=== PATIENT | female | born 1995 | race Caucasian/White ===

== ENCOUNTER 2020-02-07 10:27 | Outpatient (REF) | payer MEDICAID, SELFPAY | END 2020-02-07 10:28 | disposition home or self-care (01) | LOC: HO.LAB 10:27 | PROVIDERS: Visit Provider Internal Medicine | DX: Z20.828 Contact with and (suspected) exposure to other viral communicable diseases (principal) | CPT/HCPCS: C9803; U0003 ==

== ENCOUNTER 2020-09-13 11:40 | Emergency (ER) | payer MEDICAID, SELFPAY ==
[2020-09-13 11:55] VITALS: BP 109/65; PULSE 91; RESP 16; TEMP 36.6; O2SAT 98; BMI 24.0
--- NOTE | 2020-09-13 12:03 | ED.EXTPRO ---
HPI - Extremity Problem General Chief complaint: Extremity Problem Stated complaint: painful lump rt leg Time Seen by Provider: 09/13/20 12:00 Source: patient Mode of arrival: ambulatory Limitations: no limitations History of Present Illness HPI Narrative: 25 y/o female presenting with a painful lump on the outside of her right calf that she noticed when she woke up this morning. She reports soft tissue tenderness in the area of the lateral proximal right calf without any skin changes or swelling. No pain with ambulation. Some discomfort with dorsiflexion and plantarflexion of her foot. She denies trauma, injury, weakness, numbness, or tingling. No redness or bruising to the area. MD Complaint: extremity pain Onset (ago): hour(s) Pain Consistency: intermittent Location: right and lower extremity Severity scale (1-10): 3 Quality: aching Radiation: none Relieving factors: rest Exacerbating factors: palpation Associated symptoms: denies other symptoms Related Data Previous Rx's Medication Instructions Recorded naproxen 500 mg PO BID PRN #20 tab 09/13/20 Allergies Allergy/AdvReac Type Severity Reaction Status Date / Time No Known Allergies Allergy Unverified 11/18/19 16:23 [No Known Allergies*] Review of Systems Review of Systems: Constitutional: No Fever, No Chills Cardiovascular: No Chest Pain, No SOB Respiratory: No dyspnea Gastrointestinal: No Nausea, No Vomiting Musculoskeletal: No joint pain, + Myalgias Skin: No Skin Lesions, No rash Neuro: No Weakness, No Numbness Heme/Lymph: No Bruising, No Lymphadenopathy PMFSH Past Medical History Attestation statement: The following information was validated with the patient. Medical History (Updated 09/13/20 @ 12:12 by LORENZO Martinez) Lumbar disc herniation with radiculopathy No known health problems Social History Social History Advance Directives: Yes Advance Directives Information Provided: No Advance Directives on File: No Patient : No Physical Exam Vital Signs: Vital Signs: Last Vital Signs Temp 97.8 F 09/13/20 11:55 Pulse 91 09/13/20 11:55 Resp 16 09/13/20 11:55 BP 109/65 09/13/20 11:55 Pulse Ox 98 09/13/20 11:55 Body Mass Index 24.0 Appearance: Alert. Oriented X3. No acute distress. HEENT: normal inspection CVS: Normal heart rate and rhythm. Pulses normal. Respiratory: No respiratory distress. Skin: Skin warm and dry. Normal skin color. Normal skin turgor. No rashes. Extremities: right lower leg normal to inspection. anteriolateral aspect of the right lower leg with a small, tender palpable soft tissue lesion in the area of the proximal anterior tibilalis muscle. No posterior calf tenderness, erythema, or swelling. Neuro: Oriented X 3. No motor deficit. No sensory deficit. Course Course Course Narrative: 25 y/o female presenting with nontraumatic right lower leg bump that she noticed this morning. No lesions visible on inspection; there is a small area of tenderness in the anterior tibialis muscle proximally, possible muscle spasm with slight tenderness. No erythema, fluctuance. No calf tenderness or swelling, doubt DVT. Will treat conservatively with shawn wrap, NSAID, ice/heat and have her f/u with PCP. Instructed to come back to the ER if she develops leg swelling, redness, warmth, chest pain or SOB. Stable for discharge home. Critical Care Time Critical Care Time Critical Care Time: No Discharge Plan Discharge Clinical Impression: Muscle spasm of right calf Patient Disposition: Home, Self-Care Instructions: Muscle Spasm (ED) Additional Instructions: Recommend using SHAWN wrap as needed for compression and support. Use ice and/or heat several times per day. Gently massage and stretch the area today. Take the prescribed anti-inflammatory medications as needed for pain and swelling. If you have worsening symptoms including pain, swelling or redness come back to the ER for further evaluation. Prescriptions: New naproxen 500 mg tablet 500 mg PO BID PRN (Reason: pain) Qty: 20 RF: 0 Interventions: ED Discharge Assessment Last Done: 09/13/20 12:33 Discharge Date/Time: 09/13/20 12:34
== END 2020-09-13 12:34 | disposition home or self-care (01) ==
LOC: HO.ED 12:22
PROVIDERS: Emergency Provider Emergency Medicine; PCP Internal Medicine
DX: M62.831 Muscle spasm of calf (principal); Z79.899 Other long term (current) drug therapy
CPT/HCPCS: 99283

== ENCOUNTER 2020-09-25 08:51 | Emergency (ER) | payer MEDICAID, SELFPAY ==
--- NOTE | ~2020-09-25 | US_ITS ---
EXAMINATION: US VENOUS ULTRASOUND WITH DOPPLER LOWER EXTREMITY, RIGHT CLINICAL INFORMATION: Swelling and redness right leg. Evaluate for DVT. Previous history of silicone injections in bilateral buttocks. COMPARISON: None TECHNIQUE: Ultrasound of the deep veins is performed from the hip to the calf with compression sonography and color and pulse Doppler assessment. Spectral analysis with color-flow imaging is performed. FINDINGS: There is normal venous compression and respiratory variation and augmented flow. The visualized common femoral vein, superficial femoral vein, profunda femoral vein, popliteal vein, and the trifurcation region shows no evidence of deep venous thrombosis. There is no significant popliteal fossa cyst. Incidental incidental note is made of distinct ovoid shaped hyperechoic areas in the right lateral davey/cough area corresponding to areas of redness and warmth seen visually. If the patient's symptoms persist, followup ultrasound in 5 days 7 days might be of value to exclude proximal propagation from a non-visualized calf vein. US/US venous duplex LE RT IMPRESSION: No DVT demonstrated in the right lower extremity. Hyperechoic areas along the right lateral davey/calf deep to subcutaneous region. Question focal cellulitis. There is no focal fluid collection seen.
[2020-09-25 08:57] VITALS: BP 98/61; PULSE 104; RESP 16; TEMP 36.7; O2SAT 98; BMI 24.0
--- NOTE | 2020-09-25 09:19 | ED_ITS ---
HPI - Extremity Problem General Chief complaint: Extremity Problem Stated complaint: leg swelling Time Seen by Provider: 09/25/20 09:19 Source: patient Mode of arrival: ambulatory Limitations: no limitations History of Present Illness HPI Narrative: 25 yo female here with with complaints of right leg swelling, redness, warmth and pain x 2 weeks. No injury or trauma. Seen here 09/13 and thought to be muscle spasm and treated conservatively. Patient now feels like the redness and swelling is increased. No SOB/CP. No fevers, chills. S/p lumbar surgery 3-4 weeks ago. Related Data Previous Rx's Medication Instructions Recorded naproxen 500 mg PO BID PRN #20 tab 09/13/20 doxycycline monohydrate 100 mg PO BID #20 cap 09/25/20 Allergies Allergy/AdvReac Type Severity Reaction Status Date / Time No Known Allergies Allergy Unverified 11/18/19 16:23 [No Known Allergies*] Review of Systems Review of Systems: Yes all other systems are reviewed and are negative Constitutional: Constitutional: Reports no additional constitutional complaints, Denies body ache(s), Denies chills, Denies fever(s), Denies headache(s) and Denies weakness Eyes: Eyes: Reports no additional eye complaints and Denies change in vision ENT: Reports system reviewed and no additional complaints, except as documented, Denies dizziness, Denies headache(s), Denies nasal congestion, Denies nasal discharge and Denies neck pain Cardiovascular: Cardiovascular: Reports no additional cardiovascular complaints, Denies chest pain, Reports leg edema and Denies dyspnea Respiratory: Respiratory: Reports no additional respiratory complaints, Denies cough and Denies dyspnea Gastrointestinal: Gastrointestinal: Reports no additional gastrointestinal complaints, Denies abdominal pain, Denies diarrhea, Denies nausea and Denies vomiting Genitourinary: Genitourinary: Reports no additional female genitourinary complaints and Denies urinary incontinence Musculoskeletal: Musculoskeletal: Reports no additional musculoskeletal complaints, Denies back pain, Denies arthralgias, Denies joint swelling, Denies neck pain, Denies numbness and Denies tingling Integumentary/Breasts: Skin/Breast: Reports system reviewed and no additional complaints, except as docu, Reports swelling, Reports erythema and Denies rash Neurologic: Reports system reviewed and no additional complaints, except as documented, Denies Abnormal speech present, Denies dizziness, Denies headache(s), Denies numbness, Denies tingling and Denies weakness PMFSH Past Medical History Attestation statement: The following information was validated with the patient. Source: old records reviewed and nursing notes reviewed Medical History Lumbar disc herniation with radiculopathy No known health problems Social History Social History Advance Directives: Yes Advance Directives Information Provided: No Advance Directives on File: No Patient : No Physical Exam Vital Signs: Vital Signs: Last Vital Signs Temp 98.1 F 09/25/20 08:57 Pulse 104 H 09/25/20 08:57 Resp 16 09/25/20 08:57 BP 98/61 09/25/20 08:57 Pulse Ox 98 09/25/20 08:57 Body Mass Index 24.0 Const: General: cooperative, healthy appearing, comfortable and no acute distress Orientation/consciousness: patient oriented x3 Limitations: no limitations HENMT: Head: Yes normal to inspection Ears: hearing grossly normal bilaterally General nose exam: Normal external nose present Face and sinus: Yes normal facial exam Mouth: Normal oral and palatal mucosa present Throat: Yes posterior oropharynx normal Eyes: General: appearance normal, both eyes and all related structures Pupi ls: Equal, round and reactive pupils present Neck: Neck: Yes normal visual inspection Chest: Chest palpation & inspection: normal inspection of the chest Resp: Effort & Inspection: normal respiratory effort Auscultation: clear to auscultation bilaterally Cardio: Rate: regular rate Rhythm: regular rhythm Peripheral pulses: Peripheral pulses 2+ throughout GI: Inspection: Yes normal to inspection Palpation (GI): Soft to palpation and nontender Auscultation: normal bowel sounds Back/Spine/Pelvis: Thoracic/Lumbar Spine: thoracic and lumbar spine normal to inspection Skin: General skin exam: no rashes or lesions noted Neuro: General: patient oriented x3, no focal motor deficits and normal sensation to monofilament Cranial nerves: Yes Equal, round and reactive pupils present Cognition (Neuro): normal cognition Speech: No Abnormal speech present Gait exam (Neuro): Normal gait present Motor exam (neuro): 5/5 motor strength present throughout Extrem: Other: To the right lateral calf there is a circular area of erythema, tenderness, warmth with no fluctuance or induration. There is swelling to the calf-non pitting. Tenderness to area of erythema and posterior calf. General: Yes normal to inspection Course Course Course Narrative: RLE erythema, warmth, swelling and pain x2 weeks in the setting of recent lumbar surgery. Exam is c/w with area of cellulitis with no obvious drainable fluid collection. D/t swelling of calf with posterior pain will check US to r/o underlying DVT. 1230-labs are unremarkable. The ultrasound is negative for DVT. Ultrasound shows no drainable fluid collection. Likely cellulitis. Will place patient on a brief course of antibiotics. Reviewed worrisome signs and symptoms of when to return to the emergency department. Comfortable discharge home. MDM - Extremity (Nontraumatic) MDM Narrative Medical decision making narrative: dvt, cellulitis Medical Records Attestation: I reviewed the patient's medical records. Lab Data Attestation: I reviewed the patient's lab results. Result diagrams: 09/25/20 10:14 09/25/20 10:14 Labs: Lab Results 09/25/20 09/25/20 Range/Units 10:14 10:14 WBC 7.9 (4.8-10.8) X10*3/uL RBC 4.23 (4.20-5.50) X10*6/uL Hgb 12.7 (12.0-16.0) g/dl Hct 37.3 (37-47) % MCV 88.2 (80-98) fL MCH 30.0 (27.0-33.0) pg MCHC 34.0 (31.0-35.0) g/dl RDW 11.9 (11.0-16.0) % Plt Count 251 (160-400) X10*3/uL MPV 9.6 (9.4-12.3) fL Immature Gran % (Auto) 0.3 (0.0-0.4) % Neut % (Auto) 74.6 H (45-73) % Lymph % (Auto) 18.7 L (20-40) % [place] % (Auto) 5.9 (2-11) % Eos % (Auto) 0.4 (0-4) % Baso % (Auto) 0.1 (0-2) % Lymph # (Auto) 1.5 (1.2-4.9) X10*3/uL [place] # (Auto) 0.5 (0.1-1.2) X10*3/uL Eos # (Auto) 0.0 (0.0-0.4) X10*3/uL Baso # (Auto) 0.0 (0.0-0.2) X10*3/uL Abs Immat Gran (auto) 0.02 (0.00-0.03) X10*3/uL Absolute Neuts (auto) 5.9 (2.0-8.3) X10*3/uL Absolute Nucleated RBC 0.000 (0.0-0.012) X10*3/uL Nucleated RBC % (auto) 0.0 (0.0-0.2) /100WBC Sodium 141 (135-145) mmol/L Potassium 4.4 (3.3-5.1) mmol/L Chloride 108 (96-108) mmol/L Carbon Dioxide 26 (22-29) mmol/L Anion Gap 11 L (12-20) BUN 9 (9-16) mg/dL Creatinine 0.68 (0.5-1.4) mg/dL Estim Creat Clear Calc 107.3 Estimated GFR > 60 Random Glucose 76 (60-115) mg/dL Calcium 8.8 (8.4-10.2) mg/dL Total Bilirubin 0.4 (0.0-1.0) mg/dL Direct Bilirubin 0.2 (0.0-0.5) mg/dL AST 17 (5-31) U/L ALT 11 (0-31) U/L Alkaline Phosphatase 64 (39-117) U/L Total Protein 7.2 (6.5-8.0) g/dL Albumin 4.1 (3.5-5.0) g/dL Imaging Data Venous US: Attestation: I personally reviewed and interpreted this imaging study as follows: Radiologist's impression: FINDINGS: There is normal venous compression and respiratory variation and augmented flow. The visualized common femoral vein, superficial femoral vein, profunda femoral vein, popliteal vein, and the trifurcation region shows no evidence of deep venous thrombosis. There is no significant popliteal fossa cyst. Incidental incidental note is made of distinct ovoid shaped hyperechoic areas in the right lateral davey/cough area corresponding to areas of redness and warmth seen visually. If the patient's symptoms persist, followup ultrasound in 5 days 7 days might be of value to exclude proximal propagation from a non-visualized calf vein. US/US venous duplex LE RT IMPRESSION: No DVT demonstrated in the right lower extremity. Hyperechoic areas along the right lateral davey/calf deep to subcutaneous region. Question focal cellulitis. There is no focal fluid collection seen. Discharge Plan Discharge Clinical Impression: Cellulitis Qualifiers: Site of cellulitis: extremity Site of cellulitis of extremity: lower extremity Laterality: right Qualified Code(s): L03.115 - Cellulitis of right lower limb Patient Disposition: Home, Self-Care Instructions: Cellulitis (ED) Prescriptions: New doxycycline monohydrate 100 mg capsule 100 mg PO BID Qty: 20 RF: 0 No Action naproxen 500 mg tablet 500 mg PO BID PRN (Reason: pain) Qty: 20 RF: 0 Referrals: Wesley Spaulding MD [Primary Care Provider] - 2 days Interventions: ED Discharge Assessment Last Done: 09/25/20 11:44 Discharge Date/Time: 09/25/20 11:44
[2020-09-25 10:21] LABS: MANUAL DIFF FLAG NO
[2020-09-25 10:22] LABS: Basophils Percent Auto 0.1 % (0-2); Eosinophils Percent Auto 0.4 % (0-4); Hematocrit 37.3 % (37-47); Hemoglobin 12.7 g/dl (12.0-16.0); Imm Gran Abs Auto 0.02 X10*3/uL (0.00-0.03); Imm Gran Pct Auto 0.3 % (0.0-0.4); Lymphocytes Absolute Auto 1.5 X10*3/uL (1.2-4.9); Lymphocytes Percent Auto 18.7 % (20-40); Mean Corpuscular Volume 88.2 fL (80-98); Mean Platelet Volume 9.6 fL (9.4-12.3); Monocytes Absolute Auto 0.5 X10*3/uL (0.1-1.2); Monocytes Percent Auto 5.9 % (2-11); Neutrophils Absolute Auto 5.9 X10*3/uL (2.0-8.3); Neutrophils Percent Auto 74.6 % (45-73); Platelet Count 251 X10*3/uL (160-400); Red Blood Count 4.23 X10*6/uL (4.20-5.50); Red Cell Distribution Width 11.9 % (11.0-16.0); White Blood Count 7.9 X10*3/uL (4.8-10.8)
[2020-09-25 10:57] LABS: Alanine Aminotransferase 11 U/L (0-31); Albumin Level 4.1 g/dL (3.5-5.0); Alkaline Phosphatase 64 U/L (39-117); Anion Gap 11 (12-20); Aspartate Amino Transferase 17 U/L (5-31); Bilirubin Direct 0.2 mg/dL (0.0-0.5); Bilirubin Total 0.4 mg/dL (0.0-1.0); Blood Urea Nitrogen 9 mg/dL (9-16); Calcium 8.8 mg/dL (8.4-10.2); Carbon Dioxide 26 mmol/L (22-29); Chloride 108 mmol/L (96-108); Creatinine Clr Calc Pharmacy 107.3; Estimated Glomerular Filt Rate > 60; Glucose Random 76 mg/dL (60-115); Potassium 4.4 mmol/L (3.3-5.1); Sodium 141 mmol/L (135-145); Total Protein 7.2 g/dL (6.5-8.0)
== END 2020-09-25 11:44 | disposition home or self-care (01) ==
PROVIDERS: Nurse Practitioner Family; Emergency Provider Emergency Medicine Emergency Medical Services; PCP Internal Medicine
DX: L03.115 Cellulitis of right lower limb (principal); M79.661 Pain in right lower leg
CPT/HCPCS: 36415; 80048; 80076; 85025; 93971; 99283; 99284

== ENCOUNTER 2020-10-26 13:38 | Emergency (ER) | payer MEDICAID, SELFPAY ==
[2020-10-26 13:40] VITALS: BP 111/68; PULSE 99; RESP 16; TEMP 36.9; O2SAT 98; BMI 25.7
[2020-10-26] MEDS: Erythromycin Base 0.5% Oph Oin 1 GM TUBE 1 CM EYE-BOTH (14:03)
[2020-10-26] MEDS: predniSONE 20 MG TABLET 60 MG PO (14:03)
[2020-10-26] MEDS: Famotidine 20 MG TABLET PO (14:03)
[2020-10-26] MEDS: diphenhydrAMINE HCL 25 MG TABLET PO (14:03)
[2020-10-26] MEDS: Loratadine 10 MG TABLET PO (14:04)
--- NOTE | 2020-10-26 14:05 | ED.ALLEREA ---
HPI - Allergic Reaction General Chief complaint: Allergic Reaction Stated complaint: allergic reaction Time Seen by Provider: 10/26/20 13:57 Source: patient Mode of arrival: ambulatory Limitations: no limitations History of Present Illness MD complaint: allergic reaction and facial swelling Onset (ago): day(s) (1) Exposure: other (false eyelashes and glue) Symptoms: rash, itching, facial swelling and other (runny nose) Severity: severe Treatment prior to arrival: none Previous Allergic Reaction History: none Related Data Previous Rx's Medication Instructions Recorded naproxen 500 mg tablet 500 mg PO BID PRN #20 tab 09/13/20 doxycycline monohydrate 100 mg 100 mg PO BID #20 cap 09/25/20 capsule erythromycin 5 mg/gram (0.5 %) eye 0.5 inch OPHTHALMIC (EYE) BID 7 10/26/20 ointment Days #3.5 g prednisone 20 mg tablet 60 mg PO DAILY 4 Days #12 tab 10/26/20 Allergies Allergy/AdvReac Type Severity Reaction Status Date / Time peach Allergy Angioedema Verified 10/26/20 13:44 plum Allergy Angioedema Verified 10/26/20 13:44 Review of Systems Review of Systems: Constitutional : No Fever, No Chills ENT/Mouth : no oral swelling, No Hoarseness, No Swallowing Difficulty Eyes: pos Eye Pain, pos Swelling, pos Redness Cardiovascular : No Chest Pain, No SOB Respiratory : No Cough, No Sputum, No Wheezing, No Smoke Exposure, No Dyspnea Gastrointestinal : No Nausea, No Vomiting, No Diarrhea, No abdominal Pain Genitourinary : No Dysuria, No Urinary Frequency, No Hematuria Musculoskeletal : No joint pain, No Myalgias, No Joint Swelling Skin : No Skin Lesions, positive rash Neuro : No Weakness, No Numbness, No Headache Psych : No Anxiety/Panic, No Depression Heme/Lymph: No Bruising, No Lymphadenopathy Endocrine : No Polyuria, No Polydipsia All other systems reviewed and are negative PMFSH Past Medical History Medical History Lumbar disc herniation with radiculopathy No known health problems Social History Social History (Updated 10/26/20 @ 14:13 by Marianne Wilkinson DO) Patient Tobacco Use Status: Never used Tobacco Use of substances other than those prescribed or required for medical reasons: No Advance Directives: No Advance Directives Information Provided: No Physical Exam Vital Signs: Vital Signs: Last Vital Signs Temp 98.4 F 10/26/20 13:40 Pulse 99 10/26/20 13:40 Resp 16 10/26/20 13:40 BP 111/68 10/26/20 13:40 Pulse Ox 98 10/26/20 13:40 Body Mass Index 25.7 Appearance: Alert. Oriented X3. No acute distress. Eyes: Pupils equal, round and reactive to light. injected sclera, bilateral mild chemosis, moderate periorbital swelling ENT: Pharynx normal. Neck: Normal inspection. Neck supple. CVS: Normal heart rate and rhythm. Pulses normal. Respiratory: No respiratory distress. Breath sounds normal. Abdomen: Soft and non-tender. Skin: Skin warm and dry. Normal skin color. Normal skin turgor. Extremities: No lower extremity edema. No calf ttp Neuro: Oriented X 3. No motor deficit. No sensory deficit. MDM - Allergic Reaction MDM Narrative Medical decision making narrative: 25 yo female with localized allergic reaction to bilateral eyes following eyelash use - at this time benadryl, claritin, oral steroids, erythromycin ointment ordered. Stable for DC home Discharge Plan Discharge Clinical Impression: Allergic reaction Qualifiers: Encounter type: initial encounter Qualified Code(s): T78.40XA - Allergy, unspecified, initial encounter Patient Disposition: Home, Self-Care Instructions: General Allergic Reaction (ED) Additional Instructions: return to ED for any worsening symptoms or concerns can apply ice pack as well to help to decrease swelling Prescriptions: New prednisone 20 mg tablet 60 mg PO DAILY 4 Days Qty: 12 RF: 0 erythromycin 5 mg/gram (0.5 %) ointment 0.5 inch ophthalmic (eye) BID 7 Days Qty: 3.5 RF: 0 No Action doxycycline monohydrate 100 mg capsule 100 mg PO BID Qty: 20 RF: 0 naproxen 500 mg tablet 500 mg PO BID PRN (Reason: pain) Qty: 20 RF: 0 Stand Alone Forms: Work/School Release
== END 2020-10-26 14:39 | disposition home or self-care (01) ==
PROVIDERS: Emergency Provider Emergency Medicine; PCP Internal Medicine
DX: T78.40XA Allergy, unspecified, initial encounter (principal); H11.423 Conjunctival edema, bilateral; X58.XXXA Exposure to other specified factors, initial encounter
CPT/HCPCS: 99283; 99284; Q0163

== ENCOUNTER 2020-12-08 08:05 | Emergency (ER) | payer MEDICAID, SELFPAY ==
--- NOTE | ~2020-12-08 | US_ITS ---
EXAMINATION: US VENOUS ULTRASOUND WITH DOPPLER LOWER EXTREMITY, RIGHT CLINICAL INFORMATION: right leg lateral palpable mass. Abscess? DVT? COMPARISON: 09/25/2020 TECHNIQUE: Ultrasound of the deep veins is performed from the hip to the calf with compression sonography and color and pulse Doppler assessment. Spectral analysis with color-flow imaging is performed. FINDINGS: There is normal venous compression and respiratory variation and augmented flow. The visualized common femoral vein, superficial femoral vein, profunda femoral vein, popliteal vein, and the trifurcation region shows no evidence of deep venous thrombosis. There is no significant popliteal fossa cyst. No fluid collections or lesions are identified in the area of palpable abnormality at the lateral lower leg. There is subcutaneous edema in this region. If the patient's symptoms persist, followup ultrasound in 5 days 7 days might be of value to exclude proximal propagation from a non-visualized calf vein. US/US venous duplex LE RT IMPRESSION: No DVT demonstrated in the right lower extremity. Subcutaneous edema in the area of palpable abnormality indicated by the patient. No fluid collections are identified.
[2020-12-08 08:19] VITALS: BP 112/56; PULSE 92; RESP 16; O2SAT 100; BMI 26.6
--- NOTE | 2020-12-08 08:42 | ED_ITS ---
HPI - General Adult General Chief complaint: General Medical Stated complaint: lump on rt leg Time Seen by Provider: 12/08/20 08:27 Source: patient Mode of arrival: ambulatory Limitations: no limitations History of Present Illness HPI narrative: Patient presents to the ED for lump on right calf that has been present since August. This is patient's 3rd visit. Patient denies any redness, fever, chills, pus discharge, foul odor, calf pain, any recent trauma, numbness/tingling, chest pain, or shortness of breath. Patient states also have small lump in groin area when she coughs or sit-ups. Patient denies any dys uria, flank pain, vaginal discharge, or vaginal bleeding. Related Data Previous Rx's Medication Instructions Recorded naproxen 500 mg tablet 500 mg PO BID PRN #20 tab 09/13/20 doxycycline monohydrate 100 mg 100 mg PO BID #20 cap 09/25/20 capsule erythromycin 5 mg/gram (0.5 %) eye 0.5 inch OPHTHALMIC (EYE) BID 7 10/26/20 ointment Days #3.5 g prednisone 20 mg tablet 60 mg PO DAILY 4 Days #12 tab 10/26/20 Allergies Allergy/AdvReac Type Severity Reaction Status Date / Time peach Allergy Angioedema Verified 10/26/20 13:44 plum Allergy Angioedema Verified 10/26/20 13:44 Review of Systems Review of Systems: Yes all other systems are reviewed and are negative Constitutional: Constitutional: Reports as per HPI and Reports no additional constitutional complaints Eyes: Eyes: Reports as per HPI and Reports no additional eye complaints ENT: Reports system reviewed and no additional complaints, except as documented and Reports as per HPI Cardiovascular: Cardiovascular: Reports as per HPI and Reports no additional cardiovascular complaints Respiratory: Respiratory: Reports as per HPI and Reports no additional respiratory complaints Gastrointestinal: Gastrointestinal: Reports as per HPI and Reports no joseph tional gastrointestinal complaints Comments: Right groin lump Genitourinary: Genitourinary: Reports no additional female genitourinary complaints and Reports as per HPI Musculoskeletal: Musculoskeletal: Reports no additional musculoskeletal co mplaints Comments: Right leg mass Neurologic: Reports system reviewed and no additional complaints, except as documented and Reports as per HPI Psychiatric: Psychiatric: Reports no additional psychiatric complaints and Reports as per HPI [facility] Past Medical History Medical History Lumbar disc herniation with radiculopathy No known health problems Social History Social History (Updated 10/26/20 @ 14:13 by Marianne Wilkinson DO) Alcohol intake: never Patient Tobacco Use Status: Never used Tobacco Advance Directives: No Patient : No Physical Exam Vital Signs: Vital Signs: Last Vital Signs Pulse 92 12/08/20 08:19 Resp 16 12/08/20 08:19 BP 112/56 L 12/08/20 08:19 Pulse Ox 100 12/08/20 08:19 Body Mass Index 26.6 Const: General: cooperative, healthy appearing, comfortable, no acute distress, well developed, alert, awake and Physically active Orientation/consciousness: patient oriented x3 HENMT: Head: Yes normal to inspection, Yes No palpable skull fracture present, Yes normocephalic, Yes atraumatic and No abrasion Eyes: General: appearance normal, both eyes and all related structures Neck: Neck: Yes normal visual inspection, Yes full ROM, Yes no lymphad enopathy, Yes no meningeal signs, Yes trachea midline, Yes supple and No tender Chest: Chest palpation & inspection: normal inspection of the chest and normal palpation of entire chest wall Resp: Effort & Inspection: normal respiratory effort and able to speak in complete sentences Auscultation: clear to auscultation bilaterally Cardio: Jugular venous distension: no JVD Heart sounds: S1 normal heart sound present and S2 normal heart sound present GI: Other: Small hernia i groin/reproducible. Negative for any abdominal tenderness. Patient denies any complaints. Negative lymphadenopathy. Inspection: Yes normal to inspection and No abdominal wall ecchymosis Palpation (GI): Soft to palpation, not firm, nontender, no guarding and not rigid : General: No CVA tenderness and Yes no CVA tenderness Back/Spine/Pelvis: Back: no CVA tenderness, No CVA tenderness and No back tenderness Skin: General skin exam: no rashes or lesions noted and elasticity normal Neuro: General: patient oriented x3, gait normal, no meningeal signs and CN's II-XI intact bilaterally Cranial nerves: Yes CN's II-XII intact bilaterally Extrem: General: Yes normal to inspection and Yes full ROM Upper/lower leg/hip images: 1. Positive for palpable mass that is non- erythamatous, non-tender, and non-fluctulant on palption. pedal pulses intact. motor, neuro, and vascular exam is intact. Psych: Appearance: grossly normal, well kempt and not disheveled Course Course Course Narrative: History physical exam does not indicate abscess or cellulitis. Most likely lipoma but was sent for repeat ultrasound to make sure is not a blood clot. Abdominal exam benign soft and nontender on palpation. Reevaluation(s) Reevaluation #1: Ultrasound lower extremity came back negative for abscess or blood clot. Informed to follow-up with surgery. Time: 10:13 Medical Decision Making MDM Narrative Medical decision making narrative: Lipoma Discharge Plan Discharge Clinical Impression: Lipoma of both lower extremities, Right groin hernia Patient Disposition: Home, Self-Care Instructions: Inguinal Hernia (ED), Lipoma (ED), Soft Tissue Mass (ED) Additional Instructions: Your ultrasound came back negative for blood clot or abscess. Please follow-up with surgeon for diagnosis of lipoma of leg and hernia right groin. Return to the ED for any increased leg swelling, redness, red streaks, warmth, pus dischar ge, foul odor, fever, chills, abdominal pain, dysuria, hematuria, groin pain, groin swelling, or any other concerning symptoms. Prescriptions: No Action doxycycline monohydrate 100 mg capsule 100 mg PO BID Qty: 20 RF: 0 naproxen 500 mg tablet 500 mg PO BID PRN (Reason: pain) Qty: 20 RF: 0 prednisone 20 mg tablet 60 mg PO DAILY 4 Days Qty: 12 RF: 0 erythromycin 5 mg/gram (0.5 %) ointment 0.5 inch ophthalmic (eye) BID 7 Days Qty: 3.5 RF: 0 Referrals: Sudhakar Lindquist MD [Physician] - 2 days (Right leg lipoma, right groin hernia) Interventions: ED Discharge Assessment Last Done: 12/08/20 10:28 Discharge Date/Time: 12/08/20 10:28 Print Language: Armenian
== END 2020-12-08 10:28 | disposition home or self-care (01) ==
PROVIDERS: Emergency Provider Emergency Medicine Emergency Medical Services; PCP Internal Medicine
DX: D17.23 Benign lipomatous neoplasm of skin and subcutaneous tissue of right leg (principal); D17.24 Benign lipomatous neoplasm of skin and subcutaneous tissue of left leg; K40.90 Unilateral inguinal hernia, without obstruction or gangrene, not specified as recurrent; R60.0 Localized edema
CPT/HCPCS: 93971; 99283; 99284

== ENCOUNTER 2020-12-22 09:33 | Emergency (ER) | payer MEDICAID, SELFPAY ==
[2020-12-22 09:50] VITALS: BP 113/63; PULSE 82; RESP 16; TEMP 36.4; O2SAT 98; BMI 25.7
--- NOTE | 2020-12-22 11:00 | ED.SKABFB ---
HPI - Skin/Abscess/Foreign Bdy General Chief complaint: Skin/Abscess/Foreign Body Stated complaint: rt leg lump Time Seen by Provider: 12/22/20 09:57 Source: patient Mode of arrival: ambulatory Limitations: no limitations History of Present Illness HPI narrative: 25-year-old female presenting to the ED with a lump to her right lateral aspect of her calf that has been there for a few months since August. She reports that she was given antibiotics back in August and her symptoms improved although they are now worsening. She was seen here on 12/08/2020 and had a negative ultrasound for DVT. 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 She has a follow-up with the general surgeon next month. She denies any other symptoms complaints or concerns at this time. complaint: other (Lump) Onset (ago): month(s) (Few months) Location: RLE Severity: mild Quality: aching and constant Pain Consistency: constant Relieving factors: none Exacerbating factors: palpation Context: other (see above ) Associated symptoms: denies other symptoms Treatments prior to arrival: none Related Data Previous Rx's Medication Instructions Recorded naproxen 500 mg tablet 500 mg PO BID PRN #20 tab 09/13/20 doxycycline monohydrate 100 mg 100 mg PO BID #20 cap 09/25/20 capsule erythromycin 5 mg/gram (0.5 %) eye 0.5 inch OPHTHALMIC (EYE) BID 7 10/26/20 ointment Days #3.5 g prednisone 20 mg tablet 60 mg PO DAILY 4 Days #12 tab 10/26/20 doxycycline hyclate 100 mg tablet 100 mg PO BID 10 Days #20 tab 12/22/20 naproxen 500 mg tablet 500 mg PO BID PRN #14 tab 12/22/20 Allergies Allergy/AdvReac Type Severity Reaction Status Date / Time peach Allergy Angioedema Verified 10/26/20 13:44 plum Allergy Angioedema Verified 10/26/20 13:44 Review of Systems Review of Systems: Constitutional : No Weight loss, No Fever, No Chills, No Night Sweats, No Fatigue, NoMalaise ENT/Mouth: No ear pain, No sore throat, No Difficulty swallowing Cardiovascular : No Chest Pain, No SOB, No Dyspnea on Exertion, No Orthopnea, NoEdema, No Palpitations Respiratory : No Cough, No Sputum, No Wheezing, No Dyspnea Gastrointestinal : No Nausea, No Vomiting, No abdominal pain, No Diarrhea, No blood streaked emesis, No coffee-ground emesis, No gross hematemesis, No blood streak stool, No gross hematochezia, No Melena Genitourinary : No irregular bleeding, No Dysuria, No Urinary Frequency, No Hematuria,No Urinary Incontinence, No Urgency, No Flank Pain Musculoskeletal : No lump to right outer leg, No Myalgias, No Joint Swelling Skin : No Skin Lesions, No rash Neuro : No Weakness, No Numbness, No Paresthesias, No Loss of Consciousness, NoDizziness, No Headache Psych : No Social Issues, Heme/Lymph: No Bruising, No Bleeding,No Lymphadenopathy Endocrine : No Polyuria, No Polydipsia, No Temperature Intolerance Yes all other systems are reviewed and are negative [facility] Past Medical History Attestation statement: The following information was validated with the patient. Medical History Lumbar disc herniation with radiculopathy No known health problems Social History Social History Alcohol intake: never Patient Tobacco Use Status: Never used Tobacco Advance Directives: No Patient : Yes Physical Exam Vital Signs: Vital Signs: Last Vital Signs Temp 97.6 F 12/22/20 09:50 Pulse 82 12/22/20 09:50 Resp 16 12/22/20 09:50 BP 113/63 12/22/20 09:50 Pulse Ox 98 12/22/20 09:50 Body Mass Index 25.7 vital signs have been reviewed as normal and appeared to be correct. Blood pressure normal Heart rate normal. Respiration rate normal. Temperature normal. Oxygen saturation normal. Appearance: Alert. Oriented X3. No acute distress. Head: Normal external exam. Normocephalic. Atraumatic. Eyes: PERRLA. EOMI. Conjunctiva and sclera normal. Eyelids normal. ENT: Pharynx normal. Uvula midline. Moist mucous membranes. Neck: Normal inspection. Neck supple. FROM. CVS: Normal heart rate and rhythm. Respiratory: No respiratory distress. Painless inspiration. Skin: Skin warm and dry. Normal skin color. Normal skin turgor. No rashes/lesions/lacerations noted. Extremities: To right lower extremity at the lateral aspect of the lower leg patient has mild soft tissue swelling and tenderness all patient. No erythema/streaking/foreign body/fluctuance or signs of infection noted. No lower extremity edema. No calf tenderness is noted. Otherwise all other extremities exhibit normal range of motion. Extremities nontender. Neuro: Oriented X 3. No motor deficit. No sensory deficit. Reflexes normal. Normal steady gait. No focal neuro deficits noted. Vascular: + radial pulses/+ 2 distal pedal pulses/+2 dorsalis pedis b/l. Normal cap refill. No cyanosis noted to upper extremity nails and lower extremity toes nails. Course Course Course Narrative: 25-year-old female presenting to the ED with a lump to her right lateral aspect of her calf that has been there for a few months since August. She reports that she was given antibiotics back in August and her symptoms improved although they are now worsening. She was seen here on 12/08/2020 and had a negative ultrasound for DVT. 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 She has a follow-up with the general surgeon next month. She denies any other symptoms complaints or concerns at this time. On exam patient appears to have soft tissue swelling possibly a lymphoma it does not appear cellulitic although patient continues to request antibiotics due to she reports that when she was given antibiotics on August her symptoms improved. Therefore will give a course of antibiotics and explained to her that she needs to follow up with the general surgeon her PCP and to return if any new or worsening symptoms. Patient understands agrees with this plan. MDM - Skin/Abscess/Foreign Bdy Medical Records Attestation: I reviewed the patient's medical records. Discharge Plan Discharge Clinical Impression: Localized soft tissue swelling Patient Disposition: Home, Self-Care Instructions: Soft Tissue Mass (ED) Prescriptions: New doxycycline hyclate 100 mg tablet 100 mg PO BID 10 Days Qty: 20 RF: 0 naproxen 500 mg tablet 500 mg PO BID PRN (Reason: pain) Qty: 14 RF: 0 No Action doxycycline monohydrate 100 mg capsule 100 mg PO BID Qty: 20 RF: 0 naproxen 500 mg tablet 500 mg PO BID PRN (Reason: pain) Qty: 20 RF: 0 prednisone 20 mg tablet 60 mg PO DAILY 4 Days Qty: 12 RF: 0 erythromycin 5 mg/gram (0.5 %) ointment 0.5 inch ophthalmic (eye) BID 7 Days Qty: 3.5 RF: 0 Referrals: Wesley Spaulding MD [Primary Care Provider] - 2 days Print Language: Filipino
== END 2020-12-22 11:19 | disposition home or self-care (01) ==
PROVIDERS: Emergency Provider Emergency Medicine; PCP Internal Medicine
DX: R60.0 Localized edema (principal); Z79.899 Other long term (current) drug therapy
CPT/HCPCS: 99283

== ENCOUNTER 2021-08-19 02:45 | Emergency (ER) | payer MEDICAID, SELFPAY ==
[2021-08-19 02:49] VITALS: BP 115/96; PULSE 105; RESP 34; TEMP 36.2; O2SAT 95; BMI 27.4
--- NOTE | 2021-08-19 03:11 | ED.GENADULT ---
HPI - General Adult General Chief complaint: Anxiety Stated complaint: anxiety attack post alcohol Time Seen by Provider: 08/19/21 03:09 Source: patient Limitations: no limitations History of Present Illness HPI narrative: This is a 26-year-old female who admits drinking alcohol tonight, 4 beers, and states that she tends to have a reaction to drinking alcohol were she develops anxiety. The patient notes that she has tingling in her hands. She did vomit few times. She denies abdominal pain. Related Data Previous Rx's Medication Instructions Recorded naproxen 500 mg tablet 500 mg PO BID PRN pain #20 tabs 09/13/20 doxycycline monohydrate 100 mg 100 mg PO BID #20 caps 09/25/20 capsule erythromycin 5 mg/gram (0.5 %) eye 0.5 inch ophthalmic (eye) BID 7 10/26/20 ointment days #3.5 grams prednisone 20 mg tablet 60 mg PO DAILY 4 days #12 tabs 10/26/20 doxycycline hyclate 100 mg tablet 100 mg PO BID 10 days #20 tabs 12/22/20 naproxen 500 mg tablet 500 mg PO BID PRN pain #14 tabs 12/22/20 lorazepam 1 mg tablet 1 mg PO TID PRN anxiety #10 tabs 08/19/21 ondansetron 4 mg disintegrating 4 mg PO Q6H PRN nausea and 08/19/21 tablet vomiting #10 tabs Allergies Allergy/AdvReac Type Severity Reaction Status Date / Time peach Allergy Angioedema Verified 08/19/21 02:51 plum Allergy Angioedema Verified 08/19/21 02:51 Review of Systems Review of Systems: As per HPI [facility] Past Medical History Medical History Lumbar disc herniation with radiculopathy No known health problems Social History Social History Alcohol intake: never Patient Tobacco Use Status: Never used Tobacco Advance Directives: No Advance Directives Information Provided: Yes Physical Exam ED Vital Signs: Vital Signs - 24 hr 08/19/21 02:49 Temperature 97.2 F Pulse Rate 105 H Respiratory Rate 34 H Blood Pressure 115/96 H Pulse Oximetry 95 Oxygen Delivery Method Room Air BMI result Body Mass Index 27.4 Const Other: Patient just excluding with hands, hyperventilating General: no acute distress Orientation/consciousness: patient oriented x3 HENMT Head: Yes normal to inspection General nose exam: Normal external nose present Mouth: moist mucous membranes Throat: Yes posterior oropharynx normal, Yes tonsils normal and Yes uvula midline Eyes Eyelids: Yes eyelids normal Conjunctivae: conjunctivae normal Pupils: Equal, round and reactive pupils present Neck Neck: Yes supple Resp Effort & Inspection: normal respiratory effort Auscultation: clear to auscultation bilaterally Cardio Rate: regular rate Rhythm: regular rhythm Heart sounds: S1 normal heart sound present, S2 normal heart sound present, no gallops, no murmurs and no rubs GI Inspection: No distended Palpation (GI): Soft to palpation and nontender Auscultation: normal bowel sounds Skin General skin exam: other (Warm and dry) Neuro General: patient oriented x3 and CN's II-XI intact bilaterally Cranial nerves: Yes Equal, round and reactive pupils present Extrem General: Yes no pedal edema Psych Affect: normal affect Attitude: cooperative Medical Decision Making [facility] Narrative Medical decision making narrative: Patient with panic attack and hyperventilation, states this happens when she drinks alcohol. Patient admitted having drunk too much, admitted for years. Patient also complained of nausea vomiting. Patient was given Zofran 4 mg, that her Reglan and 10 mg IM, then the 4 mg of Zofran ODT. She is also good Ativan 1 mg, and hyperventilation did improve, as did her nausea. Patient was able to ambulate to the bathroom steadily. Discharge Plan Discharge Clinical Impression: Acute anxiety, Vomiting, Alcohol intoxication Patient Disposition: Home, Self-Care Instructions: Acute Nausea and Vomiting (ED), Panic Disorder (ED) Additional Instructions: Avoid alcohol use if it makes you developed panic attacks. Use lorazepam as prescribed p.r.n. anxiety or panic attack. He has ondansetron as prescribed p.r.n. nausea. Drink Plenty of fluids Prescriptions: New lorazepam 1 mg tablet 1 mg PO TID PRN (Reason: anxiety) Qty: 10 0RF ondansetron 4 mg tablet,disintegrating 4 mg PO Q6H PRN (Reason: nausea and vomiting) Qty: 10 0RF No Action doxycycline monohydrate 100 mg capsule 100 mg PO BID Qty: 20 0RF naproxen 500 mg tablet 500 mg PO BID PRN (Reason: pain) Qty: 20 0RF prednisone 20 mg tablet 60 mg PO DAILY 4 Days Qty: 12 0RF erythromycin 5 mg/gram (0.5 %) ointment 0.5 inch ophthalmic (eye) BID 7 Days Qty: 3.5 0RF doxycycline hyclate 100 mg tablet 100 mg PO BID 10 Days Qty: 20 0RF naproxen 500 mg tablet 500 mg PO BID PRN (Reason: pain) Qty: 14 0RF
[2021-08-19] MEDS: Ondansetron ODT 4 MG TAB.RAPDIS TRANSLINGU ×2 (03:16→05:48)
[2021-08-19] MEDS: LORazepam 2 MG/ML VIAL 1 MG IM (03:17)
[2021-08-19] MEDS: Metoclopramide HCl 10 MG/2 ML VIAL IM (04:11)
== END 2021-08-19 06:41 | disposition home or self-care (01) ==
PROVIDERS: Emergency Provider Emergency Medicine; PCP Internal Medicine
DX: F41.1 Generalized anxiety disorder (principal); F10.129 Alcohol abuse with intoxication, unspecified; R20.2 Paresthesia of skin; Y90.9 Presence of alcohol in blood, level not specified; Z79.899 Other long term (current) drug therapy
CPT/HCPCS: 96372; 99283; 99284; J2060; J2765

== ENCOUNTER 2022-04-08 23:24 | Emergency (ER) | payer OTHER, SELFPAY ==
[2022-04-08 23:37] VITALS: BP 112/65; PULSE 91; RESP 18; TEMP 36.9; O2SAT 98; BMI 26.6
--- NOTE | 2022-04-09 00:16 | ED_ITS ---
HPI - Eye Problem General Chief complaint: Eye Problems Stated complaint: Red, Itchy eyes Time Seen by Provider: 04/09/22 00:05 Source: patient Mode of arrival: ambulatory Limitations: no limitations History of Present Illness HPI Narrative: 27-year-old female with no major medical problems presents with bilateral eye pain, redness, swelling and irritation. She also describes wilber discharge. There is no photophobia. Symptoms are moderate in nature. Daughter also has similar symptoms. Patient was tested positive for COVID 1 week ago. Related Data Previous Rx's Medication Instructions Recorded naproxen 500 mg tablet 500 mg PO BID PRN pain #20 tabs 09/13/20 doxycycline monohydrate 100 mg 100 mg PO BID #20 caps 09/25/20 capsule erythromycin 5 mg/gram (0.5 %) eye 0.5 inch ophthalmic (eye) BID 7 10/26/20 ointment days #3.5 grams prednisone 20 mg tablet 60 mg PO DAILY 4 days #12 tabs 10/26/20 doxycycline hyclate 100 mg tablet 100 mg PO BID 10 days #20 tabs 12/22/20 naproxen 500 mg tablet 500 mg PO BID PRN pain #14 tabs 12/22/20 lorazepam 1 mg tablet 1 mg PO TID PRN anxiety #10 tabs 08/19/21 ondansetron 4 mg disintegrating 4 mg PO Q6H PRN nausea and 08/19/21 tablet vomiting #10 tabs polymyxin B sulfate 10,000 1 drp ophthalmic (eye) Q3H 7 days 04/09/22 unit-trimethoprim 1 mg/mL eye #10 mL drops (Polytrim) Allergies Allergy/AdvReac Type Severity Reaction Status Date / Time peach Allergy Angioedema Verified 04/08/22 23:39 plum Allergy Angioedema Verified 04/08/22 23:39 Review of Systems Review of Systems: CONSTITUTIONAL: Denies weight loss, fever and chills. HEENT: Denies changes in vision and hearing. RESPIRATORY: Denies SOB and cough. CV: Denies palpitations no CP. GI: Denies abdominal pain, nausea, vomiting and diarrhea. : Denies dysuria and urinary frequency. MSK: Denies myalgia and joint pain. SKIN: Denies rash and pruritus. NEUROLOGICAL: Denies headache and syncope. PSYCHIATRIC: Denies recent changes in mood. Denies anxiety and depression. All other ROS are negative unless in HPI PMFSH Past Medical History Medical History Lumbar disc herniation with radiculopathy No known health problems Social History Social History Alcohol intake: never Patient Tobacco Use Status: Never used Tobacco Physical Exam Vital Signs: Vital Signs: Last Vital Signs Temp 98.5 F 04/08/22 23:37 Pulse 91 04/08/22 23:37 Resp 18 04/08/22 23:37 BP 112/65 04/08/22 23:37 Pulse Ox 98 04/08/22 23:37 O2 Del Method 04/08/22 23:37 BMI result Body Mass Index 26.6 GEN: Well developed, no acute distress, alert, oriented HEENT: Normocephalic, atraumatic, normal external ears, nose appears normal Eyes: Bilateral conjunctival injection Neck: Supple, no lymphadenopathy Respiratory: Talks in complete sentences, no respiratory distress Extremities: No clubbing cyanosis or edema Neurologic: No focal neurologic deficits, cranial nerves 2-12 intact, gait normal Skin: No rash Course Course Course Narrative: 27-year-old female presents with bilateral conjunctivitis. This is likely viral but could possibly be bacterial. Patient will start Polytrim as prescribed. She will follow up with her primary care provider for continued symptoms. She was instructed to continue the Polytrim for 2 days past the cessation of symptoms. Also discussed appropriate hygiene. Medical Decision Making Medical Decision Making [facility] Narrative: 27-year-old female presents with bilateral conjunctivitis. This is likely viral but could possibly be bacterial. Patient will start Polytrim as prescribed. She will follow up with her primary care provider for continued symptoms. She was instructed to continue the Polytrim for 2 days past the cessation of symptoms. Also discussed appropriate hygiene. Differential Diagnosis Differential Diagnoses: The differential diagnosis associated with the presentation includes (Viral conjunctivitis, bacterial conjunctivitis, chemical conjunctivitis, allergic conjunctivitis, eye irritation) Prescription Management I considered prescription management with: Pain Medication Discharge Plan Discharge Clinical Impression: Conjunctivitis Patient Disposition: Home, Self-Care Prescriptions: New polymyxin B sulf-trimethoprim [Polytrim] 10,000 unit- 1 mg/mL drops 1 drp ophthalmic (eye) Q3H 7 Days Qty: 10 0RF Rx Instructions: while awake; do not exceed 6 doses in 24 hours No Action doxycycline monohydrate 100 mg capsule 100 mg PO BID Qty: 20 0RF naproxen 500 mg tablet 500 mg PO BID PRN (Reason: pain) Qty: 20 0RF prednisone 20 mg tablet 60 mg PO DAILY 4 Days Qty: 12 0RF erythromycin 5 mg/gram (0.5 %) ointment 0.5 inch ophthalmic (eye) BID 7 Days Qty: 3.5 0RF lorazepam 1 mg tablet 1 mg PO TID PRN (Reason: anxiety) Qty: 10 0RF ondansetron 4 mg tablet,disintegrating 4 mg PO Q6H PRN (Reason: nausea and vomiting) Qty: 10 0RF doxycycline hyclate 100 mg tablet 100 mg PO BID 10 Days Qty: 20 0RF naproxen 500 mg tablet 500 mg PO BID PRN (Reason: pain) Qty: 14 0RF
== END 2022-04-09 00:41 | disposition home or self-care (01) ==
PROVIDERS: Emergency Provider Emergency Medicine; PCP Internal Medicine
DX: H10.33 Unspecified acute conjunctivitis, bilateral (principal); Z79.899 Other long term (current) drug therapy
CPT/HCPCS: 99282; 99283

== ENCOUNTER 2023-08-27 07:42 | Emergency (ER) | payer OTHER, SELFPAY ==
[2023-08-27 07:44] VITALS: BP 132/81; PULSE 74; RESP 22; TEMP 36.6; O2SAT 100; BMI 26.0
--- NOTE | 2023-08-27 07:50 | ECG_ITS ---
Test Reason : CHEST PAIN Blood Pressure : / mmHG Vent. Rate : 070 BPM Atrial Rate : 070 BPM P-R Int : 130 ms QRS Dur : 072 ms QT Int : 432 ms P-R-T Axes : 062 072 066 degrees QTc Int : 466 ms Normal sinus rhythm Normal ECG When compared with ECG of 26-JAN-2012 09:57, No significant change was found Referred By: Generic ED Physician Electronically Signed By:MADHU JAMES MD
--- NOTE | 2023-08-27 08:15 | ED_ITS ---
HPI - General Adult General Chief complaint: General Medical Stated complaint: Kidney failure, fever, vomiting Time Seen by Provider: 08/27/23 07:59 Source: patient Mode of arrival: ambulatory Limitations: no limitations History of Present Illness ED Provider: Dr. Levy HPI narrative: Patient with a complicated history which includes removal of silicon buttock implants at [facility] in [place], followed by infection and renal failure and was admitted to [facility]. Patient was just discharged from [facility] yesterday and comes in today with anxiety and nausea. Patient is very upset Onset (ago): week(s) Severity: moderate Related Data Previous Rx's ?Medication ?Instructions ?Recorded naproxen 500 mg tablet 500 mg PO BID PRN pain #20 tabs 09/13/20 doxycycline monohydrate 100 mg 100 mg PO BID #20 caps 09/25/20 capsule erythromycin 5 mg/gram (0.5 %) eye 0.5 inch ophthalmic (eye) BID 7 10/26/20 ointment days #3.5 grams prednisone 20 mg tablet 60 mg (3 x 20 mg) PO DAILY 4 days 10/26/20 #12 tabs doxycycline hyclate 100 mg tablet 100 mg PO BID 10 days #20 tabs 12/22/20 naproxen 500 mg tablet 500 mg PO BID PRN pain #14 tabs 12/22/20 lorazepam 1 mg tablet 1 mg PO TID PRN anxiety #10 tabs 08/19/21 ondansetron 4 mg disintegrating 4 mg PO Q6H PRN nausea and 08/19/21 tablet vomiting #10 tabs polymyxin B sulfate 10,000 1 drp ophthalmic (eye) Q3H 7 days 04/09/22 unit-trimethoprim 1 mg/mL eye #10 mL drops (Polytrim) Allergies Allergy/AdvReac Type Severity Reaction Status Date / Time peach Allergy Angioedema Verified 08/27/23 07:48 plum Allergy Angioedema Verified 08/27/23 07:48 Review of Systems 2 Review of Systems: Yes all other systems are reviewed and are negative Neurologic: Denies Sensory deficit (Neuro) PMFSH Past Medical History Medical History Lumbar disc herniation with radiculopathy No known health problems Social History Social History Alcohol intake: never Patient Tobacco Use Status: Never used Tobacco Use of substances other than those prescribed or required for medical reasons: No Advance Directives: No Physical Exam ED Vital Signs: Vital Signs - 24 hr 08/27/23 07:44 Temperature 97.9 F Pulse Rate 74 Respiratory Rate 22 H Blood Pressure 132/81 Pulse Oximetry 100 Oxygen Delivery Method Room Air BMI result Body Mass Index 26.0 Const Other: anxious, angry, tearful General: healthy appearing Nutritional Appearance: average body habitus Orientation/consciousness: oriented to person and patient oriented x3 Limitations: no limitations HENMT Head: Yes normal to inspection Ears: external ears normal General nose exam: Normal external nose present Mouth: Normal oral and palatal mucosa present and oropharynx normal Throat: Yes posterior oropharynx normal Eyes General: appearance normal, both eyes and all related structures Neck Neck: Yes normal visual inspection Chest Chest palpation & inspection: normal inspection of the chest Resp Auscultation: clear to auscultation bilaterally Cardio Jugular venous distension: no JVD Rate: regular rate Rhythm: regular rhythm Heart sounds: S1 normal heart sound present and S2 normal heart sound present GI Inspection: Yes normal to inspection Palpation (GI): Soft to palpation, nontender and No hepatosplenomegaly present Auscultation: normal bowel sounds General: Yes no CVA tenderness Back/Spine/Pelvis Back: no CVA tenderness Skin Other: buttock drain in place, no erythema no pus General skin exam: no rashes or lesions noted Neuro General: oriented to person and patient oriented x3 Cranial nerves: Yes CN's II-XII intact bilaterally Motor exam (neuro): 5/5 motor strength present throughout Sensory Exam: No Sensory deficit (Neuro) Extrem General: Yes normal to inspection Psych Appearance: grossly normal Course Reevaluation(s) Reevaluation #1: No infection or renal failure seen will dc home Time: 10:57 Medications Administered Discontinued Medications Generic Name Dose Route Start Last Admin Trade Name Freq PRN Reason Stop Dose Admin Diphenhydramine HCl 25 mg 08/27/23 09:44 08/27/23 10:03 Diphenhydramine Hcl 50 Mg/Ml Vial IVPUSH 08/27/23 09:45 25 mg ONCE ONE Administration Sodium Chloride 1,000 mls @ 500 mls/hr 08/27/23 08:30 08/27/23 08:56 Ns IVCONT 08/27/23 10:29 500 mls/hr .Q2H PATRICIA Administration Lorazepam 1 mg 08/27/23 08:16 08/27/23 08:56 Lorazepam 2 Mg/Ml Vial IVPUSH 08/27/23 08:17 1 mg STAT STA Administration Metoclopramide HCl 10 mg 08/27/23 09:44 08/27/23 10:03 Metoclopramide Hcl 10 Mg/2 Ml Vial IVPUSH 08/27/23 09:45 10 mg ONCE ONE Administration Medical Decision Making Differential Diagnosis Differential Diagnoses: The differential diagnosis associated with the presentation includes (renal failure, UTI, anxiety) Admission/Observation Consideration of admission/observation: Escalation of care including admission/observation considered (upon arrival patient considered for admission) Lab Data MDM Lab Attestation statement: I reviewed the patient's lab results. (urine appears contaminated will wait for CX) 08/27/23 08:49 08/27/23 09:07 Labs: Lab Results 08/27/23 08/27/23 08/27/23 Range/Units 08:49 09:07 10:05 WBC 6.5 (4.8-10.8) X10*3/uL RBC 3.88 L (4.20-5.50) X10*6/uL Hgb 10.7 L (12.0-16.0) g/dl Hct 31.1 L (37.0-47.0) % MCV 80.2 (80.0-98.0) fL MCH 27.6 (27.0-33.0) pg MCHC 34.4 (31.0-35.0) g/dl RDW 13.6 (11.0-16.0) % Plt Count 301 (160-400) X10*3/uL MPV 10.8 (9.4-12.3) fL Immature Gran % (Auto) 0.3 (0.0-0.4) % Neut % (Auto) 79.2 H (45-73) % Lymph % (Auto) 13.9 L (20-40) % Hudson % (Auto) 5.6 (2-11) % Eos % (Auto) 0.5 (0-4) % Baso % (Auto) 0.5 (0-2) % Lymph # (Auto) 0.9 L (1.2-4.9) X10*3/uL Hudson # (Auto) 0.4 (0.1-1.2) X10*3/uL Eos # (Auto) 0.0 (0.0-0.4) X10*3/uL Baso # (Auto) 0.0 (0.0-0.2) X10*3/uL Abs Immat Gran (auto) 0.02 (0.00-0.03) X10*3/uL Absolute Neuts (auto) 5.1 (2.0-8.3) x10*3/uL Absolute Nucleated RBC 0.000 (0.0-0.012) X10*3/uL Nucleated RBC % (auto) 0.0 (0.0-0.2) /100WBC Sodium 143 (135-145) mmol/L Potassium 3.4 (3.3-5.1) mmol/L Chloride 110 H (96-108) mmol/L Carbon Dioxide 19 L (22-29) mmol/L Anion Gap 17 (12-20) BUN 8 L (9-16) mg/dL Creatinine 1.40 (0.5-1.4) mg/dL Estim Creat Clear Calc 55.9 Estimated GFR 44 Random Glucose 89 (60-115) mg/dL Calcium 9.0 (8.4-10.2) mg/dL Total Bilirubin 0.4 (0.0-1.0) mg/dL AST 24 (5-31) U/L ALT 23 (0-31) U/L Alkaline Phosphatase 76 (39-117) U/L Total Protein 7.4 (6.5-8.0) g/dL Albumin 3.9 (3.5-5.0) g/dL Lipase 181 H (8-78) U/L Urine Color Yellow Urine Appearance Clear Urine pH 7.5 (5.0-9.0) Ur Specific Roby 1.010 (1.005-1.025) Urine Protein Trace (Neg-Trace) mg/dL Urine Glucose (UA) Negative (Negative) mg/dL Urine Ketones 80 (Negative) mg/dL Urine Blood Trace H (Negative) Urine Nitrite Negative (Negative) Ur Leukocyte Esterase Trace H (Negative) Urine RBC 3-5 H (0-2) /HPF Urine WBC 6-10 H (0-5) /HPF Ur Squamous Epith Cells 6-10 (0-2) /HPF Urine Bacteria None Seen (None Seen) Hyaline Casts 3-5 (0-2) /LPF Urine Test NEGATIVE (NEGATIVE) Independent Interpretation I performed an independent interpretation of an: EKG (sinus [address] or twave changes) Prescription Management I considered prescription management with: Antibiotic (no evidence of infection) Discharge Plan Discharge Clinical Impression: Anxiety Patient Disposition: Home, Self-Care Instructions: Panic Disorder (ED), Anxiety (ED) Prescriptions: No Action doxycycline monohydrate 100 mg capsule 100 mg PO BID Qty: 20 0RF naproxen 500 mg tablet 500 mg PO BID PRN (Reason: pain) Qty: 20 0RF prednisone 20 mg tablet 60 mg PO DAILY 4 Days Qty: 12 0RF erythromycin 5 mg/gram (0.5 %) ointment 0.5 inch ophthalmic (eye) BID 7 Days Qty: 3.5 0RF lorazepam 1 mg tablet 1 mg PO TID PRN (Reason: anxiety) Qty: 10 0RF ondansetron 4 mg tablet,disintegrating 4 mg PO Q6H PRN (Reason: nausea and vomiting) Qty: 10 0RF polymyxin B sulf-trimethoprim [Polytrim] 10,000 unit- 1 mg/mL drops 1 drp ophthalmic (eye) Q3H 7 Days Qty: 10 0RF Rx Instructions: while awake; do not exceed 6 doses in 24 hours doxycycline hyclate 100 mg tablet 100 mg PO BID 10 Days Qty: 20 0RF naproxen 500 mg tablet 500 mg PO BID PRN (Reason: pain) Qty: 14 0RF Referrals: Physician,Unknown J [Primary Care Provider] - 3 days Print Language: Cameroonian
[2023-08-27 08:52] LABS: MANUAL DIFF FLAG NO
[2023-08-27 08:55] LABS: Basophils Percent Auto 0.5 % (0-2); Eosinophils Percent Auto 0.5 % (0-4); Hematocrit 31.1 % (37.0-47.0); Hemoglobin 10.7 g/dl (12.0-16.0); Imm Gran Abs Auto 0.02 X10*3/uL (0.00-0.03); Imm Gran Pct Auto 0.3 % (0.0-0.4); Lymphocytes Absolute Auto 0.9 X10*3/uL (1.2-4.9); Lymphocytes Percent Auto 13.9 % (20-40); Mean Corpuscular HGB Conc 34.4 g/dl (31.0-35.0); Mean Corpuscular Hemoglobin 27.6 pg (27.0-33.0); Mean Corpuscular Volume 80.2 fL (80.0-98.0); Mean Platelet Volume 10.8 fL (9.4-12.3); Monocytes Absolute Auto 0.4 X10*3/uL (0.1-1.2); Monocytes Percent Auto 5.6 % (2-11); Neutrophils Absolute Auto 5.1 x10*3/uL (2.0-8.3); Neutrophils Percent Auto 79.2 % (45-73); Platelet Count 301 X10*3/uL (160-400); Red Blood Count 3.88 X10*6/uL (4.20-5.50); Red Cell Distribution Width 13.6 % (11.0-16.0); White Blood Count 6.5 X10*3/uL (4.8-10.8)
[2023-08-27] MEDS: LORazepam 2 MG/ML VIAL 1 MG IVPUSH (08:56)
[2023-08-27] MEDS: 0.9 % Sodium Chloride 1,000 ML 500 ML IVCONT (08:56)
[2023-08-27 09:25] LABS: Alanine Aminotransferase 23 U/L (0-31); Albumin Level 3.9 g/dL (3.5-5.0); Alkaline Phosphatase 76 U/L (39-117); Anion Gap 17 (12-20); Aspartate Amino Transferase 24 U/L (5-31); Bilirubin Total 0.4 mg/dL (0.0-1.0); Blood Urea Nitrogen 8 mg/dL (9-16); Carbon Dioxide 19 mmol/L (22-29); Chloride 110 mmol/L (96-108); Creatinine Clr Calc Pharmacy 55.9; Estimated Glomerular Filt Rate 44; Glucose Random 89 mg/dL (60-115); Lipase 181 U/L (8-78); Potassium 3.4 mmol/L (3.3-5.1); Sodium 143 mmol/L (135-145); Total Protein 7.4 g/dL (6.5-8.0)
[2023-08-27] MEDS: diphenhydrAMINE HCL 50 MG/ML VIAL 25 MG IVPUSH (10:03)
[2023-08-27] MEDS: Metoclopramide HCl 10 MG/2 ML VIAL IVPUSH (10:03)
[2023-08-27 10:11] LABS: Appearance Urine Clear; Color Urine Yellow; Glucose Urine UA Negative (Negative); Leukocyte Esterase Urine Trace (Negative); Nitrite Urine Negative (Negative); PH 7.5 (5.0-9.0); UMIC TRIGGER UACC YES; Urine Blood Trace (Negative); Urine Ketones 80 mg/dL (Negative); Urine Protein Trace mg/dL (Neg-Trace)
[2023-08-27 10:13] LABS: Bacteria Urine None Seen (None Seen); UACC Culture Trigger YES; UPreg QC Valid YES; Urine Pregnancy NEGATIVE (NEGATIVE)
== END 2023-08-27 11:00 | disposition home or self-care (01) ==
PROVIDERS: Emergency Provider Emergency Medicine
DX: F41.9 Anxiety disorder, unspecified (principal); R11.0 Nausea; Z98.890 Other specified postprocedural states
CPT/HCPCS: 36415; 80053; 81001; 81025; 83690; 85025; 87086; 93005; 96374; 96375; 99284; J1200; J2060; J2765

== ENCOUNTER → 2023-08-27 07:50 | Outpatient (BNV) | payer OTHER, SELFPAY | PROVIDERS: Emergency Provider Emergency Medicine; Visit Provider Internal Medicine Cardiovascular Disease | DX: R07.9 Chest pain, unspecified (principal) | CPT/HCPCS: 93010 ==

== ENCOUNTER 2024-06-07 10:25 | Emergency (ER) | payer OTHER, SELFPAY ==
[2024-06-07 10:42] VITALS: BP 91/61; PULSE 97; RESP 22; TEMP 37.2; O2SAT 98; BMI 24.0
--- OUTSIDE RECORDS SUMMARY | 2024-06-07 14:54 | XMS_ITS | Clinical Summary ---
Author Organization [facility] [address] [place] [address] [place] [phone] Phone Care Team Providers Care Offender Employment Specialist Name Role Phone Shantell Cosby MD Primary Care Provider [phone] Allergies Active Allergy Reactions Criticality Noted Date Comments Apple Swelling High 10/12/2020 Mouth and throught swell and tingle. Apple Juice Swelling High 10/12/2020 Mouth and throught swell and tingle. Other Itching 11/07/2022 [place] (Prunus Persica) Angioedema High 08/25/2020 [place] Angioedema High 08/25/2020 Medications traZODone (DESYREL) 50 mg tablet Take 1 tablet (50 mg total) by mouth at bedtime. Active gabapentin (NEURONTIN) 400 mg capsule Take 1 capsule (400 mg total) by mouth 1 (one) time each day. 90 capsule 1 5 Active melatonin 5 mg tablet Take 1 tablet (5 mg total) by mouth at bedtime as needed for sleep. 90 tablet 1 5 Active hydrocortisone 1 % topical cream Apply 1 Application topically 2 (two) times a day. APPLY TO AFFECTED AREA 30 g 2 5 Active Active Problems Problem Noted Date Diagnosed Date Lumbar radiculopathy 02/04/2024 Neuropathy 11/07/2022 Insomnia 11/07/2022 Herniated lumbar intervertebral disc 11/07/2022 Nerve injury 05/10/2022 Foreign body of buttock 06/29/2021 Displacement of lumbar inter vertebral disc without myelopathy 08/25/2020 Right sacral radiculopathy 08/20/2019 Right leg numbness 08/20/2019 Difficult intubation 02/12/2018 Overview (02/04/2024): Grade View Grade III; Insertion Attempts 3 or more; Placement Verification Auscultation, Symmetrical chest wall movement, Capnometry; Comments 2 attempts with MAC 3, grade 3 view both times. Used a bougie - however esophageal. 3rd attempt with stylet and still a grade 3 view however able to intubate. Encounters Date Type Department Care Team Description 05/17/2024 Telephone Adult Medicine [address] [phone] Shantell Cosby MD 04/08/2024 8:30 AM EST Office Visit Adult Medicine [address] [phone] Shantell Cosby MD Joint stiffness of both wrists (Primary Dx); Vitamin D deficiency; Iron deficiency; Neuropathy; Foreign body of buttock, subsequent encounter from Last 3 Months Immunizations Name Administration Dates Next Due DTaP (Infanrix) 6wks to less than 7yo ,09/23/1994,1993,07/11,1993 HPV 9-valent (Gardisil) 9yo to less than 46yo 11/27/2006 HPV, Unspecified 06/16/2007,02/13/2007 Hepatitis B ([id number]-Ktlnb , Recombivax HB-Adult) 19yo and older 08/31/2012,1993,1993 Hepatitis B Pediatric (Enger ix B; Recombivax HB) to less than 20 yo 1993 HiB 1993,1993 HiB PRP-T conjugate (Acthib, Hiberix) 6wks and older 1993 IPV Inactivated polio (Ipol) 6wks and older 03/08/1998,1993,1993,05/25 Influenza Quadrivalent, 0.5m l, preservative free (Fluarix; FluLaval; Fluzone) ages 6mo and older (Afluria) 3yo and older 11/29/2020 Influenza Quadrivalent, with preservative (Fluzone; Afluria) 6mo and older 11/02/2011,12/03/2010 Influenza trivalent, 0.5mL, preservative free (Fluarix; FluLaval; Fluzone) ages 6mo and older (Afluria) 3 years and older 11/29/2020 MMR, measles mumps and rubel la Live (Priorix; M-M-R II) 12mo and older 03/08/1998,03/11/1994 Meningococcal MCV4P 11/29/2020 Meningococcal, Unspecified 11/27/2006 Pfizer (ages 12 & older) Biv alent, COVID-19 12/24/2021 Td Tetanus diptheria (Tdvax) 7yo and older 11/29/2020,06/04/2004 Tdap Tetanus diptheria acell ular pertussis (Boostrix; Adacel) 7yo and older 11/27/2006 Surgical History Surgery Date Site/Laterality Comments OTHER SURGICAL HISTORY 2019 PROCEDURE: HISTORY OTHER; COMMENT: Lumbar disectomy/ [facility] Medical History Medical History Date Comments Insomnia DX:Insomnia Herniated lumbar intervertebral disc DX:Herniated lumbar intervertebral disc Social History Tobacco Use Types Packs/Day Years Used Date Smoking Tobacco: Former Cigarettes Q uit: 03/03/2022 Smokeless Tobacco: Never Alcohol Use Standard Drinks/Week Comments Yes 0 (1 standard drink = 0.6 oz pur e alcohol) Comments Unknown Sex and Gender Information Value Date Recorded Sex Assigned at Not on file Legal Sex Female 11:12 PM EST Gender Identity Not on file Sexual Orientation Not on file Obstetrics History Last Filed Vital Signs Vital Sign Reading Time Taken Comments Blood Pressure 98/68 04/08/2024 8:12 AM EST Pulse 72 04/08/2024 8:12 AM EST Temperature 36.6 ??C (97.8 ??F) 04/08/2024 8:12 AM ES T Respiratory Rate 14 04/08/2024 8:12 AM EST Oxygen Saturation - - Inhaled Oxygen Concentration - - Weight 65.8 kg (145 lb) 04/08/2024 8:12 AM EST Height 162.6 cm (5' 4 ) 04/08/2024 8:12 AM EST Body Mass Index 24.89 04/08/2024 8:12 AM EST Plan of Treatment Upcoming Encounters Date Type Department Care Team (Late st Contact Info) Description 07/02/2024 8:00 AM EDT Consult General Surgery - [facility] [address] [place] [phone] Garcia Fabian MD [address] [place] [address] 08/04/2024 8:00 AM EDT Office Visit Adult Medicine [facility] [place] [address] [place] [phone] Shantell Cosby MD [address] [place] [address] Health Maintenance Due Date Last Done Comments HIV Screening 04/02/2023 Hepatitis C Screening 04/02/2023 Social Influencers of Health Screening 04/02/2023 COVID-19 Vaccine ( season) 2023 12/24/2021, 04/16/2021, 08/24/2020, Additional history exists Depression Screening 03/28/2024 03/28/2023 Influenza Vaccine (Season Ended) 2024 11/29/2020, 11/29/2020, 11/02/2011, Additional history exists Cervical Cancer Screening: Pap Smear 11/12/2025 11/12/2022 Cholesterol Screening (Lipid Panel) 11/08/2027 11/07/2022 DTaP,Tdap,and Td Vaccines (9 - Td or Tdap) 11/29/2030 11/29/2020, 11/27/2006, 06/04/2004, Additional history exists HIB Vaccines Aged Out 1993, 07/01, 1993 No longer eligible based on patient's age to complete this topic IPV Vaccines Completed 03/08/1998, 08/31, 1993, Additional history exists MMR Vaccines Completed 03/08/1998, 03/11/1994 HPV Vaccines Completed 06/16/2007, 01/31, 11/27/2006 Hepatitis B Vaccines Completed 08/31/2012, 1993, 1993, Additional history exists Meningococcal ACWY Vaccine Aged Out 11/29/2020, No longer eligible based on patient's age to complete this topic Hepatitis A Vaccines Aged Out No long er eligible based on patient's age to complete this topic Meningococcal B Vaccine Aged Out No l onger eligible based on patient's age to complete this topic Pneumococcal Vaccine: Pediatrics (0 to 5 Years) and At-Risk Patients (6 to 64 Years) Aged Out No longer eligible based on patient's age to complete this topic RSV Immunization Patients Under 20 months Aged Out No longer eligible based on patient's age to complete this topic Varicella Vaccines Aged Out No longer eligible based on patient's age to complete this topic Procedures Procedure Name Priority Date/Time Associated Diagnosis Comments CBC WITH AUTO DIFFERENTIAL Routine 04/09/2024 8:26 AM EST Joint stiffness of both wrists COMPREHENSIVE METABOLIC PANEL Routine 04/09/2024 8:26 AM EST Joint stiffness of both wrists CBC AND DIFFERENTIAL Routine 04/09/2024 8:26 AM EST Joint stiffness of both wrists VITAMIN D 25 HYDROXY Routine 04/09/2024 8:26 AM EST Vitamin D deficiency THYROID STIMULATING HORMONE WITH REFLEX TO FREE T4 AND FREE T3 Routine 04/09/2024 8:26 AM EST Joint stiffness of both wrists IRON AND TIBC Routine 04/09/2024 8:26 AM EST Iron deficiency FERRITIN Routine 04/09/2024 8:26 AM EST Iron deficiency VITAMIN B12 AND FOLATE Routine 8:26 AM EST Iron deficiency CYCLIC CITRULLINATED PEPTIDE, IGG AND IGA Routine 04/09/2024 8:26 AM EST Joint stiffness of both wrists STANLEY IFA WITH TITER AND PATTERN Routine 04/09/2024 8:26 AM EST Joint stiffness of both wrists RHEUMATOID FACTOR Routine 04/09/2024 8:2 6 AM EST Joint stiffness of both wrists C-REACTIVE PROTEIN Routine 04/09/2024 8: 26 AM EST Joint stiffness of both wrists SEDIMENTATION RATE Routine 04/09/2024 8: 26 AM EST Joint stiffness of both wrists CT ABDOMEN PELVIS WO AND W CONTRAST Routine 03/12/2024 10:34 AM EST HM DEPRESSION SCREENING Routine 03/28/2023 HM PAP SMEAR Routine 11/12/2022 LIPID PANEL Routine 11/07/2022 from Last 3 Months or Most Recently Relevant to Health Maintenance Results * Thyroid stimulating hormone with reflex to free t4 and free t3 (04/09/2024 8:26 AM EST) Pathologist [facility] TSH 2.28 0.40 - 4.00 mcIU/mL LAB CHEMISTRY METHOD 04/09/2024 10:27 AM EST [facility] Blood Venous blood specimen / Unknown Venipuncture / Unknown 04/09/2024 8:26 AM EST 04/09/2024 8:26 AM EST us Shantell Cosby MD LAB BLOOD ORDERABLES Final Resul t [facility] [address] [place] [address], * (ABNORMAL) Vitamin B12 and folate (04/09/2024 8:26 AM EST) Pathologist [facility] Vitamin B-12 295 250 - 900 pcg/mL LAB CHEMISTRY METHOD 04/09/2024 10:41 AM EST [facility] Folate 18.9(H) 2.8 - 17.0 ng/ml LAB CHEMISTRY METHOD 04/09/2024 10:41 AM EST [facility] Blood Venous blood specimen / Unknown Venipuncture / Unknown 04/09/2024 8:26 AM EST 04/09/2024 8:26 AM EST us Shantell Cosby MD LAB BLOOD ORDERABLES Final Resul t Performing Organization Address City/[facility]/ZIP Co de Phone Number [facility] [address] [place] [address], [place] [phone] * Cyclic citrullinated peptide, IgG and IgA (04/09/2024 8:26 AM EST) [facility] CCP AB Quant 17 <20 Units LAB CHEMISTRY METHOD 04/13/2024 10:20 AM EST [facility] Cyclic Citrullinated Peptide (CCP) Antibody Negative Negative LAB CHEMISTRY METHOD 04/13/2024 10:20 AM EST [facility] Blood Venous blood specimen / Unknown Venipuncture / Unknown 04/09/2024 8:26 AM EST 04/09/2024 8:26 AM EST us Shantell Cosby MD LAB BLOOD ORDERABLES Final Resul t Performing Organization Address [facility] de Phone Number [facility] [address] [place] [address], [place] [phone] * STANLEY IFA with titer and pattern (04/09/2024 8:26 AM EST) Pathologist [facility] STANLEY Negative Negative 04/12/2024 1:08 PM EST [facility] Blood Venous blood specimen / Unknown Venipuncture / Unknown 04/09/2024 8:26 AM EST 04/09/2024 8:26 AM EST us Shantell Cosby MD LAB BLOOD ORDERABLES Final Resul t Performing Organization Address City/[facility]/ZIP Co de Phone Number [facility] [address] [place] [address], * (ABNORMAL) CBC auto differential (04/09/2024 8:26 AM EST) [facility] Signature WBC 4.3(L) 4.8 - 10.8 K/mcL LAB HEMETOLOGY METHOD 04/09/2024 10:04 AM [facility] RBC 4.20 3.80 - 4.80 M/mcL LAB HEMETOLOGY METHOD 04/09/2024 10:04 AM [facility] Hemoglobin 10.3(L) 11.5 - 16.0 g/dL LAB HEMETOLOGY METHOD 04/09/2024 10:04 AM [facility] Hematocrit 33.6(L) 35.0 - 47.0 % LAB HEMETOLOGY METHOD 04/09/2024 10:04 AM [facility] MCV 79.4 79.0 - 98.0 FL LAB HEMETOLOGY METHOD 04/09/2024 10:04 AM [facility] MCH 24.3(L) 27.0 - 32.0 pcg LAB HEMETOLOGY METHOD 04/09/2024 10:04 AM [facility] MCHC 30.7(L) 32.0 - 37.0 g/dL LAB HEMETOLOGY METHOD 04/09/2024 10:04 AM [facility] RDW 15.9(H) 11.0 - 15.0 % LAB HEMETOLOGY METHOD 04/09/2024 10:04 AM [facility] Platelets 259 130 - 400 K/mcL LAB HEMETOLOGY METHOD 04/09/2024 10:04 AM [facility] MPV 10.8 7.0 - 11.0 FL LAB HEMETOLOGY METHOD 04/09/2024 10:04 AM [facility] NRBC 0.0 <1.0 % LAB HEMETOLOGY METHOD 04/09/2024 10:04 AM [facility] NRBC Absolute 0.00 <0.10 K/mcL LAB HEMETOLOGY METHOD 04/09/2024 10:04 AM [facility] Neutrophils Relative 53.6 % LAB HEMETOLOGY METHOD 04/09/2024 10:04 AM [facility] Lymphocytes Relative 38.1 % LAB HEMETOLOGY METHOD 04/09/2024 10:04 AM [facility] Monocytes Relative 6.7 % LAB HEMETOLOGY METHOD 04/09/2024 10:04 AM [facility] Eosinophils Relative 0.7 % LAB HEMETOLOGY METHOD 04/09/2024 10:04 AM [facility] Basophils Relative 0.7 % LAB HEMETOLOGY METHOD 04/09/2024 10:04 AM [facility] Immature Granulocytes Relative 0.2 % LAB HEMETOLOGY METHOD 04/09/2024 10:04 AM [facility] Neutrophils Absolute 2.31 1.50 - 7.00 K/mcL LAB HEMETOLOGY METHOD 04/09/2024 10:04 AM [facility] Lymphocytes Absolute 1.64 1.00 - 5.00 K/mcL LAB HEMETOLOGY METHOD 04/09/2024 10:04 AM [facility] Monocytes Absolute 0.29 0.20 - 1.00 K/mcL LAB HEMETOLOGY METHOD 04/09/2024 10:04 AM [facility] Eosinophils Absolute 0.03 0.00 - 0.50 K/mcL LAB HEMETOLOGY METHOD 04/09/2024 10:04 AM [facility] Basophils Absolute 0.03 0.00 - 0.20 K/mcL LAB HEMETOLOGY METHOD 04/09/2024 10:04 AM [facility] Immature Granulocytes Absolute 0.01 0.00 - 0.03 K/mcL LAB HEMETOLOGY METHOD 04/09/2024 10:04 AM EST [facility] Blood Venous blood specimen / Unknown Venipuncture / Unknown 04/09/2024 8:26 AM EST 04/09/2024 8:26 AM EST Shantell Cosby MD LAB BLOOD ORDERABLES Final Resul t Performing Organization Address City/[facility]/ZIP Co de Phone Number [facility] [address] [place] [address], [place] [phone] * (ABNORMAL) Iron and TIBC (04/09/2024 8:26 AM EST) Iron 44 40 - 150 mcg/dL LAB CHEMISTRY METHOD 04/09/2024 10:18 AM EST [facility] TIBC 363 250 - 450 mcg/dL LAB CHEMISTRY METHOD 04/09/2024 10:18 AM EST [facility] Iron Saturation 12(L) 15 - 50 % LAB CHEMISTRY METHOD 04/09/2024 10:18 AM EST [facility] Blood Venous blood specimen / Unknown Venipuncture / Unknown 04/09/2024 8:26 AM EST 04/09/2024 8:26 AM EST Shantell Cosby MD LAB BLOOD ORDERABLES Final Resul t Performing Organization Address [facility]/ZIP Co de Phone Number [facility] [address] [place] [address], [place] [phone] * (ABNORMAL) Vitamin D 25 hydroxy (04/09/2024 8:26 AM EST) Vit D, 25-Hydroxy 17.9(L) 30.0 - 80.0 ng/mL LAB CHEMISTRY METHOD 04/09/2024 10:26 AM EST [facility] Blood Venous blood specimen / Unknown Venipuncture / Unknown 04/09/2024 8:26 AM EST 04/09/2024 8:26 AM EST us Shantell Cosby MD LAB BLOOD ORDERABLES Final Resul t Performing Organization Address City/[facility]/ZIP Co de Phone Number [facility] [address] [place] [address], [place] [phone] * Sedimentation rate (04/09/2024 8:26 AM EST) Sed Rate 5 0 - 20 mm/hr LAB HEMETOLOGY METHOD 04/09/2024 10:11 AM EST [facility] Blood Venous blood specimen / Unknown Venipuncture / Unknown 04/09/2024 8:26 AM EST 04/09/2024 8:26 AM EST us Shantell Cosby MD LAB BLOOD ORDERABLES Final Resul t Performing Organization Address [facility] Co de Phone Number [facility] [address] [place] [address], [place] [phone] * Rheumatoid factor (04/09/2024 8:26 AM EST) Rheumatoid Factor <10.0 <15.0 I Unit/mL LAB CHEMISTRY METHOD 04/09/2024 10:41 AM EST [facility] Blood Venous blood specimen / Unknown Venipuncture / Unknown 04/09/2024 8:26 AM EST 04/09/2024 8:26 AM EST us Shantell Cosby MD LAB BLOOD ORDERABLES Final Resul t Performing Organization Address City/[facility]/ZIP Co de Phone Number [facility] [address] [place] [address], [place] [phone] * C-reactive protein (04/09/2024 8:26 AM EST) C-Reactive Protein <0.29 <=0.50 mg/dL LAB CHEMISTRY METHOD 04/09/2024 10:18 AM EST [facility] Blood Venous blood specimen / Unknown Venipuncture / Unknown 04/09/2024 8:26 AM EST 04/09/2024 8:26 AM EST Shantell Cosby MD LAB BLOOD ORDERABLES Final Resul t Performing Organization Address City/[facility]/ZIP Co de Phone Number [facility] [address] [place] [address], [place] [phone] * (ABNORMAL) Ferritin (04/09/2024 8:26 AM EST) Pathologist [facility] Ferritin 6(L) 8 - 252 ng/mL LAB CHEMISTRY METHOD 04/09/2024 10:49 AM [facility] Blood Venous blood specimen / Unknown Venipuncture / Unknown 04/09/2024 8:26 AM EST 04/09/2024 8:26 AM EST Shantell Cosby MD LAB BLOOD ORDERABLES Final Resul t Performing Organization Address [facility]/ZIP Co de Phone Number [facility] [address] [place] [address], [place] [phone] * (ABNORMAL) Comprehensive metabolic panel (04/09/2024 8:26 AM EST) [facility] Sodium 137 133 - 145 mmol/L LAB CHEMISTRY METHOD 04/09/2024 10:49 AM [facility] Potassium 4.4 3.5 - 5.5 mmol/L LAB CHEMISTRY METHOD 04/09/2024 10:49 AM [facility] Chloride 109 96 - 110 mmol/L LAB CHEMISTRY METHOD 04/09/2024 10:49 AM [facility] CO2 24 21 - 32 mmol/L LAB CHEMISTRY METHOD 04/09/2024 10:49 AM [facility] Anion Gap 4 3 - 11 LAB CHEMISTRY METHOD 04/09/2024 10:49 AM [facility] Glucose 75 70 - 100 mg/dL LAB CHEMISTRY METHOD 04/09/2024 10:49 AM [facility] BUN 8 5 - 25 mg/dL LAB CHEMISTRY METHOD 04/09/2024 10:49 AM [facility] Creatinine 0.62 0.50 - 1.10 mg/dL LAB CHEMISTRY METHOD 04/09/2024 10:49 AM [facility] eGFR 122 >=60 mL/min/1. 73m2 LAB CHEMISTRY METHOD 04/09/2024 10:49 AM [facility] Comment:Calculation based on the??Chronic Kidney Disease Epidemiology Collaboration (CKD-EPI) equation refit??without adjustment for race. BUN/Creatinine Ratio 12.9 LAB CHEMISTRY METHOD 04/09/2024 10:49 AM [facility] Calcium 8.6 8.5 - 10.5 mg/dL LAB CHEMISTRY METHOD 04/09/2024 10:49 AM [facility] AST (SGOT) 9(L) 10 - 42 unit/L LAB CHEMISTRY METHOD 04/09/2024 10:49 AM [facility] ALT (SGPT) 14 10 - 60 unit/L LAB CHEMISTRY METHOD 04/09/2024 10:49 AM [facility] Alkaline Phosphatase 41(L) 42 - 121 unit/L LAB CHEMISTRY METHOD 04/09/2024 10:49 AM [facility] Total Protein 6.9 6.0 - 8.0 g/dL LAB CHEMISTRY METHOD 04/09/2024 10:49 AM [facility] Albumin 4.0 3.2 - 5.0 g/dL LAB CHEMISTRY METHOD 04/09/2024 10:49 AM [facility] Total Bilirubin 0.7 0.0 - 1.4 mg/dL LAB CHEMISTRY METHOD 04/09/2024 10:49 AM [facility] Blood Venous blood specimen / Unknown Venipuncture / Unknown 04/09/2024 8:26 AM EST 04/09/2024 8:26 AM EST Shantell Cosby MD LAB BLOOD ORDERABLES Final Resul t [facility] ([facility]) [facility] [address] [place] [address], [place] [phone] * CT Abdomen Pelvis wo and w Contrast (03/12/2024 10:34 AM EST) Anatomical Region Laterality Modality Body Computed Tomogra phy Historical Provider IMG CT PROCEDURES Final R esult * Depression Screening (03/28/2023) Depression Screening abstracted Historical Provider HEALTH MAINTENANCE Final Result * Pap Smear (11/12/2022) Pap smear no interpretation , abstracted Historical Provider HEALTH MAINTENANCE Final Result * (ABNORMAL) Lipid panel (11/07/2022) LDL/HDL Ratio 3 0 - 4 Triglycerides 65 0 - 150 mg/dL Cholesterol 144(A) >=200 mg/dL HDL 50 >=40 mg/dL LDL Cholesterol 81 0 - 100 mg/dL Blood Venous blood specimen / Unknown Historical Provider LAB BLOOD ORDERABLES Belinda l Result from Last 3 Months or Most Recently Relevant to Health Maintenance Insurance MEDICAID - [place] Care Teams Offender Employment Specialist Relationship Specialty Start Date End Date Shantell Cosby MD [address] [place] [id number] PCP - General Internal Medicine 01/09/24
--- OUTSIDE RECORDS SUMMARY | 2024-06-07 14:54 | XMS_ITS | Encounter Summary ---
Author Organization [facility] Address [address] [place] [phone] Phone Care Team Providers Care Conche Operator Name Role Phone Magdalena Hernandez NP Primary Care Provider Jose denise Encounter Details Date Type Department Care Team (Late st Contact Info) Description 11/12/2011 Documentation [facility] Family Medicine [address] [place] [address] Family Medicine, Physician [address] [place], [place] [id number] Social History Tobacco Use Types Packs/Day Years Used Date Smoking Tobacco: Never Assessed Comments Unknown Sex and Gender Information Value Date Recorded Sex Assigned at Not on file Legal Sex Female 4:51 PM EDT Gender Identity Not on file Sexual Orientation Not on file documented as of this encounter Plan of Treatment Not on file documented as of this encounter Visit Diagnoses Not on filedocumented in this encounter Care Teams Conche Operator Relationship Specialty Start Date End Date Magdalena Hernandez NP PCP - General 10/11/16 documented as of this encounter
--- OUTSIDE RECORDS SUMMARY | 2024-06-07 14:54 | XMS_ITS | Encounter Summary ---
Author Organization [facility] Address [address] [place] [address] Care Team Providers Care Disability Insurance Claim Examiner Name Role Phone Pcp, No Primary Care Provider Unavailabl e Encounter Details Date Type Department Care Team (Late st Contact Info) Description 02/09/2024 Scanned Document [address] [place] [address] Primary Care, Scan Social History Tobacco Use Types Packs/Day Years Used Date Smoking Tobacco: Never Assessed Sex and Gender Information Value Date Recorded Sex Assigned at Female 02/09/2024 3:19 PM EST Gender Identity Female 02/09/2024 3:19 PM EST Sexual Orientation Choose not to disclose 2023 3:17 PM EST documented as of this encounter Plan of Treatment Not on file documented as of this encounter Procedures Procedure Name Priority Date/Time Associated Diagnosis Comments HX OUTSIDE ORDER 02/10/2024 HX OUTSIDE ORDER 02/10/2024 HX OUTSIDE ORDER 02/09/2024 documented in this encounter Results * OUTSIDE ORDER (02/10/2024) Scan Primary Care HX AMB PROCEDURES * OUTSIDE ORDER (02/10/2024) Scan Primary Care HX AMB PROCEDURES * OUTSIDE ORDER (02/09/2024) Scan Primary Care HX AMB PROCEDURES documented in this encounter Visit Diagnoses Not on filedocumented in this encounter Care Teams Disability Insurance Claim Examiner Relationship Specialty Start Date End Date Pcp, Deb PCP - General General Medicine 02/09/24 documented as of this encounter
--- OUTSIDE RECORDS SUMMARY | 2024-06-07 14:54 | XMS_ITS | Encounter Summary ---
Author Organization [facility] Address [address] [place] [address] Care Team Providers Care Society Reporter Name Role Phone Wesley Spaulding Primary Care Provider [phone] Encounter Details Date Type Department Care Team (Late st Contact Info) Description 01/19/2020 Telephone [facility] Neurodiagnostics [address] [place] [address] Dena William MD [address] [place] [address] Social History Tobacco Use Types Packs/Day Years Used Date Smoking Tobacco: Every Day Cigarettes Smokeless Tobacco: Never Comments:7 cigarettes per da y Alcohol Use Standard Drinks/Week Comments Not Currently 0 (1 standard drink = 0.6 oz pur e alcohol) Comments No Sex and Gender Information Value Date Recorded Sex Assigned at Not on file Legal Sex Female 3:35 AM EDT Gender Identity Not on file Sexual Orientation Not on file documented as of this encounter Plan of Treatment Not on file documented as of this encounter Visit Diagnoses Not on filedocumented in this encounter Care Teams Society Reporter Relationship Specialty Start Date End Date Wesley Spaulding [address] [place] [address] PCP - General Internal Medicine 12/23/18 documented as of this encounter
--- OUTSIDE RECORDS SUMMARY | 2024-06-07 14:54 | XMS_ITS | Clinical Summary ---
Author Organization [facility] Address [address] [place] [address] Care Team Providers Care Head Athletic Trainer/Strength Coach Name Role Phone Pcp, No Primary Care Provider Unavailabl e Social History Tobacco Use Types Packs/Day Years Used Date Smoking Tobacco: Never Assessed Sex and Gender Information Value Date Recorded Sex Assigned at Female 02/09/2024 3:19 PM EST Gender Identity Female 02/09/2024 3:19 PM EST Sexual Orientation Choose not to disclose 2023 3:17 PM EST Plan of Treatment Health Maintenance Due Date Last Done Comments Hepatitis C Virus Screening 1993 HIV Screening 2006 DTaP/Tdap/Td Vaccines (1 - Tdap) 2012 Hepatitis B Vaccines (1 of 3 - 19+ 3-dose series) 2012 Pap Smear (Ages 21-65) 2014 Influenza Vaccine 10/02/2023 11/29/2020, , 11/02/2011, Additional history exists COVID-19 Vaccine ( season) 2023 12/24/2021 HPV Vaccines Aged Out No longer eligi ble based on patient's age to complete this topic Pneumococcal Vaccine: Pediatric (0-5 Years) and At-Risk Patients (6 to 49 Years) Aged Out No longer eligible based on patient's age to complete this topic Care Teams Head Athletic Trainer/Strength Coach Relationship Specialty Start Date End Date Pcp, No PCP - General General Medicine 02/09/24
--- OUTSIDE RECORDS SUMMARY | 2024-06-07 14:54 | XMS_ITS | Encounter Summary ---
Author Organization [facility] Address [address] [place] [phone] Phone Care Team Providers Care Turbine Blade Assembler Name Role Phone Magdalena Hernandez NP Primary Care Provider Jose denise Encounter Details Date Type Department Care Team (Late st Contact Info) Description 01/14/2013 Documentation [facility] [address] [place] [address] Family Medicine, Physician [address] [place], [place] [id number] Social History Tobacco Use Types Packs/Day Years [...] on filedocumented in this encounter Care Teams Turbine Blade Assembler Relationship Specialty Start Date End Date Magdalena Hernandez NP PCP - General 10/11/16 documented as of this encounter
--- OUTSIDE RECORDS SUMMARY | 2024-06-07 14:55 | XMS_ITS | Encounter Summary ---
Author Organization [employer] [facility] Address [address] [facility] [address] [place] [address] Care Team Providers Care Mechanical Engineering Lecturer Name Role Phone Wesley Spaulding MD Primary Care Provider [phone] Encounter Details Date Type Department Care Team (Late st Contact Info) Description 12/04/2022 Abstract [facility] MEDICINE [address] [place] [address] Romy Calderon Social History Tobacco Use Types Packs/Day Years Used Date Smoking Tobacco: Former Cigarettes 0.5 12 2 2022 Smokeless Tobacco: Never Comments Unknown Sex and Gender Information Value Date Recorded Sex Assigned at Female 12/31/2021 10:30 AM EDT Legal Sex Female 10:30 AM EDT Gender Identity Female 12/31/2021 10:30 AM EDT Sexual Orientation Straight 12/31/2021 10 :30 AM EDT documented as of this encounter Plan of Treatment Not on file documented as of this encounter Procedures Procedure Name Priority Date/Time Associated Diagnosis Comments PAP/HPV Routine 11/12/2022 documented in this encounter Results * (ABNORMAL) Pap Smear (11/12/2022) Pap Epithelial cell abnormality(A ) Negative for intraephithelial lesion or malignancy, Other Comment:ASCUS HPV Undetected us Historical Provider HEALTH MAINTENANCE Edited Result - Final documented in this encounter Visit Diagnoses Not on filedocumented in this encounter Care Teams Mechanical Engineering Lecturer Relationship Specialty Start Date End Date Wesley Spaulding MD [address] [place], [place] [phone] PCP - General Internal Medicine 10/26/18 06/08/23 documented as of this encounter
--- OUTSIDE RECORDS SUMMARY | 2024-06-07 14:55 | XMS_ITS | Encounter Summary ---
Author Organization [facility] Address [address] [place] [phone] Phone Care Team Providers Care Inspector Technician Name Role Phone Magdalena Hernandez NP Primary Care Provider Jose denise Encounter Details Date Type Department Care Team (Late st Contact Info) Description 07/21/2009 Documentation [facility] [place] Family Medicine [address] [place] [address] Family Medicine, Physician [address] [place], [place] [phone] Social History Tobacco Use Types Packs/Day Years [...] on filedocumented in this encounter Care Teams Inspector Technician Relationship Specialty Start Date End Date Magdalena Hernandez NP PCP - General 10/11/16 documented as of this encounter
--- OUTSIDE RECORDS SUMMARY | 2024-06-07 14:55 | XMS_ITS | Referral Summary ---
Author Organization [facility] Address [address] [place] [address] Care Team Providers Care Pay Station Collector Name Role Phone Wesley Spaulding Primary Care Provider + [phone] Allergies Active Allergy Reactions Criticality Noted Date Comments Apple Swelling High 10/12/2020 Mouth and throught swell and tingle. [place] Angioedema High 08/25/2020 Olive Angioedema High 08/25/2020 Medications calcium carbonate (CALCIUM 500 ORAL) Take by mouth. Activ e cyanocobalamin (VITAMIN B12) 100 mcg tablet Take 3,000 mcg by mouth once a day. Active ascorbic acid (VITAMIN C) 500 mg tablet Take 500 mg by mouth once a day. Active gabapentin (NEURONTIN) 100 mg capsuleIndication s:Lumbosacral radiculopathy Take gabapentin 200 mg every morning 180 capsule 3 11/18/19 20 Active Additional Information Patient taking differently: 300 mg 2 times daily, (No instructions reported), Informant: Self, Reported on 08/01/2020 cyclobenzaprine (FLEXERIL) 10 mg tablet Take 1 tablet (10 mg total) by mouth 3 times a day as needed for muscle spasms. 90 tablet 08/26/19 21 Active senna (SENOKOT) 8.6 mg tablet Take 1 tablet (8.6 mg total) by mouth daily as needed for constipation. 30 tablet 08/26/19 21 Active docusate sodium (COLACE) 100 mg capsule Take 1 capsule (100 mg total) by mouth 2 times a day as needed for constipation for up to 14 days. 28 capsule 08/26/19 21 Active Hospital, Clinic, or Other Facility Administered Medication Ordered Dose Route Frequency Start Date End Date Status bisacodyL (DULCOLAX) suppository 10 mg 10 mg rectal Once 09/01/2020 Active Active Problems Problem Noted Date Diagnosed Date Foreign body of buttock 06/29/2021 Displacement of lumbar inter vertebral disc without myelopathy 08/25/2020 Right leg numbness 08/20/2019 Right sacral radiculopathy 08/20/2019 Difficult intubation 02/12/2018 Overview (03/29/2020): Grade View Grade III; Insertion Attempts 3 or more; Placement Verification Auscultation, Symmetrical chest wall movement, Capnometry; Comments 2 attempts with MAC 3, grade 3 view both times. Used a bougie - however esophageal. 3rd attempt with stylet and still a grade 3 view however able to intubate. Lumbar radiculopathy Social History Tobacco Use Types Packs/Day Years Used Date Smoking Tobacco: Every Day Cigarettes Started: 2010 Smokeless Tobacco: Never Comments:2-3 a few days per week Alcohol Use Standard Drinks/Week Comments Yes 0 (1 standard drink = 0.6 oz pur e alcohol) socially Comments No Sex and Gender Information Value Date Recorded Sex Assigned at Not on file Legal Sex Female 3:35 AM EDT Gender Identity Not on file Sexual Orientation Not on file Last Filed Vital Signs Vital Sign Reading Time Taken Comments Blood Pressure 112/68 04/05/2021 4:35 PM EST Pulse 98 04/05/2021 4:35 PM EST Temperature 36.7 ??C (98.1 ??F) 12/07/2020 11:09 AM E DT Respiratory Rate 19 04/05/2021 4:35 PM EST Oxygen Saturation 97% 08/25/2020 12:15 PM EDT Inhaled Oxygen Concentration - - Weight 70.3 kg (155 lb) 12/07/2020 11:09 AM EDT Height 162.6 cm (5' 4 ) 08/01/2020 9:50 AM EDT Body Mass Index 26.61 08/01/2020 9:50 AM EDT Plan of Treatment Not on file Insurance [facility] Advance Directives * Full Code (Latest Code Status on File) Date Activated Date Inactivated Comments 08/25/2020 6:06 AM 08/25/2020 3:57 PM * Full Code Date Activated Date Inactivated Comments 08/11/2020 6:42 AM 08/11/2020 11:17 AM * Full Code Date Activated Date Inactivated Comments 02/12/2019 10:11 AM 02/12/2019 9:12 PM Care Teams Pay Station Collector Relationship Specialty Start Date End Date Wesley Spaulding [address] [place] [id number] PCP - General Internal Medicine 12/23/18
--- OUTSIDE RECORDS SUMMARY | 2024-06-07 14:55 | XMS_ITS | Encounter Summary ---
Author Organization [employer] Address [address] [place] [address] [address] [place] [address] Care Team Providers Care Travelift Operator Name Role Phone Unavailable Primary Care Provider Unavailabl e Reason for Visit * Reason Comments Med Refill Encounter Details Date Type Department Care Team ([facility] st Contact Info) Description 03/04/2024 Refill [facility] [address] [place] [address] Wesley Spaulding MD [address] [place] [address] Social History Tobacco Use Types Packs/Day Years Used Date Smoking Tobacco: Former Cigarettes 0.5 12 2 011 - 2022 Smokeless Tobacco: Never Comments Unknown Sex [...]
--- OUTSIDE RECORDS SUMMARY | 2024-06-07 14:55 | XMS_ITS | Data Portability ---
Author Organization [facility], [address] Address [address] [place] [address] Assessment No assessment recorded. Plan of Treatment Reminders Order Date Submit Date Provider Last Modified By Organization Details Last Modified Time Details Appointments None recorded. Lab rapid flu (A+B) 2022 023 [email or web address] [facility], [address] [place] [address], [id number], 3 09:13:49 Referral None recorded. Procedures None recorded. Surgeries None recorded. Imaging XR, tibia + fibula, 2 view 2022 023 [facility], [address] [place] [address], [address], 3 10:25:54 Medication Orders cephalexin 500 mg capsule 2022 023 [email or web address] [facility] #[id number], [address] [facility], [place], [address], 3 10:21:31 prednisone 20 mg tablet 2022 023 [facility]48834, [address] [place] [address], [id number], 3 08:39:27 Allergy Relief (fluticason e) 50 mcg/actuati on nasal spray,suspe nsion 2022 023 [facility], [address] [place] [address] [place], [id number], 3 08:39:39 benzonatate 100 mg capsule 2022 023 KAMILA [facility] #01393, [address], [place], [id number], 3 08:39:32 azelastine 0.05 % eye drops 2022 023 absal [facility] #06526, [address], [place], [id number], 3 08:39:27 Patient TargetsNo targets recorded. Patient Instructions Encounter Date Encounter Id Patient Instructions Last Modified By Organization Details Last Modified Time 04/13/2022 [id number] Sinusitis is an infection of the lining of the sinus cavities in your head. Sinusitis often follows a cold. It causes pain and pressure in your head and face. In most cases, sinusitis gets better on its own in 1 to 2 weeks. But some mild symptoms may last for several weeks. Sometimes antibiotics are needed. if you are having problems. It's also a good idea to know your test results and keep a list of the medicines you take. How can you care for yourself at home? Take an vthv-svd-yfzgkfj pain medicine. Avoid Ibuprofen, Aleve and Aspirin if . If the doctor prescribed antibiotics, take them as directed. Do not stop taking them just because you feel better. You need to take the full course of antibiotics. Be careful when taking sdls-out-obvnmry cold or influenza (flu) medicines and Tylenol at the same time. Many of these medicines have acetaminophen, which is Tylenol. Read the labels to make sure that you are not taking more than the recommended dose. Too much acetaminophen (Tylenol) can be harmful. Breathe warm, moist air from a steamy shower, a hot bath, or a sink filled with hot water. Avoid cold, dry air. Using a humidifier in your home may help. Follow the directions for cleaning the machine. Use saline (saltwater) nasal washes. This can help keep your nasal passages open and wash out mucus and bacteria. You can buy saline nose drops at a grocery store or drugstore. Or you can make your own at home by adding 1 teaspoon (5 millilitres) of salt and 1 teaspoon (5 millilitres) of baking soda to 2 cups (500 mL) of distilled water. If you make your own, fill a bulb syringe with the solution, insert the tip into your nostril, and squeeze gently. Blow your nose. Put a hot, wet towel or a warm gel pack on your face 3 or 4 times a day for 5 to 10 minutes each time. Try a decongestant nasal spray like oxymetazoline (Drixoral). Do not use it for more than 3 days in a row. Using it for more than 3 days can make your congestion worse. Not available 04/13/2022 09:13:32 Apply warm, mois t compresses over closed eyes 3-4 times per day for 10-15 minutes at a time. Do not return to work until after using the antibiotic drops for 24 hours. If your symptoms do not improve, worsen at any time, or if intense pain, redness, or burning occurs with use of the eye drops, stop the drops immediately and go to the ER. If you wear contact lenses, do not wear them for 2 days. after symptoms resolved. If you have disposable contacts, discard the pair you were wearing and start with a new pair. If they are not disposable, clean thoroughly before using again. Not available 04/13/2022 09:13:44 Reason for Referral None Reported. Results Created Date Observation Date Name Description Value Unit Range Abnormal Flag Note LastModifiedBy Organization Detail LastModifiedTime 04/13/1904/13/2022 rapid flu (A+B) Unknown Analyte Normal = Negati ve Not Available [facility] [address] [place] [address], [phone], 04/13/2022 08:40:13 04/13/1904/13/2022 rapid flu (A+B) Unknown Analyte negati ve Not Available [facility] [address] [place] [address], [phone], 04/13/2022 08:40:13 04/13/19 23 04/13/2022 rapid flu (A+B) Unknown Analyte Normal = Negati ve Not Available marjorie murillo [address], [address], 04/13/2022 08:40:13 04/13/19 23 04/13/2022 rapid flu (A+B) Unknown Analyte negati ve Not Available marjorie [address], [address], 04/13/2022 08:40:13 05/11/19 23 05/10/2022 XR, tibia + fibul a, 2 view No observ ation record ed. [email or web address] [facility] [address] [place], [address], 05/10/2022 16:15:36 05/17/19 imagi ng/di agnos tic resul t No observ ation record ed. Not Available 2022 15:00:08 Result Notes None recorded. Problems Name Problem SNOMED Code Status Onset Date Resolution Date Notes Provider Name and Address Organization Details Recorded Time Prolapsed lumbar intervertebral disc 139104925 Active 2022 RUSSELL nichols PA - [facility] 3 08:39:02 Nerve injury 21930031 Active 2022 Krissy nichols PA - [facility] 3 08:39:50 Problem Notes None recorded. Procedures Surgical History Date Name Laterality Status Provider Name and Address Organization Details Recorded Time discectomy of spine completed RUSSELL VENTURA - [facility] 04/13/2022 08:40:09 Imaging Results Imaging Date Name Status LastModified by Organiz ation Details LastModified Time 05/10/2022 XR, tibia + fibula, 2 view completed [email or web address] [facility] [address] [place], [address], 05/10/2022 16:15:36 05/16/2022 imaging/diag nostic result completed [email or web address] Information not available 05/16/2022 15:00:08 Procedure Notes None recorded. Medical Equipment None Reported. Allergies No known drug allergies Medications Name Sig Start Date Stop Date Status Note LastModified by Organization Details LastModified Time azelastine 0.05 % eye drops INSTILL 1 DROP INTO AFFECTED EYE(S) BY OPHTHALMI C ROUTE 2 TIMES PER DAY 05/10 completed Not Available Not Available Not Available prednisone 20 mg tablet Take 2 tablets every day by oral route in the morning for 5 days. 05/10 completed Not Available Not Available Not Available benzonatate 100 mg capsule Take 1 capsule 3 times a day by oral route as needed for 7 days. 05/10 completed Not Available Not Available Not Available cephalexin 500 mg capsule Take 1 capsule 3 times a day by oral route for 10 days. 2022 active Not Available Not Available Not Avai lable erythromyci n 5 mg/gram (0.5 %) eye ointment APPLY 1 CM RIBBON INTO THE LOWER CONJUNCTI REGLA SAC(S) IN THE AFFECTED EYE(S) BY OPHTHALMI C ROUTE 3 TIMES PER DAY 05/10 completed Not Available Not Available Not Available polymyxin B sulfate 10,000 unit-trimet hoprim 1 mg/mL eye drops INSTILL 1 DROP INTO AFFECTED EYE(S) BY OPHTHALMI C ROUTE EVERY 6 HOURS 05/10 completed Not Available Not Available Not Available gabapentin active Not Available Not Av ailable Not Available Allergy Relief (fluticason e) 50 mcg/actuati on nasal spray,suspe nsion [place] 1 spray twice a day by intranasa l route as directed for 30 days. 05/10 completed Not Available Not Available Not Available Vitals Date Recorded Body height Body mass index (BMI) Body weight Pain severity - 0-10 verbal numeric rating [Score] - Reported Oxygen saturation Oxygen saturation in Arterial blood by Pulse oximetry Heart rate Respiratory rate Body temperature Systolic blood pressure Diastolic blood pressure Provider Name and Address Organization Details Last Updated DateTime 3 162.56 cm 25.7 kg/m2 32298.8 6 g 7 99 % 99 % 102 /min 18 /min 97.8 [degF] 102 mm[Hg] 65 mm[Hg] RUSSELL W[place]STER [facility] 3 08:41:05 Date Recorded Body height Body mass index (BMI) Body weight Oxygen saturation Oxygen saturation in Arterial blood by Pulse oximetry Heart rate Respiratory rate Body temperature Pain severity - 0-10 verbal numeric rating [Score] - Reported Systolic blood pressure Diastolic blood pressure Provider Name and Address Organization Details Last Updated DateTime 3 162.56 cm 27.5 kg/m2 43466.7 8 g 97 % 97 % 103 /min 20 /min 98.3 [degF] 6 105 mm[Hg] 71 mm[Hg] Krissy Atkins [facility] 3 08:35:19 Social History Question Answer Notes LastModified by Sync[employer] ion Details LastModified Time Tobacco Smoking Status Current Every Day Smoker RUSSELL nichols PA [facility] 04/13/2022 08:39:30 What Is Your Level Of Alcohol Consumption? None Information not available 04/13/2022 Have You Had Direct Contact, Or Contact During Intimacy, With Monkeypox Rash, Scabs, Or Body Fluids From A Person With Monkeypox? No [email or web address] Information not available 05/10/2022 How Much Tobacco Do You Smoke? 0.25 PPD [email or web address] Information not available 04/13/2022 Do You Use Any Illicit Or Recreational Drugs? No [email or web address] Information not available 04/13/2022 Have You Recently Traveled Abroad? No [email or web address] Information not available 04/13/2022 Do You Or Have You Ever Used Any Other Forms Of Tobacco Or Nicotine? No [email or web address] Information not available 04/13/2022 Sex: Unknown Functional Status None recorded. Mental Status None recorded. Family History Relationship Description Onset Age of this Age Resolved Age Notes LastModified by Organization Details LastModified Time Father No current problems or disability Not available 04/13 08:39:09 Mother No current problems or disability [email or web address] Not available 04/13 08:39:09 Medical History No medical history recorded. Gynecological HistoryNo gynecological history recorded. Obstetrics History GPAL:G 0 P 0 0 0 0 Immunizations Vaccine Type Date Status Note Provider Nam e and Address Organization Details Recorded Time Influenza, split virus, quadrivalent, preservative 2 completed Krissy [place] null, PA - [facility] 05/10/2022 08:39:06 Influenza, split virus, quadrivalent, preservative 1 completed Krissy [place] null, PA - [facility] 05/10/2022 08:39:06 Hib, unspecified formulation 4 completed Krissy Wilbert null, PA - [facility] 05/10/2022 08:39:06 Hib, unspecified formulation 4 completed Krissy Wilbert null, PA - [facility] 05/10/2022 08:39:06 HPV9 7 completed Krissy Wilbert null, PA - [facility] 05/10/2022 08:39:06 IPV 9 completed Krissy [place] null, PA - [facility] 05/10/2022 08:39:06 IPV 4 completed Krissy [place] null, PA - [facility] 05/10/2022 08:39:06 IPV 4 completed Krissy Wilbert null, PA - [facility] 05/10/2022 08:39:06 IPV 4 completed Krissy Wilbert null, PA - [facility] 05/10/2022 08:39:06 meningococcal ACWY, unspecified formulation 7 completed Krissy Wilbert null, PA - [facility] 05/10/2022 08:39:06 MMR 9 completed Krissy Wilbert null, PA - [facility] 05/10/2022 08:39:06 MMR 5 completed Krissy Wilbert null, PA - [facility] 05/10/2022 08:39:06 COVID-19, mRNA, LNP-S, PF, 30 mcg/0.3 mL dose 2 completed Krissy [place] null, PA - [facility] 05/10/2022 08:39:06 COVID-19, mRNA, LNP-S, PF, 30 mcg/0.3 mL dose 1 completed Krissy Wilbert null, PA - [facility] 05/10/2022 08:39:06 COVID-19, mRNA, LNP-S, PF, 30 mcg/0.3 mL dose 1 completed Krissy [place] null, PA - [facility] 05/10/2022 08:39:06 COVID-19, mRNA, LNP-S, bivalent, PF, 30 mcg/0.3 mL dose 2 completed Krissy [place] null, PA - [facility] 05/10/2022 08:39:06 Tdap 7 completed Krissy Wilbert null, PA - [facility] 05/10/2022 08:39:06 HPV, unspecified formulation 8 completed Krissy [place] null, PA - [facility] 05/10/2022 08:39:06 HPV, unspecified formulation 7 completed Krissy Wilbert null, PA - [facility] 05/10/2022 08:39:06 Td (adult), 2 Lf tetanus toxoid, preservative free, adsorbed 5 completed Krissy [place] null, PA - [facility] 05/10/2022 08:39:06 Td (adult), 2 Lf tetanus toxoid, preservative free, adsorbed 1 completed Krissy [place] null, PA - [facility] 05/10/2022 08:39:06 Hep B, adolescent or pediatric 4 completed Krissy [place] null, PA - [facility] 05/10/2022 08:39:06 Hep B, adult 4 completed Krissy [place] null, PA - [facility] 05/10/2022 08:39:06 Hep B, adult 4 completed Krissy [place] null, PA - [facility] 05/10/2022 08:39:06 Hep B, adult 3 completed Krissy Wilbert null, PA - [facility] 05/10/2022 08:39:06 Hib (PRP-T) 4 completed Krissy Wilbert null, PA - [facility] 05/10/2022 08:39:06 meningococcal MCV4P 1 completed Krissy Wilbert null, PA - [facility] 05/10/2022 08:39:06 DTaP 9 completed Krissy [place] null, PA - [facility] 05/10/2022 08:39:06 DTaP 4 completed Krissy Wilbert null, PA - [facility] 05/10/2022 08:39:06 DTaP 4 completed Krissy Wilbert null, PA - [facility] 05/10/2022 08:39:06 DTaP 4 completed Krissy [place] null, PA - [facility] 05/10/2022 08:39:06 DTaP 5 completed Krissy Wilbert null, PA - [facility] 05/10/2022 08:39:06 Influenza, split virus, quadrivalent, PF 1 completed Krissy [place] null, PA - [facility] 05/10/2022 08:39:06 Past Encounters Encounter ID Performer Location Encounter Start Date Encounter Closed Date Diagnosis/Indication Diagnosis SNOMED-CT Code Diagnosis ICD10 Code Diagnosis Note [id number] [place] [address] [address] 04/13/2022 08:15:23 04/13/2022 09:18:12 Acute sinusitis 07555952 J01.90 Allergic conjunctivitis of bilateral eyes 3445187129 38192 H10.13 [id number] [facility] [address] [place] [address] 05/10/2022 08:07:23 05/10/2022 10:08:20 Pain in right lower limb 900183329 M79.604 You may take ibuprofen as directed on package. Cellulitis of lower leg 903569535 L03.119 Heat: Apply moist heat to the affected area 3 times a day for 20 minutes at a time. Do not sleep with a heating pad as it may cause skin blum. Acute lymp hadenitis of inguinal lymph nodes [id number] 4624247 L04.3 Call your PCP to schedule a follow up appointmen t within the next 2 weeks. Health Concerns Section Related Observation LastModified by Organization Detai ls LastModified Time None Recorded Concern Status LastModified by Organization Details LastModified Time None Recorded Advance Directives Directive None Recorded Payers Encounter Date Sequence Insurance Name Policy Number Policy Schrader Covered Member ID Schrader Member ID Guarantor Name 04/13/2022 1 [facility] (MEDICAID REPLACEMENT - HMO) AMY Dickinson Jak [id number] Malu Jak 05/10/2022 1 [facility] (MEDICAID REPLACEMENT - HMO) AMY Dickinson Jak [id number] Malu Jak Notes Date Note Type Note Provider Name and Address Organization Details Recorded Time 3 text/html Eye problemsReported bypatient.source of patient informationInformation obtained from patient; Patient arrived at Urgent Care ambulatory; learning styles: auditory Location:bilateral Eye Symptoms:no redness; no discharge of pus from the eyes; no pain in the eyes; no blurred vision;sensitivity to light Severity:mild Onset/Timindays Context:allergies Modifying Factors:nothing gives relief kamila Alleviating factors:artificial tearsNotes:injected bilateral eyes x 1 weeks. using antibiotic drops which patient states not helping.CongestionReported bypatient.Notes:sore throat, nasal congestion with post nasal drip x 1 week. smoker, denies any fever or fever with chills. no SOB or respiratory distress. Davidson Ham NP [address] [place], [address], PA - [facility] 04/13/2022 09:14:44 3 text/html Noticed tender lump on right calf area 5 days ago. Also has painful lump to right groin at the same time. She states she felt a sharp cramp in the leg the night before. She has had silicon injections in her buttock and was told by a previous doctor that the silicone has moved into her lymph nodes.Today she is afebrile. There is no rash, redness, only mild tenderness over the leg lump but more tenderness over the groin lump. There are no red streaks described. There is no swelling distal to the leg lump. JOHN FIERRO MD [address] [facility] [place], [address], PA - [facility] 05/10/2022 11:24:44 OBGyn Episode No OBEpisode recorded.
--- OUTSIDE RECORDS SUMMARY | 2024-06-07 14:55 | XMS_ITS | Encounter Summary ---
Author Organization [facility] Address [address] [place] [address] Phone Care Team Providers Care Communications Editor Name Role Phone Magdalena Hernandez NP Primary Care Provider Jose denise Encounter Details Date Type Department Care Team (Late st Contact Info) Description 01/02/2017 Conversion Encounter [facility] - [address] [address] Social History Tobacco Use Types Packs/Day Years Used Date Smoking Tobacco: Every Day Comments:Current every day s moker Comments Unknown Sex and Gender Information Value Date Recorded Sex Assigned at Not on file Legal Sex Female 4:51 PM EDT Gender Identity Not on file Sexual Orientation Not on file documented as of this encounter Plan of Treatment Not on file documented as of this encounter Visit Diagnoses Not on filedocumented in this encounter Care Teams Communications Editor Relationship Specialty Start Date End Date Magdalena Hernandez NP PCP - General 10/11/16 documented as of this encounter
--- OUTSIDE RECORDS SUMMARY | 2024-06-07 14:55 | XMS_ITS | Encounter Summary ---
Author Organization [facility] Address [address] [place] [address] Phone Care Team Providers Care Machine Cleaner Name Role Phone Magdalena Hernandez NP Primary Care Provider Jose denise Encounter Details Date Type Department Care Team (Late st Contact Info) Description 07/21/2009 Documentation [facility] Family Medicine [address] [place] [address] Family Medicine, Physician [address] [place], [place] [phone] Social History Tobacco Use Types Packs/Day Years [...] on filedocumented in this encounter Care Teams Machine Cleaner Relationship Specialty Start Date End Date Magdalena Hernandez NP PCP - General 10/11/16 documented as of this encounter
--- OUTSIDE RECORDS SUMMARY | 2024-06-07 14:55 | XMS_ITS | Encounter Summary ---
Author Organization [facility] Address [address] [place] [address] [address] [place] [address] Care Team Providers Care Heel Splitter Name Role Phone Wesley Spaulding MD Primary Care Provider [phone] Reason for Visit * Reason Onset Date Comments Med Change Request Med Refill 07/17/2022 Seasonal allergy meds Encounter Details Date Type Department Care Team ([facility] st Contact Info) Description 07/17/2022 Refill [facility] [address] [place], [place] [phone] Wesley Spaulding MD [address] [place] [address] Seasonal allergies Social History Tobacco Use Types Packs/Day Years Used Date Smoking Tobacco: Former Cigarettes 0.5 12 2022 Smokeless Tobacco: Never Comments Unknown Sex and Gender Information Value Date Recorded Sex Assigned at Female 12/31/2021 10:30 AM EDT Legal Sex Female 10:30 AM EDT Gender Identity Female 12/31/2021 10:30 AM EDT Sexual Orientation Straight 12/31/2021 10 :30 AM EDT documented as of this encounter Miscellaneous Notes * Telephone Encounter - Aminah Pike LPN - 07/19/2022 11:18 AM EDT TC placed to pt regarding her seasonal allergy meds (fluticasone and maylin) to inform her theses medications aren't covered by her insurance. Joint Cleaning Machine Operator called pt pharmacy: Maylin ([facility]) cost $13a pack and Fluticasone cost $25 a bottle. documented in this encounter Plan of Treatment Not on file documented as of this encounter Visit Diagnoses Diagnosis Seasonal allergies Allergic rhinitis, cause unspecified documented in this encounter Care Teams Heel Splitter Relationship Specialty Start Date End Date Wesley Spaulding MD [address] [place] [address] PCP - General Internal Medicine 10/26/18 06/08/23 documented as of this encounter
--- OUTSIDE RECORDS SUMMARY | 2024-06-07 14:55 | XMS_ITS | Encounter Summary ---
Author Organization [facility] Address [address] [place] [address] Care Team Providers Care Administrative Nursing Supervisor Name Role Phone Shantell Coughlin MD Primary Care Provider [phone] Reason for Visit * Reason Onset Date Comments Mass 01/20/2024 Encounter Details Date Type Department Care Team (Late st Contact Info) Description 01/20/2024 Nurse Triage Adult Medicine [address] [phone] Shantell Coughlin MD [address] [place] [id number] [place] Social History Tobacco Use Types Packs/Day Years [...] on file documented as of this encounter Progress Notes * Shari Goyal, RN - 01/20/2024 11:58 AM EST Pt states she has a lump on her leg, she refused to answer any triage questions about the lump, stating that the lump is due to our refusal to fill her prescriptions, she states the l;ump is like ablood clot but it is not a blood clot I asked her 3 - 4 times if she could share more informationand if she felt she needed to be seen for this Pt is very upset , stating she wants to know why her medication was refused and wanted dr coughlin to know that due to medication refusal she has developed this lump because she has muscle spasms and this has resulted in a lump Per noted I offered pt an appointment, to discuss this and she declined On 12/29 [facility] reviewed, patient had a recent prescription which was sold on 12/19/2023 for gabapentin 400mg capsule 90 capsules looks like there are 5 refills on this, this has been prescribed by a provider from [place] so we will not be filling this prescription 12/30 Pt states she needed this medication and called her old PCP and they refilled this for pt because she is refusing to fill this . I explained to pt she cannot go back and forth between providers. I advised pt to keep upcoming appt with Dr Coughlin and discuss this. * Paola Schaeffer - 01/20/2024 11:23 AM EST Patient call requires triage: Symptoms patient is presenting: PATIENT HAS A LUMP ON HER LEG DUE. How long has patient had these symptoms?: 1 MONTH For ALL patients calling to schedule any appointment (routine, sick visit, follow up, consult, etc.) in the outpatient setting please ask the following questions: Do you have fever of higher than 101, sore throat with difficulty swallowing or severe shortness ofbreath? no If YES to any of these above symptoms, send a message to triage and do not book. Red dot. If no, an audio or video visit should be booked. Have you had close contact with someone with Coronavirus in the last 14 days? no Have you traveled abroad? no Have you traveled recently to another state outside of [place], [place], [place], [place], [place], [place], [place]? no o If yes, did you quarantine for 14 days or have a negative covid test? no If yes to any of the above, patient is not to be scheduled in office until after 14 day quarantine or negative covid test. If pain or injury related was it due to an accident at work or from a motor vehicle accident? If yes, date of accident/Injury: No If yes, gather 3rd libertarian insurance information Third Republican Information: not applicable PCP: Shantell Coughlin MD Payor: [facility] / Plan: [facility] MEDICAID / Product Type: *No Product type* / documented in this encounter Plan of Treatment Upcoming Encounters Date Type Department Care Team (Late st Contact Info) Description 07/02/2024 8:00 AM EDT Consult General Surgery - [place] [address] [phone] Garcia Fabian MD 175 [facility] [address] [place] [address] 08/04/2024 8:00 AM EDT Office Visit Adult Medicine [address] [phone] Shantell Coughlin MD [address] [place] [address] documented as of this encounter Visit Diagnoses Not on filedocumented in this encounter Care Teams Administrative Nursing Supervisor Relationship Specialty Start Date End Date Shantell Coughlin MD [address] [place] [address] PCP - General Internal Medicine 01/09/24 documented as of this encounter
--- OUTSIDE RECORDS SUMMARY | 2024-06-07 14:55 | XMS_ITS | Encounter Summary ---
Author Organization [employer] Address [address] [place] [address] [address] [place] [address] Care Team Providers Care Help Desk Specialist Name Role Phone Unavailable Primary Care Provider Unavailabl e Reason for Visit * Reason Comments Med Refill Encounter Details Date Type Department Care Team ([facility] st Contact Info) Description 12/26/2023 Refill [facility] CHC MED & PEDS [address] [place] [address] Wesley Spaulding MD [address] [place] [address] Social History Tobacco Use Types Packs/Day Years [...]
--- OUTSIDE RECORDS SUMMARY | 2024-06-07 14:55 | XMS_ITS | Encounter Summary ---
Author Organization [facility] Address [address] [place] [phone] Phone Care Team Providers Care Top Hat Body Maker Name Role Phone Magdalena Hernandez NP Primary Care Provider Jose denise Encounter Details Date Type Department Care Team (Late st Contact Info) Description 09/27/2009 Documentation [facility] Family Medicine [address] [place] [address] Family Medicine, Physician [address] [place], [place] [id number] Social History Tobacco Use Types Packs/Day Years [...] on filedocumented in this encounter Care Teams Top Hat Body Maker Relationship Specialty Start Date End Date Magdalena Hernandez NP PCP - General 10/11/16 documented as of this encounter
--- OUTSIDE RECORDS SUMMARY | 2024-06-07 14:55 | XMS_ITS | Encounter Summary ---
Author Organization [employer] Address [address] [place] [address] [address] [place] [address] Care Team Providers Care Vinyl Cutter Name Role Phone Unavailable Primary Care Provider Unavailabl e Reason for Visit * Reason Comments Med Refill Encounter Details Date Type Department Care Team ([facility] st Contact Info) Description 06/29/2023 Refill [facility] CHC MED & PEDS [address] [place] [address] Wesley Spaulding MD [address] [place] [address] Social History Tobacco Use Types Packs/Day Years [...]
--- OUTSIDE RECORDS SUMMARY | 2024-06-07 14:55 | XMS_ITS | Encounter Summary ---
Author Organization [facility] Address [address] [place] [address] Care Team Providers Care Tent Worker Name Role Phone Wesley Spaulding Primary Care Provider + [phone] Encounter Details Date Type Department Care Team ([facility] st Contact Info) Description 08/22/2020 Orders Only [facility] [address] [place] [address] Isela Martinez MD [address] [place] [phone] Screening for viral disease (Primary Dx) Social History Tobacco Use Types Packs/Day Years [...] as of this encounter Visit Diagnoses Diagnosis Screening for viral disease- Primary Special screening examination for unspecified viral disease documented in this encounter Care Teams Tent Worker Relationship Specialty Start Date End Date Wesley Spaulding [address] [place] [address] PCP - General Internal Medicine 12/23/18 documented as of this encounter
--- OUTSIDE RECORDS SUMMARY | 2024-06-07 14:55 | XMS_ITS | Clinical Summary ---
Author Organization [facility] Address [address] [place] [address] Phone Care Team Providers Care Manufacturing Advisor Name Role Phone Magdalena Hernandez NP Primary Care Provider Jose denise Immunizations Immunization Administration Dates Next Due DTP 09/23/1994, 4,1993,05/25 DTaP 5 03/08/1998 H1N1 02/07/2009 HPV, Quadrivalent 06/16/2007,02/13/2007,11/28/19 07 Hep B, ped/adol 08/31/2012, 4,1993,04/02 Hib (PRP-T) 06/11/1994, 4,1993,05/25 Influenza Split 12/03/2010,01/04/2010 Influenza, injectable, trivalent 11/02/2011,01/01,12/22/2007 MMR 03/08/1998,03/11/1994 Meningococcal Conj (Menactra) MCV4P 11/27/2006 OPV 03/08/1998, 4,1993,05/25 Td (adult) (MBL), 2 Lf tetan us toxoid, PF, adsorbed 06/04/2004 Tdap 11/27/2006 Family History Relation Name Status Comments Brother Alive Brother: Alive and well, Asthma, Asthma Mother Alive Mother: asthma, migraines,cholesterol Other Family history of Seizure disorder, Family history of Elevated cholesterol, Family history of Sudden /IN under age 55, Family history of ADD/ADHD, Family history of Migraines, Family history of Diabetes mellitus, Family history of Asthma Social History Tobacco Use Types Packs/Day Years Used Date Smoking Tobacco: Every Day Comments:Current every day s johan Comments Unknown Sex and Gender Information Value Date Recorded Sex Assigned at Not on file Legal Sex Female 4:51 PM EDT Gender Identity Not on file Sexual Orientation Not on file Last Filed Vital Signs Vital Sign Reading Time Taken Comments Blood Pressure 109/78 05/02/2014 12:00 AM EST Pulse 101 01/03/2014 12:00 AM EST Temperature 37.6 ??C (99.6 ??F) 08/03/2013 12:00 AM E DT Respiratory Rate - - Oxygen Saturation - - Inhaled Oxygen Concentration - - Weight 62 kg (136 lb 9.6 oz) 05/02/2014 12:00 AM EST Height 160 cm (5' 3 ) 05/02/2014 12:00 AM EST Body Mass Index 24.2 05/02/2014 12:00 AM EST Plan of Treatment Health Maintenance Due Date Last Done Comments Varicella Vaccines (1 of 2 - 13+ 2-dose series) 2006 DTaP,Tdap,and Td Vaccines (7 - Td or Tdap) 11/27/2016 11/27/2006, 06/04/2004, 03/08/1998, Additional history exists Influenza Vaccines (#1) 2023 11/02/19 12, 12/03/2010, 01/04/2010, Additional history exists COVID-19 Vaccine ( season) 2023 HIB Vaccines Completed 06/11/1994, 08/31, 1993, Additional history exists IPV Vaccines Completed 03/08/1998, 08/31, 1993, Additional history exists MMR Vaccines Completed 03/08/1998, 03/11/1994 Meningococcal Vaccine Aged Out 11/27/2006 No anuj amanda eligible based on patient's age to complete this topic HPV Vaccines Completed 06/16/2007, 01/31, 11/27/2006 Hepatitis B Vaccines Completed 08/31/2012, 1993, 1993, Additional history exists Hepatitis A Vaccines Aged Out No long er eligible based on patient's age to complete this topic Men B Vaccine Aged Out No longer elig ible based on patient's age to complete this topic Pneumococcal Vaccine Aged Out No long er eligible based on patient's age to complete this topic Procedures * Due to [facility] law, this organization might not be sharing sensitive test results. Procedure Name Priority Date/Time Associated Diagnosis Comments CHLAMYDIA AND GONORRHEA, AMPLIFIED Routine 05/03/2014 2:55 PM EST from Last 3 Months or Most Recently Relevant to Health Maintenance Results * Due to [place] [employer] law, this organization might not be sharing sensitive test results. * Chlamydia and Gonorrhoea, Amplified (05/03/2014 2:55 PM EST) URINE CHLAMYDIA AMP PROBE NEGATIVE [facility] Comment: No Chlamydia Trachomatis RNA detected in this patient's sample REFERENCE VALUE: NEGATIVE URINE GC AMP PROBE NEGATIVE [facility] Comment: No Neisseria Gonorrhoeae RNA detected in this patient's sample REFERENCE VALUE: NEGATIVE NOTE: This test uses mechanical assembly-mediated amplification method to detect rRNA from C.Trachomatis and N.Gonorrhoeae. A negative result does not preclude infection. In the case of a negative urine result, testing of an endocervical(female) or urethral(male) specimen is recommended if there is high clinical suspicion of infection. The performance characteristics of this test have not been evaluated in children. The Aptima Combo2 assay is not intended for the evaluation of suspected sexual abuse or for other medico-legal indications. The ordering provider should assess if the patient had consensual sex without risk of sexual abuse. Consult the [facility] if needed. Contact phone number . Therapeutic failure or success cannot be determined with the Aptima Combo2 assay since nucleic acid may persist following appropriate antimicrobial therapy. The Centers for Disease Control and Prevention (CDC) recommends confirmatory retesting using culture or a different nucleic acid amplification test when positive results occur, if indicated. Testing performed or reported by [facility], a Service of [facility], [address] [place] [address] Sam Guthrie MD, PhD, Home Health L[facility] 05/03/2014 2:55 PM EST Narrative [facility] - 05/03/2014 2:55 PM EST URINE CHLAMYDIA GC AMP PROBE Magdalena Hernandez NP LAB MICROBIOLOGY - GENERAL OR DERABLES Final Result [facility] [address] [place] [address], from Last 3 Months or Most Recently Relevant to Health Maintenance Care Teams Manufacturing Advisor Relationship Specialty Start Date End Date Magdalena Hernandez NP PCP - General 10/11/16
--- OUTSIDE RECORDS SUMMARY | 2024-06-07 14:55 | XMS_ITS | Encounter Summary ---
Author Organization [employer] Address [address] [place] [address] [address] [place] [address] Care Team Providers Care Dog Handler Name Role Phone Unavailable Primary Care Provider Unavailabl e Reason for Visit * Reason Comments Med Refill Encounter Details Date Type Department Care Team ([facility] st Contact Info) Description 04/06/2024 Refill [facility] CH[facility] MED & PEDS [address] [place] [address] Wesley Spaulding MD [address] [place] [address] Social History Tobacco Use Types Packs/Day Years [...]
--- OUTSIDE RECORDS SUMMARY | 2024-06-07 14:55 | XMS_ITS | Clinical Summary ---
Author Organization [facility] Address [address] [place] [address] Care Team Providers Care Power Plant Mechanic Name Role Phone Wesley Spaulding Primary Care Provider + [phone] Allergies Active Allergy Reactions Criticality Noted Date Comments Apple Swelling High 10/12/2020 Mouth and throught swell and tingle. [place] Angioedema High 08/25/2020 [place] Angioedema High 08/25/2020 Medications calcium carbonate (CALCIUM [...] view however able to intubate. Lumbar radiculopathy Family History Medical History Relation Name Comments Alcohol abuse Father Relation Name Status Comments Father Alive Mother Alive Social History Tobacco Use Types Packs/Day Years [...] 08/01/2020 9:50 AM EDT Plan of Treatment Health Maintenance Due Date Last Done Comments Cervical Cancer Screening 1993 HIV Screening 1993 HPV and Pap Smear 1993 Hepatitis C Screening 1993 Pap Smear 1993 Varicella Vaccines (1 of 2 - 13+ 2-dose series) 2006 Pneumococcal Vaccine: Pediat barbie (0-5 Years) and At-Risk Patients (6-50 Years) (1 of 2 - PCV) 2012 COVID-19 Vaccine ( - 2023-2 5 season) 2023 04/16/2021, 08/24/2020, 08/03/2020 Alcohol/Substance Use Screening 03/03/2024 Depression Screening and Follow-Up 03/03/2024 Social Drivers of Health Rafaela ual Screening 03/03/2024 Influenza Vaccine (Season Ended) 2024 11/29/2020, 11/02/2011, 11/02/2011, Additional history exists DTaP,Tdap,and Td Vaccines (8 - Td or Tdap) 11/29/2030 11/29/2020, 11/27/2006, 06/04/2004, Additional history exists RSV Vaccine (60+ years old a nd patients) (1 - 1-dose 75+ series) 2068 Hepatitis B Vaccines Completed 08/31/2012, 1993, 1993, Additional history exists Insurance [facility] [id number] Advance Directives * Full Code (Latest Code Status on File) Date Activated Date Inactivated Comments 08/25/2020 6:06 AM 08/25/2020 3:57 PM * Full Code Date Activated Date Inactivated Comments 08/11/2020 6:42 AM 08/11/2020 11:17 AM * Full Code Date Activated Date Inactivated Comments 02/12/2019 10:11 AM 02/12/2019 9:12 PM Care Teams Power Plant Mechanic Relationship Specialty Start Date End Date Wesley Spaulding [address] [place] [address] PCP - General Internal Medicine 12/23/18
--- OUTSIDE RECORDS SUMMARY | 2024-06-07 14:55 | XMS_ITS | Clinical Summary ---
Author Organization [facility] Address [address] [place] [address] Care Team Providers Care Fabric Inspector Name Role Phone Wesley Spaulding MD Primary Care Provider [phone] Social History Tobacco Use Types Packs/Day Years Used Date Smoking Tobacco: Never Assessed Comments Unknown Sex and Gender Information Value Date Recorded Sex Assigned at Not on file Legal Sex Female 1:05 PM EDT Gender Identity Not on file Sexual Orientation Not on file Plan of Treatment Health Maintenance Due Date Last Done Comments Influenza Vaccine (Season Ended) 2024 11/29/2020, 11/02/2011, 12/03/2010, Additional history exists Hepatitis B Vaccine Completed 08/31/2012, 08/31/2012, 1993, Additional history exists Pneumococcal Vaccine: Pediatrics (0 to 5 Years) and At-Risk Patients (6 to 64 Years) Aged Out No longer eligible based on patient's age to complete this topic Insurance MEDICAID Care Teams Fabric Inspector Relationship Specialty Start Date End Date Wesley Spaulding MD [address] [place] [address] [id number] PCP - General Internal Medicine 08/25/23
--- OUTSIDE RECORDS SUMMARY | 2024-06-07 14:55 | XMS_ITS | Encounter Summary ---
Author Organization [facility] Address [address] [place] [address] Care Team Providers Care Christmas Tree Farmer Name Role Phone Wesley Spaulding Primary Care Provider + [phone] Reason for Visit * Reason Onset Date Comments Results 02/15/2020 Encounter Details Date Type Department Care Team (Late st Contact Info) Description 02/15/2020 Telephone [facility] [address] [place] [phone] Telephone Intake, Staff Results Social History Tobacco Use Types Packs/Day Years Used Date Smoking Tobacco: Former Cigarettes Smokeless Tobacco: Former Comments:7 cigarettes per da y Alcohol Use Standard Drinks/Week Comments Not Currently 0 (1 standard drink = 0.6 oz pur e alcohol) Comments No Sex and Gender Information Value Date Recorded Sex Assigned at Not on file Legal Sex Female 3:35 AM EDT Gender Identity Not on file Sexual Orientation Not on file documented as of this encounter Miscellaneous Notes * Telephone Encounter - Dena William MD - 02/15/2020 6:19 PM EST Spoke with patient and discussed that EMG showed no change. * Telephone Encounter - Julianna Jacobs - 02/15/2020 1:33 PM EST Pt of Dr William Pt would like to know results to EMG. pls call to advice. documented in this encounter Plan of Treatment Not on file documented as of this encounter Visit Diagnoses Not on filedocumented in this encounter Care Teams Christmas Tree Farmer Relationship Specialty Start Date End Date Wesley Spaulding [address] [place] [address] PCP - General Internal Medicine 12/23/18 documented as of this encounter
--- OUTSIDE RECORDS SUMMARY | 2024-06-07 14:55 | XMS_ITS | Clinical Summary ---
Author Organization [employer] Address [address] [facility] [address] [place] [address] Care Team Providers Care Antenna Installer Name Role Phone Unavailable Primary Care Provider Unavailabl e Allergies Active Allergy Reactions Criticality Noted Date Comments Apple Juice Swelling High 10/12/2020 Mouth and throught swell and tingle. [place] Pulp Angioedema High 08/25/2020 Prunus Persica Angioedema High 08/25/2020 Medications acetaminophen (Tylenol) 500 MG tabletIndication s:Chronic midline low back pain with sciatica, sciatica laterality unspecified Take 2 tablets (1,000 mg) by mouth every 8 (eight) hours. 30 tablet 3 Active fexofenadine (Maylin) 180 MG tabletIndication s:Seasonal allergies Take 1 tablet (180 mg) by mouth if needed each day (Allergies). 30 tablet 2 3 Active fluticasone (Flonase Sensimist) 27.5 MCG/SPRAY nasal sprayIndications :Seasonal allergies Administer 1-2 sprays into each nostril in the morning. 10 g 5 3 Active acetaminophen (Tylenol) 500 MG tabletIndication s:Chronic midline low back pain with sciatica, sciatica laterality unspecified TAKE 2 TABLETS BY MOUTH EVERY 8 HOURS IF NEEDED 30 tablet 3 3 Active ibuprofen 800 MG tablet TAKE 1 TABLET BY MOUTH 3 TIMES A DAY WITH FOOD 30 tablet 1 3 Active traZODone (Desyrel) 50 MG tablet TAKE 1-2 TABLETS BY MOUTH EVERY NIGHT AT BEDTIME AFTER A MEAL 60 tablet 3 3 Active baclofen (Lioresal) 10 MG tabletIndication s:Muscle spasm TAKE 1 TABLET BY MOUTH THREE TIMES A DAY 90 tablet 1 3 Active melatonin 5 MG tablet TAKE 1 TABLET BY MOUTH EVERY DAY 30 tablet 3 3 Active gabapentin (Neurontin) 400 MG capsule TAKE 1 CAPSULE BY MOUTH 3 TIMES A DAY 90 capsule 5 4 Active gabapentin (Neurontin) 600 MG tablet TAKE 1 TABLET BY MOUTH AT BEDTIME 30 tablet 5 4 Active loratadine (Claritin) 10 MG tablet TAKE 1 TABLET BY MOUTH EVERY DAY 90 tablet 4 Active Active Problems No known active problems Encounters Date Type Department Care Team Description 04/06/2024 Refill [facility] CHC MED & PEDS [address] [place] [address] Wesley Spauldnig MD from Last 3 Months Social History Tobacco Use Types Packs/Day Years Used Date Smoking Tobacco: Former Cigarettes 0.5 12 2022 Smokeless Tobacco: Never Tobacco Cessation:Counseling Given: No Comments Unknown Sex and Gender Information Value Date Recorded Sex Assigned at Female 12/31/2021 10:30 AM EDT Legal Sex Female 10:30 AM EDT Gender Identity Female 12/31/2021 10:30 AM EDT Sexual Orientation Straight 12/31/2021 10 :30 AM EDT Last Filed Vital Signs Vital Sign Reading Time Taken Comments Blood Pressure 98/60 12/07/2021 12:10 AM EDT Pulse 92 12/07/2021 12:10 AM EDT Temperature - - Respiratory Rate - - Oxygen Saturation - - Inhaled Oxygen Concentration - - Weight 71.3 kg (157 lb 3.2 oz) 12/07/2021 12:10 AM EDT Height 162.6 cm (5' 4 ) 12/07/2021 12:10 AM EDT Body Mass Index 26.98 12/07/2021 12:10 AM EDT Plan of Treatment Health Maintenance Due Date Last Done Comments Depression Screening 1993 HIV Screening 1993 SDOH Screening 1993 Alcohol/Substance Use Screening 2005 Family Planning (PISQ) 2008 Hepatitis C Screening 2011 Tobacco Screening 07/18/2023 07/17/2022 COVID-19 Vaccine ( season) 2023 12/24/2021, 04/16/2021, 08/24/2020, Additional history exists Influenza Vaccine (#1) 2023 , 11/02/2011, 11/02/2011, Additional history exists Cervical Cancer Screening 11/12/2025 HPV/Cotest 11/12/2025 11/12/2022 Pap Smear 11/12/2025 11/12/2022, 11/01, 10/28/2018 DTaP/Tdap/Td Vaccines (8 - Td or Tdap) 11/29/2030 11/29/2020, 11/27/2006, 06/04/2004, Additional history exists Zoster Vaccines (1 of 2) 2043 RSV Patients and Patients Aged 60 years or older (1 - 1-dose 75+ series) 2068 HIB Vaccines Completed 06/11/1994, 08/31, 1993, Additional history exists IPV Vaccines Completed 03/08/1998, 08/1998, 1993, Additional history exists HPV Vaccines Completed 06/16/2007, 06/01, 02/13/2007, Additional history exists Hepatitis B Vaccines Completed 08/31/2012, 08/31/2012, 1993, Additional history exists Meningococcal Vaccine Aged Out 11/29/2020 , 11/27/2006, 11/27/2006 No longer eligible based on patient's age to complete this topic Hepatitis A Vaccines Aged Out No long er eligible based on patient's age to complete this topic Pneumococcal Vaccine: Pediatrics (0 to 5 Years) and At-Risk Patients (6 to 49) Years) Aged Out No longer eligible based on patient's age to complete this topic RSV under 20 months Aged Out No longe r eligible based on patient's age to complete this topic Rotavirus Vaccines Aged Out No longer eligible based on patient's age to complete this topic Procedures Procedure Name Priority Date/Time Associated Diagnosis Comments HM PAP/HPV Routine 11/12/2022 HM PAP/HPV Routine 11/12/2022 from Last 3 Months or Most Recently Relevant to Health Maintenance Results * Hm Pap Smear (11/12/2022) Only the most recent of2 resultswithin the time period is included. us Historical Provider HEALTH MAINTENANCE Final Result from Last 3 Months or Most Recently Relevant to Health Maintenance Insurance [facility]
== END 2024-06-07 12:50 | disposition left against medical advice (07) ==
LOC: HO.ED 12:38
PROVIDERS: Emergency Provider Emergency Medicine; PCP Internal Medicine
DX: R11.10 Vomiting, unspecified (principal)
CPT/HCPCS: 99281

== ENCOUNTER 2024-06-16 11:02 | Emergency (ER) | payer OTHER, SELFPAY ==
[2024-06-16 11:16] VITALS: BP 90/59; PULSE 98; RESP 16; TEMP 36.4; O2SAT 99; BMI 24.7
--- NOTE | 2024-06-16 11:23 | ED_ITS ---
HPI - Abdominal Pain General Chief Complaint: Abdominal Pain Stated Complaint: Misoprostol Pill- Trouble Breathing, Vomiting,Pain Time Seen by Provider: 06/16/24 12:09 Related Data Previous Rx's ?Medication ?Instructions ?Recorded naproxen 500 mg tablet 500 mg PO BID PRN pain #20 tabs 09/13/20 doxycycline monohydrate 100 mg 100 mg PO BID #20 caps 09/25/20 capsule erythromycin 5 mg/gram (0.5 %) eye 0.5 inch ophthalmic (eye) BID 7 10/26/20 ointment days #3.5 grams prednisone 20 mg tablet 60 mg (3 x 20 mg) PO DAILY 4 days 10/26/20 #12 tabs doxycycline hyclate 100 mg tablet 100 mg PO BID 10 days #20 tabs 12/22/20 naproxen 500 mg tablet 500 mg PO BID PRN pain #14 tabs 12/22/20 lorazepam 1 mg tablet 1 mg PO TID PRN anxiety #10 tabs 08/19/21 ondansetron 4 mg disintegrating 4 mg PO Q6H PRN nausea and 08/19/21 tablet vomiting #10 tabs polymyxin B sulfate 10,000 1 drp ophthalmic (eye) Q3H 7 days 04/09/22 unit-trimethoprim 1 mg/mL eye #10 mL drops (Polytrim) Allergies Allergy/AdvReac Type Severity Reaction Status Date / Time peach Allergy Angioedema Verified 06/16/24 11:20 plum Allergy Angioedema Verified 06/16/24 11:20 PMFSH Past Medical History Medical History Lumbar disc herniation with radiculopathy No known health problems Social History Social History Alcohol intake: never Patient Tobacco Use Status: Never used Tobacco Advance Directives: No Advance Directives Information Provided: Yes Physical Exam ED Vital Signs: Vital Signs - 24 hr 06/16/24 11:16 Temperature 97.5 F Pulse Rate 98 Respiratory Rate 16 Blood Pressure 90/59 L Pulse Oximetry 99 Oxygen Delivery Method Room Air BMI result Body Mass Index 24.7 Course Course Course Narrative: This is an RME: Additional HPI, ROS, PE not included below will be deferred to primary provider. RME assessment and note performed by: Jessica Hickman PA-C This is a 80-ftuo-vce-female who presents to the ER with complaints of pelvic pain, nausea, vomiting, vaginal bleeding. Patient was 6 weeks when she took [facility]rost[facility] . She states that afterwards she felt unwell, having contraction like pain, nausea, vomiting or bleeding. She called the hotline number [facility] and will recommended to come to the emergency department for evaluation. Patient with tenderness palpation along the suprapubic region, blood pressure mildly low at 90/59, all other vital signs within normal limits. Patient not forthcoming with details as mother is currently in triage. Will have to defer other previous details with primary provider if warranted. Plan: Labs, ultrasound, further ER evaluation needed. Medical Decision Making Medical Decision Making [facility] Narrative: 29-year-old female 9 days post misoprostol medication she reports this was at 6 weeks. We do not know her beta hCG level from that time outside facility. Paperwork she provided his just discharge instructions there is no clinical data. The patient reports lower abdominal pain daily cramping and passage of clots. She luckily does not have any hemodynamic instability or any significant actionable anemia. Bedside ultrasound detailed below shows thickened endometrium could be blood or retained products of conception. No free fluid was seen. Unfortunately approximately 13:30 I was notified by nursing staff that the patient demanded to leave the hospital. Pain medication and I was notified of this however was in the middle of a procedure and I no analgesics for her but she left before it was finished this procedure was only a total of 15 minutes. Her beta hCG is 1700+ this is concerning given the ultrasound findings and continued pain. We will try to call her to notify her of these findings and make sure that she gets evaluated soon Lab Data 06/16/24 11:43 06/16/24 11:43 Labs: Lab Results 06/16/24 Range/Units 11:43 WBC 6.0 (4.8-10.8) X10*3/uL RBC 4.22 (4.20-5.50) X10*6/uL Hgb 10.5 L (12.0-16.0) g/dl Hct 33.2 L (37.0-47.0) % MCV 78.7 L (80.0-98.0) fL MCH 24.9 L (27.0-33.0) pg MCHC 31.6 (31.0-35.0) g/dl RDW 14.6 (11.0-16.0) % Plt Count 315 (160-400) X10*3/uL MPV 9.6 (9.4-12.3) fL Immature Gran % (Auto) 0.5 H (0.0-0.4) % Neut % (Auto) 81.3 H (45-73) % Lymph % (Auto) 13.5 L (20-40) % [place] % (Auto) 4.2 (2-11) % Eos % (Auto) 0.0 (0-4) % Baso % (Auto) 0.5 (0-2) % Lymph # (Auto) 0.8 L (1.2-4.9) X10*3/uL [place] # (Auto) 0.3 (0.1-1.2) X10*3/uL Eos # (Auto) 0.0 (0.0-0.4) X10*3/uL Baso # (Auto) 0.0 (0.0-0.2) X10*3/uL Abs Immat Gran (auto) 0.03 (0.00-0.03) X10*3/uL Absolute Neuts (auto) 4.9 (2.0-8.3) x10*3/uL Absolute Nucleated RBC 0.000 (0.0-0.012) X10*3/uL Nucleated RBC % (auto) 0.0 (0.0-0.2) /100WBC Sodium 141 (135-145) mmol/L Potassium 4.4 D (3.3-5.1) mmol/L Chloride 110 H (96-108) mmol/L Carbon Dioxide 21 L (22-29) mmol/L Anion Gap 14 (12-20) BUN 8 L (9-16) mg/dL Creatinine 0.73 (0.5-1.4) mg/dL Estim Creat Clear Calc 96.4 Estimated GFR > 60 Random Glucose 81 (60-115) mg/dL Calcium 9.1 (8.4-10.2) mg/dL Magnesium 1.9 (1.6-2.6) mg/dL Total Bilirubin 0.3 (0.0-1.0) mg/dL Direct Bilirubin 0.2 (0.0-0.5) mg/dL AST 30 (5-31) U/L ALT 27 (0-31) U/L Alkaline Phosphatase 66 (39-117) U/L Total Protein 7.4 (6.5-8.0) g/dL Albumin 4.1 (3.5-5.0) g/dL Beta HCG, Quant 1729 mIU/mL Medications Administered Discontinued Medications Generic Name Dose Route Start Last Admin Trade Name Freq PRN Reason Stop Dose Admin Ketorolac Tromethamine 30 mg 06/16/24 12:30 06/16/24 12:43 Ketorolac Tromethamine 30 Mg/Ml Vial IM 06/16/24 12:31 30 mg ONCE ONE Administration Ondansetron HCl 4 mg 06/16/24 12:30 06/16/24 12:43 Ondansetron Odt 4 Mg Tab.Rapdis TRANSLINGU 06/16/24 12:31 4 mg ONCE ONE Administration Discharge Plan Discharge Clinical Impression: Abdominal pain Patient Disposition: Left W/O Completing Treatment Prescriptions: No Action doxycycline monohydrate 100 mg capsule 100 mg PO BID Qty: 20 0RF naproxen 500 mg tablet 500 mg PO BID PRN (Reason: pain) Qty: 20 0RF prednisone 20 mg tablet 60 mg PO DAILY 4 Days Qty: 12 0RF erythromycin 5 mg/gram (0.5 %) ointment 0.5 inch ophthalmic (eye) BID 7 Days Qty: 3.5 0RF lorazepam 1 mg tablet 1 mg PO TID PRN (Reason: anxiety) Qty: 10 0RF ondansetron 4 mg tablet,disintegrating 4 mg PO Q6H PRN (Reason: nausea and vomiting) Qty: 10 0RF polymyxin B sulf-trimethoprim [Polytrim] 10,000 unit- 1 mg/mL drops 1 drp ophthalmic (eye) Q3H 7 Days Qty: 10 0RF Rx Instructions: while awake; do not exceed 6 doses in 24 hours doxycycline hyclate 100 mg tablet 100 mg PO BID 10 Days Qty: 20 0RF naproxen 500 mg tablet 500 mg PO BID PRN (Reason: pain) Qty: 14 0RF
[2024-06-16 12:06] LABS: MANUAL DIFF FLAG NO
[2024-06-16 12:10] LABS: Basophils Percent Auto 0.5 % (0-2); Hematocrit 33.2 % (37.0-47.0); Hemoglobin 10.5 g/dl (12.0-16.0); Imm Gran Abs Auto 0.03 X10*3/uL (0.00-0.03); Imm Gran Pct Auto 0.5 % (0.0-0.4); Lymphocytes Absolute Auto 0.8 X10*3/uL (1.2-4.9); Lymphocytes Percent Auto 13.5 % (20-40); Mean Corpuscular HGB Conc 31.6 g/dl (31.0-35.0); Mean Corpuscular Hemoglobin 24.9 pg (27.0-33.0); Mean Corpuscular Volume 78.7 fL (80.0-98.0); Mean Platelet Volume 9.6 fL (9.4-12.3); Monocytes Absolute Auto 0.3 X10*3/uL (0.1-1.2); Monocytes Percent Auto 4.2 % (2-11); Neutrophils Absolute Auto 4.9 x10*3/uL (2.0-8.3); Neutrophils Percent Auto 81.3 % (45-73); Platelet Count 315 X10*3/uL (160-400); Red Blood Count 4.22 X10*6/uL (4.20-5.50); Red Cell Distribution Width 14.6 % (11.0-16.0)
--- NOTE | 2024-06-16 12:31 | ED.ABDPAIN ---
HPI - Abdominal Pain General Chief Complaint: Abdominal Pain Stated Complaint: Misoprostol Pill- Trouble Breathing, Vomiting,Pain Time Seen by Provider: 06/16/24 12:09 History of Present Illness ED Provider: Alonzo Holman MD HPI narrative: 29-year-old female who has proximally 9 days status post misoprostol she reports this was at 6 weeks gestation [facility] all provided to me verbally from the patient. She had several days of cramping and bleeding after this but she expected this to be completed by now she is still having essentially daily intermittent episodes of severe cramping and passage of clots. She feels dehydrated she has been able to eat and drink. She denies fever. Related Data Previous Rx's ?Medication ?Instructions ?Recorded naproxen 500 mg tablet 500 mg PO BID PRN pain #20 tabs 09/13/20 doxycycline monohydrate 100 mg 100 mg PO BID #20 caps 09/25/20 capsule erythromycin 5 mg/gram (0.5 %) eye 0.5 inch ophthalmic (eye) BID 7 10/26/20 ointment days #3.5 grams prednisone 20 mg tablet 60 mg (3 x 20 mg) PO DAILY 4 days 10/26/20 #12 tabs doxycycline hyclate 100 mg tablet 100 mg PO BID 10 days #20 tabs 12/22/20 naproxen 500 mg tablet 500 mg PO BID PRN pain #14 tabs 12/22/20 lorazepam 1 mg tablet 1 mg PO TID PRN anxiety #10 tabs 08/19/21 ondansetron 4 mg disintegrating 4 mg PO Q6H PRN nausea and 08/19/21 tablet vomiting #10 tabs polymyxin B sulfate 10,000 1 drp ophthalmic (eye) Q3H 7 days 04/09/22 unit-trimethoprim 1 mg/mL eye #10 mL drops (Polytrim) Allergies Allergy/AdvReac Type Severity Reaction Status Date / Time peach Allergy Angioedema Verified 06/16/24 11:20 plum Allergy Angioedema Verified 06/16/24 11:20 PMFSH Past Medical History Medical History Lumbar disc herniation with radiculopathy No known health problems Social History Social History Alcohol intake: never Patient Tobacco Use Status: Never used Tobacco Advance Directives: No Advance Directives Information Provided: Yes Physical Exam ED Vital Signs: Vital Signs - 24 hr 06/16/24 11:16 Temperature 97.5 F Pulse Rate 98 Respiratory Rate 16 Blood Pressure 90/59 L Pulse Oximetry 99 Oxygen Delivery Method Room Air BMI result Body Mass Index 24.7 Const Other: EXAM: Gen: Alert, awake, mildly dehydrated, mild pallor Head: Atraumatic Eyes: Anicteric, Normal conjunctiva. ENT: Moist mucosa, no pallor. ? Neck: Supple. Respiratory: Breathing comfortably, No distress.Clear to auscultation bilaterally, symmetric chest expansion, No wheeze, rales, ronchi. Cardiovascular: Regular rate and rhythm. No murmurs or rub. Well perfused periphery, warm extremities. No edema. ? Abdominal: Soft, no objective distension. No palpable masses or obvious organomegaly. No focal tenderness, no guarding, no rebound tenderness or other peritoneal findings. : No flank tenderness. Neuro: Alert. Gross movement of all extremities intact. ? Vital signs: See flowsheet Medical Decision Making Medical Decision Making MDM Narrative: [age] female in 9 days post misoprostol at 6 weeks . . Still with cramping. Plan for Toradol, antiemetics CBC beta quant and point of care ultrasound. Patient's beta hCG is 1700+. She has no significant actionable anemia or chemistry abnormalities. After my initial evaluation I performed a point of care ultrasound which was limited as her bladder was empty and it was transabdominal but she had a retroverted uterus with an endometrial stripe over 1 cm. No free fluid was seen. Adnexa poorly visualized. Patient had no rigidity or peritoneal signs on abdominal exam and was hemodynamically stable. I had planned for pelvic exam, Radiology comprehensive transvaginal and transabdominal ultrasound but unfortunately the patient left see below Differential diagnosis broad but includes retained products of conception, normal vaginal bleeding after medication , endometritis, ectopic I did call the patient and spoke to her urging her to come back for re-evaluation or at least repeat beta hCG in 48 hours Lab Data 06/16/24 11:43 06/16/24 11:43 Labs: Lab Results 06/16/24 Range/Units 11:43 WBC 6.0 (4.8-10.8) X10*3/uL RBC 4.22 (4.20-5.50) X10*6/uL Hgb 10.5 L (12.0-16.0) g/dl Hct 33.2 L (37.0-47.0) % MCV 78.7 L (80.0-98.0) fL MCH 24.9 L (27.0-33.0) pg MCHC 31.6 (31.0-35.0) g/dl RDW 14.6 (11.0-16.0) % Plt Count 315 (160-400) X10*3/uL MPV 9.6 (9.4-12.3) fL Immature Gran % (Auto) 0.5 H (0.0-0.4) % Neut % (Auto) 81.3 H (45-73) % Lymph % (Auto) 13.5 L (20-40) % [place] % (Auto) 4.2 (2-11) % Eos % (Auto) 0.0 (0-4) % Baso % (Auto) 0.5 (0-2) % Lymph # (Auto) 0.8 L (1.2-4.9) X10*3/uL [place] # (Auto) 0.3 (0.1-1.2) X10*3/uL Eos # (Auto) 0.0 (0.0-0.4) X10*3/uL Baso # (Auto) 0.0 (0.0-0.2) X10*3/uL Abs Immat Gran (auto) 0.03 (0.00-0.03) X10*3/uL Absolute Neuts (auto) 4.9 (2.0-8.3) x10*3/uL Absolute Nucleated RBC 0.000 (0.0-0.012) X10*3/uL Nucleated RBC % (auto) 0.0 (0.0-0.2) /100WBC Sodium 141 (135-145) mmol/L Potassium 4.4 D (3.3-5.1) mmol/L Chloride 110 H (96-108) mmol/L Carbon Dioxide 21 L (22-29) mmol/L Anion Gap 14 (12-20) BUN 8 L (9-16) mg/dL Creatinine 0.73 (0.5-1.4) mg/dL Estim Creat Clear Calc 96.4 Estimated GFR > 60 Random Glucose 81 (60-115) mg/dL Calcium 9.1 (8.4-10.2) mg/dL Magnesium 1.9 (1.6-2.6) mg/dL Total Bilirubin 0.3 (0.0-1.0) mg/dL Direct Bilirubin 0.2 (0.0-0.5) mg/dL AST 30 (5-31) U/L ALT 27 (0-31) U/L Alkaline Phosphatase 66 (39-117) U/L Total Protein 7.4 (6.5-8.0) g/dL Albumin 4.1 (3.5-5.0) g/dL Beta HCG, Quant 1729 mIU/mL Medications Administered Discontinued Medications Generic Name Dose Route Start Last Admin Trade Name Freq PRN Reason Stop Dose Admin Ketorolac Tromethamine 30 mg 06/16/24 12:30 06/16/24 12:43 Ketorolac Tromethamine 30 Mg/Ml Vial IM 06/16/24 12:31 30 mg ONCE ONE Administration Ondansetron HCl 4 mg 06/16/24 12:30 06/16/24 12:43 Ondansetron Odt 4 Mg Tab.Rapdis TRANSLINGU 06/16/24 12:31 4 mg ONCE ONE Administration Discharge Plan Discharge Clinical Impression: Abdominal pain Patient Disposition: Left W/O Completing Treatment Prescriptions: No Action doxycycline monohydrate 100 mg capsule 100 mg PO BID Qty: 20 0RF naproxen 500 mg tablet 500 mg PO BID PRN (Reason: pain) Qty: 20 0RF prednisone 20 mg tablet 60 mg PO DAILY 4 Days Qty: 12 0RF erythromycin 5 mg/gram (0.5 %) ointment 0.5 inch ophthalmic (eye) BID 7 Days Qty: 3.5 0RF lorazepam 1 mg tablet 1 mg PO TID PRN (Reason: anxiety) Qty: 10 0RF ondansetron 4 mg tablet,disintegrating 4 mg PO Q6H PRN (Reason: nausea and vomiting) Qty: 10 0RF polymyxin B sulf-trimethoprim [Polytrim] 10,000 unit- 1 mg/mL drops 1 drp ophthalmic (eye) Q3H 7 Days Qty: 10 0RF Rx Instructions: while awake; do not exceed 6 doses in 24 hours doxycycline hyclate 100 mg tablet 100 mg PO BID 10 Days Qty: 20 0RF naproxen 500 mg tablet 500 mg PO BID PRN (Reason: pain) Qty: 14 0RF Discharge Date/Time: 06/16/24 14:43
[2024-06-16 12:36] LABS: Alanine Aminotransferase 27 U/L (0-31); Albumin Level 4.1 g/dL (3.5-5.0); Alkaline Phosphatase 66 U/L (39-117); Anion Gap 14 (12-20); Aspartate Amino Transferase 30 U/L (5-31); Bilirubin Direct 0.2 mg/dL (0.0-0.5); Bilirubin Total 0.3 mg/dL (0.0-1.0); Blood Urea Nitrogen 8 mg/dL (9-16); Calcium 9.1 mg/dL (8.4-10.2); Carbon Dioxide 21 mmol/L (22-29); Chloride 110 mmol/L (96-108); Creatinine Clr Calc Pharmacy 96.4; Estimated Glomerular Filt Rate > 60; Glucose Random 81 mg/dL (60-115); Magnesium 1.9 mg/dL (1.6-2.6); Potassium 4.4 mmol/L (3.3-5.1); Sodium 141 mmol/L (135-145); Total Protein 7.4 g/dL (6.5-8.0)
[2024-06-16 12:39] LABS: HCG Quantitative 1729 mIU/mL
[2024-06-16] MEDS: Ketorolac Tromethamine 30 MG/ML VIAL IM (12:43)
[2024-06-16] MEDS: Ondansetron ODT 4 MG TAB.RAPDIS TRANSLINGU (12:43)
--- NOTE | 2024-06-16 13:38 | PC.NURSE ---
patient left without completing treatment. brewery technician came to this RN to notify patient yelling No one is helping me get pain meds and im not staying here any longer without them patient attempted to be redirected with only increase agitation and left through triage once doors opened. made aware.
--- OUTSIDE RECORDS SUMMARY | 2024-06-16 14:01 | XMS_ITS | Encounter Summary ---
Author Organization [facility] Address [address] [place] [address] Care Team Providers Care Package Wrapper Name Role Phone Pcp, No Primary Care Provider Unavailabl e Encounter Details Date Type Department Care Team (Late st Contact Info) Description 02/09/2024 Scanned Document [facility] [address] [facility] [address] [place] [address] Primary Care, Scan Social History Tobacco Use Types Packs/Day Years Used Date Smoking Tobacco: Never Assessed Comments Unknown Sex and Gender Information Value Date Recorded Sex Assigned at Female 02/09/2024 3:19 PM EST Legal Sex Female 2:17 PM EST Gender Identity Female 02/09/2024 3:19 [...] this encounter Results * OUTSIDE ORDER (02/10/2024) us Scan Primary Care HX AMB PROCEDURES Final Result * OUTSIDE ORDER (02/10/2024) us Scan Primary Care HX AMB PROCEDURES Final Result * OUTSIDE ORDER (02/09/2024) us Scan Primary Care HX AMB PROCEDURES Final Result documented in this encounter Visit Diagnoses Not on filedocumented in this encounter Care Teams Package Wrapper Relationship Specialty Start Date End Date Pcp, No PCP - General General Medicine 02/09/24 documented as of this encounter
--- OUTSIDE RECORDS SUMMARY | 2024-06-16 14:01 | XMS_ITS | Encounter Summary ---
Author Organization [facility] Address [address] [place] [id number] Phone Care Team Providers Care Wood Heel Fitter Machine Name Role Phone Magdalena Hernandez NP Primary Care Provider Jose denise Encounter Details Date Type Department Care Team (Late st Contact Info) Description 01/14/2013 Documentation [facility] Family Medicine [address] [place] [address] Family Medicine, Physician [address] [place], [place] [phone] Social History Tobacco Use Types Packs/Day Years [...] on filedocumented in this encounter Care Teams Wood Heel Fitter Machine Relationship Specialty Start Date End Date Magdalena Hernandez NP PCP - General 10/11/16 documented as of this encounter
--- OUTSIDE RECORDS SUMMARY | 2024-06-16 14:01 | XMS_ITS | Encounter Summary ---
Author Organization [facility] Address [address] [place] [phone] Phone Care Team Providers Care Security Risk Analyst Name Role Phone Magdalena Hernandez NP Primary Care Provider Jose denies Encounter Details Date Type Department Care Team (Late st Contact Info) Description 11/12/2011 Documentation [facility] Family Medicine [address] [place] [address] Family Medicine, Physician [address] [place], [place] [phone] Social History Tobacco Use Types Packs/Day Years [...] on filedocumented in this encounter Care Teams Security Risk Analyst Relationship Specialty Start Date End Date Magdalena Hernandez NP PCP - General 10/11/16 documented as of this encounter
--- OUTSIDE RECORDS SUMMARY | 2024-06-16 14:01 | XMS_ITS | Clinical Summary ---
Author Organization [facility] Address [address] [place] [address] Care Team Providers Care Area Safety Manager Name Role Phone Wesley Spaulding Primary Care Provider + [phone] Allergies Active Allergy Reactions Criticality Noted Date Comments Apple Swelling High 10/12/2020 Mouth and throught swell and tingle. Gage Angioedema High 08/25/2020 [place]au Angioedema High 08/25/2020 Medications calcium carbonate (CALCIUM [...] 08/31/2012, 1993, 1993, Additional history exists Insurance [facility] [id number] Advance Directives * Full Code (Latest Code Status on File) Date Activated Date Inactivated Comments 08/25/2020 6:06 AM 08/25/2020 3:57 PM * Full Code Date Activated Date Inactivated Comments 08/11/2020 6:42 AM 08/11/2020 11:17 AM * Full Code Date Activated Date Inactivated Comments 02/12/2019 10:11 AM 02/12/2019 9:12 PM Care Teams Area Safety Manager Relationship Specialty Start Date End Date Wesley Spaulding [address] [place] [phone] PCP - General Internal Medicine 12/23/18
--- OUTSIDE RECORDS SUMMARY | 2024-06-16 14:01 | XMS_ITS | Encounter Summary ---
Author Organization [facility] Address [address] [place] [address] Care Team Providers Care Youth Minister Name Role Phone Wesley Spaulding Primary Care Provider [phone] Encounter Details Date Type Department Care Team (Late st Contact Info) Description 01/19/2020 Telephone [facility] Neurodiagnostics [address] [place] [address] Dena William MD [address] [place] [address] Social History Tobacco Use Types Packs/Day Years [...] on filedocumented in this encounter Care Teams Youth Minister Relationship Specialty Start Date End Date Wesley Spaulding [address] [place] [address] PCP - General Internal Medicine 12/23/18 documented as of this encounter
--- OUTSIDE RECORDS SUMMARY | 2024-06-16 14:01 | XMS_ITS | Clinical Summary ---
Author Organization [facility] Address [address] [place] [address] Care Team Providers Care Specialty Cook Name Role Phone Pcp, No Primary Care [...] patient's age to complete this topic Insurance [facility] Care Teams Specialty Cook Relationship Specialty Start Date End Date Pcp, No PCP - General General Medicine 02/09/24
--- OUTSIDE RECORDS SUMMARY | 2024-06-16 14:01 | XMS_ITS | Clinical Summary ---
Author Organization [facility] [address] [place] [address] [place] [phone] Phone Care Team Providers Care Game Room Attendant Name Role Phone Shantell Cosby MD Primary Care Provider [phone] Allergies Active Allergy Reactions Criticality Noted Date Comments Apple Swelling High 10/12/2020 Mouth and throught swell and tingle. Apple Juice Swelling High 10/12/2020 Mouth and throught swell and tingle. Other Itching 11/07/2022 Blanco (Prunus Persica) Angioedema High 08/25/2020 [place] Angioedema High 08/25/2020 Medications traZODone (DESYREL) 50 [...] Care Team Description 05/17/2024 Telephone Adult Medicine [address] [id number] Shantell Cosby MD 04/08/2024 8:30 AM EST Office Visit Adult Medicine [address] [phone] Shantell Cosby MD Joint stiffness of both wrists (Primary Dx); Vitamin D deficiency; Iron deficiency; Neuropathy; Foreign body of buttock, subsequent encounter from Last 3 Months Immunizations Name Administration Dates Next Due DTaP (Infanrix) 6wks to less than 7yo ,09/23/1994,1993,07/11,1993 HPV 9-valent (Gardisil) 9yo to less than 46yo 11/27/2006 HPV, Unspecified 06/16/2007,02/13/2007 Hepatitis B (Maphxjj-I-Bmnph , Recombivax HB-Adult) 19yo and older 08/31/2012,1993,1993 [...] 2019 PROCEDURE: HISTORY OTHER; COMMENT: Lumbar disectomy/ [facility] Medical History Medical History Date Comments Insomnia [...] 8:00 AM EDT Consult General Surgery - [place] [address] [facility] [address] [place] [address] Garcia Fabian MD [address] [facility] [address] [place] [address] 08/04/2024 8:00 AM EDT Office Visit Adult Medicine [facility] [place] [address] [place] [address] Shantell Cosby MD [address] [place] [address] Health Maintenance Due Date Last Done Comments [...] AM EST Joint stiffness of both wrists HM DEPRESSION SCREENING Routine 03/28/2023 HM PAP SMEAR Routine 11/12/2022 LIPID PANEL Routine 11/07/2022 from Last 3 Months or Most Recently Relevant to Health Maintenance Results * Thyroid stimulating hormone with reflex to free t4 and free t3 (04/09/2024 8:26 AM EST) Pathologist [facility] TSH 2.28 0.40 - 4.00 mcIU/mL LAB CHEMISTRY METHOD 04/09/2024 10:27 AM EST [facility] Blood Venous blood specimen / Unknown Venipuncture / Unknown 04/09/2024 8:26 AM EST 04/09/2024 8:26 AM EST us Shantell Cosby MD LAB BLOOD ORDERABLES Final Resul t [facility] [address] [place] [address], * (ABNORMAL) Vitamin B12 and folate (04/09/2024 8:26 AM EST) [facility] Vitamin B-12 295 250 - 900 pcg/mL LAB CHEMISTRY METHOD 04/09/2024 10:41 AM EST [facility] Folate 18.9(H) 2.8 - 17.0 ng/ml LAB CHEMISTRY METHOD 04/09/2024 10:41 AM EST [facility] Blood Venous blood specimen / Unknown Venipuncture / Unknown 04/09/2024 8:26 AM EST 04/09/2024 8:26 AM EST us Shantell Cosby MD LAB BLOOD ORDERABLES Final Resul t Performing Organization Address [facility] Co de Phone Number [facility] [address] [place] [address], [place] [phone] * Cyclic citrullinated peptide, IgG and IgA (04/09/2024 8:26 AM EST) [facility] CCP AB Quant 17 <20 Units LAB CHEMISTRY METHOD 04/13/2024 10:20 AM EST [facility] Cyclic Citrullinated Peptide (CCP) Antibody Negative Negative LAB CHEMISTRY METHOD 04/13/2024 10:20 AM EST [facility] Blood Venous blood specimen / Unknown Venipuncture / Unknown 04/09/2024 8:26 AM EST 04/09/2024 8:26 AM EST us Shantell Cosby MD LAB BLOOD ORDERABLES Final Resul t Performing Organization Address [facility] de Phone Number [facility] [address] [place] [address], [place] [phone] * [place] IFA with titer and pattern (04/09/2024 8:26 AM EST) [facility] STANLEY Negative Negative 04/12/2024 1:08 PM EST [facility] Blood Venous blood specimen / Unknown Venipuncture / Unknown 04/09/2024 8:26 AM EST 04/09/2024 8:26 AM EST us Shantell Cosby MD LAB BLOOD ORDERABLES Final Resul t Performing Organization Address City/[facility] Co de Phone Number [facility] [address] [place] [address], [place] [phone] * (ABNORMAL) CBC auto differential (04/09/2024 8:26 AM EST) [facility] Signature WBC 4.3(L) 4.8 - 10.8 K/mcL LAB HEMETOLOGY METHOD 04/09/2024 10:04 AM [facility] RBC 4.20 3.80 - 4.80 M/mcL LAB HEMETOLOGY METHOD 04/09/2024 10:04 AM [facility] Hemoglobin 10.3(L) 11.5 - 16.0 g/dL LAB HEMETOLOGY METHOD 04/09/2024 10:04 AM [facility] Hematocrit 33.6(L) 35.0 - 47.0 % LAB HEMETOLOGY METHOD 04/09/2024 10:04 AM [facility] MCV 79.4 79.0 - 98.0 FL LAB HEMETOLOGY METHOD 04/09/2024 10:04 AM [facility] MCH 24.3(L) 27.0 - 32.0 pcg LAB HEMETOLOGY METHOD 04/09/2024 10:04 AM [facility] MCHC 30.7(L) 32.0 - 37.0 g/dL LAB HEMETOLOGY METHOD 04/09/2024 10:04 AM [facility] RDW 15.9(H) 11.0 - 15.0 % LAB HEMETOLOGY METHOD 04/09/2024 10:04 AM [facility] Platelets 259 130 - 400 K/mcL LAB HEMETOLOGY METHOD 04/09/2024 10:04 AM [facility] MPV 10.8 7.0 - 11.0 FL LAB HEMETOLOGY METHOD 04/09/2024 10:04 AM [facility] NRBC 0.0 <1.0 % LAB HEMETOLOGY METHOD 04/09/2024 10:04 AM [facility] NRBC Absolute 0.00 <0.10 K/mcL LAB HEMETOLOGY METHOD 04/09/2024 10:04 AM [facility] Neutrophils Relative 53.6 % LAB HEMETOLOGY METHOD 04/09/2024 10:04 AM [facility] Lymphocytes Relative 38.1 % LAB HEMETOLOGY METHOD 04/09/2024 10:04 AM [facility] Monocytes Relative 6.7 % LAB HEMETOLOGY METHOD 04/09/2024 10:04 AM [facility] Eosinophils Relative 0.7 % LAB HEMETOLOGY METHOD 04/09/2024 10:04 AM [facility] Basophils Relative 0.7 % LAB HEMETOLOGY METHOD 04/09/2024 10:04 AM [facility] Immature Granulocytes Relative 0.2 % LAB HEMETOLOGY METHOD 04/09/2024 10:04 AM [facility] Neutrophils Absolute 2.31 1.50 - 7.00 K/mcL LAB HEMETOLOGY METHOD 04/09/2024 10:04 AM [facility] Lymphocytes Absolute 1.64 1.00 - 5.00 K/mcL LAB HEMETOLOGY METHOD 04/09/2024 10:04 AM [facility] Monocytes Absolute 0.29 0.20 - 1.00 K/mcL LAB HEMETOLOGY METHOD 04/09/2024 10:04 AM [facility] Eosinophils Absolute 0.03 0.00 - 0.50 K/mcL LAB HEMETOLOGY METHOD 04/09/2024 10:04 AM [facility] Basophils Absolute 0.03 0.00 - 0.20 K/mcL LAB HEMETOLOGY METHOD 04/09/2024 10:04 AM [facility] Immature Granulocytes Absolute 0.01 0.00 - 0.03 K/mcL LAB HEMETOLOGY METHOD 04/09/2024 10:04 AM [facility] Blood Venous blood specimen / Unknown Venipuncture / Unknown 04/09/2024 8:26 AM EST 04/09/2024 8:26 AM EST us Shantell Cosby MD LAB BLOOD ORDERABLES Final Resul t Performing Organization Address [facility]/ZIP Co de Phone Number [facility] [address] [place] [address], [place] [phone] * (ABNORMAL) Iron and TIBC (04/09/2024 8:26 AM EST) Iron 44 40 - 150 mcg/dL LAB CHEMISTRY METHOD 04/09/2024 10:18 AM EST [facility] TIBC 363 250 - 450 mcg/dL LAB CHEMISTRY METHOD 04/09/2024 10:18 AM EST [facility] Iron Saturation 12(L) 15 - 50 % LAB CHEMISTRY METHOD 04/09/2024 10:18 AM EST [facility] Blood Venous blood specimen / Unknown Venipuncture / Unknown 04/09/2024 8:26 AM EST 04/09/2024 8:26 AM EST us Shantell Cosby MD LAB BLOOD ORDERABLES Final Resul t Performing Organization Address [facility]/ZIP Co de Phone Number [facility] [address] [place] [address], [place] [phone] * (ABNORMAL) Vitamin D 25 hydroxy (04/09/2024 8:26 AM EST) Vit D, 25-Hydroxy 17.9(L) 30.0 - 80.0 ng/mL LAB CHEMISTRY METHOD 04/09/2024 10:26 AM EST [facility] Blood Venous blood specimen / Unknown Venipuncture / Unknown 04/09/2024 8:26 AM EST 04/09/2024 8:26 AM EST us Shantell Cosby MD LAB BLOOD ORDERABLES Final Resul t Performing Organization Address [facility] de Phone Number [facility] [address] [place] [address], * Sedimentation rate (04/09/2024 8:26 AM EST) Sed Rate 5 0 - 20 mm/hr LAB HEMETOLOGY METHOD 04/09/2024 10:11 AM EST [facility] Blood Venous blood specimen / Unknown Venipuncture / Unknown 04/09/2024 8:26 AM EST 04/09/2024 8:26 AM EST Shantell Cosby MD LAB BLOOD ORDERABLES Final Resul t Performing Organization Address [facility] de Phone Number [facility] [address] [place] [address], * Rheumatoid factor (04/09/2024 8:26 AM EST) Pathologist [facility] Rheumatoid Factor <10.0 <15.0 I Unit/mL LAB CHEMISTRY METHOD 04/09/2024 10:41 AM EST [facility] Blood Venous blood specimen / Unknown Venipuncture / Unknown 04/09/2024 8:26 AM EST 04/09/2024 8:26 AM EST Shantell Cosby MD LAB BLOOD ORDERABLES Final Resul t Performing Organization Address [facility] Co de Phone Number [facility] [address] [place] [address], [place] [phone] * C-reactive protein (04/09/2024 8:26 AM EST) C-Reactive Protein <0.29 <=0.50 mg/dL LAB CHEMISTRY METHOD 04/09/2024 10:18 AM EST [facility] Blood Venous blood specimen / Unknown Venipuncture / Unknown 04/09/2024 8:26 AM EST 04/09/2024 8:26 AM EST us Shantell Cosby MD LAB BLOOD ORDERABLES Final Resul t [facility] [address] [place] [address], [place] [phone] * (ABNORMAL) Ferritin (04/09/2024 8:26 AM EST) [facility] Ferritin 6(L) 8 - 252 ng/mL LAB CHEMISTRY METHOD 04/09/2024 10:49 AM [facility] Blood Venous blood specimen / Unknown Venipuncture / Unknown 04/09/2024 8:26 AM EST 04/09/2024 8:26 AM EST us Shantell Cosby MD LAB BLOOD ORDERABLES Final Resul t Performing Organization Address City/[facility]/ZIP Co de Phone Number [facility] [address] [place] [address], [place] [phone] * (ABNORMAL) Comprehensive metabolic panel (04/09/2024 8:26 AM EST) [facility] Sodium 137 133 - 145 mmol/L LAB CHEMISTRY METHOD 04/09/2024 10:49 AM [facility] Potassium 4.4 3.5 - 5.5 mmol/L LAB CHEMISTRY METHOD 04/09/2024 10:49 AM [facility] Chloride 109 96 - 110 mmol/L LAB CHEMISTRY METHOD 04/09/2024 10:49 AM [facility] CO2 24 21 - 32 mmol/L LAB CHEMISTRY METHOD 04/09/2024 10:49 AM [facility] Anion Gap 4 3 - 11 LAB CHEMISTRY METHOD 04/09/2024 10:49 AM [facility] Glucose 75 70 - 100 mg/dL LAB CHEMISTRY METHOD 04/09/2024 10:49 AM [facility] BUN 8 5 - 25 mg/dL LAB CHEMISTRY METHOD 04/09/2024 10:49 AM [facility] Creatinine 0.62 0.50 - 1.10 mg/dL LAB CHEMISTRY METHOD 04/09/2024 10:49 AM [facility] eGFR 122 >=60 mL/min/1. 73m2 LAB CHEMISTRY METHOD 04/09/2024 10:49 AM [facility] Comment:Calculation based on the??Chronic Kidney Disease Epidemiology Collaboration (CKD-EPI) equation refit??without adjustment for race. BUN/Creatinine Ratio 12.9 LAB CHEMISTRY METHOD 04/09/2024 10:49 AM [facility] Calcium 8.6 8.5 - 10.5 mg/dL LAB CHEMISTRY METHOD 04/09/2024 10:49 AM [facility] AST (SGOT) 9(L) 10 - 42 unit/L LAB CHEMISTRY METHOD 04/09/2024 10:49 AM [facility] ALT (SGPT) 14 10 - 60 unit/L LAB CHEMISTRY METHOD 04/09/2024 10:49 AM [facility] Alkaline Phosphatase 41(L) 42 - 121 unit/L LAB CHEMISTRY METHOD 04/09/2024 10:49 AM [facility] Total Protein 6.9 6.0 - 8.0 g/dL LAB CHEMISTRY METHOD 04/09/2024 10:49 AM [facility] Albumin 4.0 3.2 - 5.0 g/dL LAB CHEMISTRY METHOD 04/09/2024 10:49 AM [facility] Total Bilirubin 0.7 0.0 - 1.4 mg/dL LAB CHEMISTRY METHOD 04/09/2024 10:49 AM [facility] Blood Venous blood specimen / Unknown Venipuncture / Unknown 04/09/2024 8:26 AM EST 04/09/2024 8:26 AM EST us Shantell Harjeet MD LAB BLOOD ORDERABLES Final Resul t [facility] [address] [place] [address], * Depression Screening (03/28/2023) Depression Screening abstracted Historical Provider HEALTH MAINTENANCE Final Result * Hm Pap Smear (11/12/2022) Pap smear no interpretation , abstracted Historical Provider HEALTH MAINTENANCE Final Result * (ABNORMAL) Lipid panel (11/07/2022) Pathologist [facility] LDL/HDL Ratio 3 0 - 4 Triglycerides 65 0 - 150 mg/dL Cholesterol 144(A) >=200 mg/dL HDL 50 >=40 mg/dL LDL Cholesterol 81 0 - 100 mg/dL Blood Venous blood specimen / Unknown Historical Provider LAB BLOOD ORDERABLES Belinda l Result from Last 3 Months or Most Recently Relevant to Health Maintenance Insurance MEDICAID - [place] Care Teams Game Room Attendant Relationship Specialty Start Date End Date Shantell Cosby MD [address] [place] [id number] PCP - General Internal Medicine 01/09/24
--- OUTSIDE RECORDS SUMMARY | 2024-06-16 14:02 | XMS_ITS | Encounter Summary ---
Author Organization [facility] Address [address] [place] [address] Care Team Providers Care Continuous Improvement Facilitator Name Role Phone Wesley Spaulding Primary Care Provider + [phone] Reason for Visit * Reason Onset Date Comments Results 02/15/2020 Encounter Details Date Type Department Care Team (Late st Contact Info) Description 02/15/2020 Telephone [facility] [address] [place] [address] Telephone Intake, Staff Results Social History Tobacco [...] on filedocumented in this encounter Care Teams Continuous Improvement Facilitator Relationship Specialty Start Date End Date Wesley Spaulding [address] [place] [phone] PCP - General Internal Medicine 12/23/18 documented as of this encounter
--- OUTSIDE RECORDS SUMMARY | 2024-06-16 14:02 | XMS_ITS | Encounter Summary ---
Author Organization [employer] Address [address] [place] [address] [address] [place] [address] Care Team Providers Care Rubber Goods Tester Name Role Phone Unavailable Primary Care Provider Unavailabl e Reason for Visit * Reason Comments Med Refill Encounter Details Date Type Department Care Team ([facility] st Contact Info) Description 04/06/2024 Refill [facility] [address] [place] [address] Wesley Sapulding MD [address] [place] [address] Social History Tobacco Use Types Packs/Day Years [...]
--- OUTSIDE RECORDS SUMMARY | 2024-06-16 14:02 | XMS_ITS | Encounter Summary ---
Author Organization [facility] Address [address] [place] [address] Care Team Providers Care Electromagnet Crane Operator Name Role Phone Wesley Spaulding Primary Care Provider + [phone] Encounter Details Date Type Department Care Team ([facility] st Contact Info) Description 08/22/2020 Orders Only [facility] [address] [place] [address] Isela Martinez MD [address] [place] [id number] Screening for viral disease (Primary Dx) Social [...] disease documented in this encounter Care Teams Electromagnet Crane Operator Relationship Specialty Start Date End Date Wesley Spaulding [address] [place] [address] PCP - General Internal Medicine 12/23/18 documented as of this encounter
--- OUTSIDE RECORDS SUMMARY | 2024-06-16 14:02 | XMS_ITS | Encounter Summary ---
Author Organization [facility] Address [address] [place] [address] Phone Care Team Providers Care Ditto Machine Operator Name Role Phone Magdalena Hernandez NP Primary Care Provider Jose ednise Encounter Details Date Type Department Care Team (Late st Contact Info) Description 01/02/2017 Conversion Encounter [facility] - [address] [address] Social History Tobacco Use Types Packs/Day Years [...] on filedocumented in this encounter Care Teams Ditto Machine Operator Relationship Specialty Start Date End Date Magdalena Hernandez NP PCP - General 10/11/16 documented as of this encounter
--- OUTSIDE RECORDS SUMMARY | 2024-06-16 14:02 | XMS_ITS | Encounter Summary ---
Author Organization [employer] Address [address] [place] [address] [address] [place] [address] Care Team Providers Care Transfer Operator Name Role Phone Unavailable Primary Care Provider Unavailabl e Reason for Visit * Reason Comments Med Refill Encounter Details Date Type Department Care Team ([facility] st Contact Info) Description 03/04/2024 Refill [facility]EDS [address] [place] [address] Wesley Spaulding MD [address] [place] [address] Social History Tobacco Use Types Packs/Day Years [...]
--- OUTSIDE RECORDS SUMMARY | 2024-06-16 14:02 | XMS_ITS | Encounter Summary ---
Author Organization [employer] Address [address] [place] [address] [address] [place] [address] Care Team Providers Care Etymology Teacher Name Role Phone Unavailable Primary Care Provider Unavailabl e Reason for Visit * Reason Comments Med Refill Encounter Details Date Type Department Care Team ([facility] st Contact Info) Description 12/26/2023 Refill [facility] [address] [place] [address] Wesley Spaulding MD [address] [place] [address] Social History Tobacco Use Types Packs/Day Years Used Date Smoking Tobacco: Former Cigarettes 0.5 12 2 011 - 3 Smokeless Tobacco: Never Comments Unknown Sex and [...]
--- OUTSIDE RECORDS SUMMARY | 2024-06-16 14:02 | XMS_ITS | Encounter Summary ---
Author Organization [facility] Address [address] [place] [address] Phone Care Team Providers Care Topper Packer Name Role Phone Magdalena Hernandez NP Primary Care Provider Jose denise Encounter Details Date Type Department Care Team (Late st Contact Info) Description 07/21/2009 Documentation [facility] [address] [place] [address] Family Medicine, Physician [address] [place], [place] [id number] Social History Tobacco Use Types Packs/Day Years [...] on filedocumented in this encounter Care Teams Topper Packer Relationship Specialty Start Date End Date Magdalena Hernandez NP PCP - General 10/11/16 documented as of this encounter
--- OUTSIDE RECORDS SUMMARY | 2024-06-16 14:02 | XMS_ITS | Referral Summary ---
Author Organization [facility] Address [address] [place] [address] Care Team Providers Care Associate Quality Engineer Name Role Phone Wesley Spaulding Primary Care Provider + [phone] Allergies Active Allergy Reactions Criticality Noted Date Comments Apple Swelling High 10/12/2020 Mouth and throught swell and tingle. [place] Angioedema High 08/25/2020 [place] Angioedema High 08/25/2020 Medications calcium carbonate (CALCIUM [...] Plan of Treatment Not on file Insurance [facility] Advance Directives * Full Code (Latest Code Status on File) Date Activated Date Inactivated Comments 08/25/2020 6:06 AM 08/25/2020 3:57 PM * Full Code Date Activated Date Inactivated Comments 08/11/2020 6:42 AM 08/11/2020 11:17 AM * Full Code Date Activated Date Inactivated Comments 02/12/2019 10:11 AM 02/12/2019 9:12 PM Care Teams Associate Quality Engineer Relationship Specialty Start Date End Date Wesley Spaulding [address] [place] [phone] PCP - General Internal Medicine 12/23/18
--- OUTSIDE RECORDS SUMMARY | 2024-06-16 14:02 | XMS_ITS | Data Portability ---
Author Organization [facility], [address] Address [address] [place] [address] Assessment No assessment recorded. Plan of Treatment Reminders Order Date Submit Date Provider Last Modified By Organization Details Last Modified Time Details Appointments None recorded. Lab rapid flu (A+B) 2022 023 [email or web address] [facility], [address] [place] [address], [id number], 3 09:13:49 Referral None recorded. Procedures None recorded. Surgeries None recorded. Imaging XR, tibia + fibula, 2 view 2022 023 [facility], [address] [place] [address], [id number], 3 10:25:54 Medication Orders cephalexin 500 mg capsule [email or web address] [facility] #[id number], [address] [facility] [address] [facility], [place], [address], 3 10:21:31 prednisone 20 mg tablet 2022 023 [facility]122, [address] [place] [address], [id number], 3 08:39:27 Allergy Relief (fluticason e) 50 mcg/actuati on nasal spray,suspe nsion 2022 023 [facility], [address] [place] [address] [place], [id number], 3 08:39:39 benzonatate 100 mg capsule 2022 023 KAMILA [facility] #15483, [address] [place], [place], [id number], 3 08:39:32 azelastine 0.05 % eye drops 2022 023 absal [facility] #41888, [address] [place], [place], [id number], 3 08:39:27 Patient TargetsNo targets recorded. Patient Instructions Encounter Date Encounter Id Patient Instructions Last Modified By Organization Details Last Modified Time 04/13/2022 [id number] Sinusitis is an infection of the lining [...] care for yourself at home? Take an zrtd-tqm-ezlvnwv pain medicine. Avoid Ibuprofen, Aleve and Aspirin if . If the doctor prescribed antibiotics, take them as directed. Do not stop taking them just because you feel better. You need to take the full course of antibiotics. Be careful when taking jfkt-uba-anlcjjc cold or influenza (flu) medicines and Tylenol [...] Negati ve Not Available [facility] [address] [place] [address], [phone], 04/13/2022 08:40:13 04/13/1904/13/2022 rapid flu (A+B) Unknown Analyte negati ve Not Available [facility] [address] [place] [address], [phone], 04/13/2022 08:40:13 04/13/19 23 04/13/2022 rapid flu (A+B) Unknown Analyte Normal = Negati ve Not Available marjorie murillo [address], [address], 04/13/2022 08:40:13 04/13/19 23 04/13/2022 rapid flu (A+B) Unknown Analyte negati ve Not Available marjorie [address], [address], 04/13/2022 08:40:13 05/11/19 23 05/10/2022 XR, tibia + fibul a, 2 view No observ ation record ed. [email or web address] [facility] [address] [place], [address], 05/10/2022 16:15:36 05/17/19 imagi ng/di agnos tic resul t No observ ation record ed. [email or web address] Not Available 2022 15:00:08 Result Notes None recorded. Problems Name Problem SNOMED Code Status Onset Date Resolution Date Notes Provider Name and Address Organization Details Recorded Time Prolapsed lumbar intervertebral disc 975378338 Active 2022 RUSSELL nichols PA - [facility] 3 08:39:02 Nerve injury 56292194 Active 2022 Krissy nichols PA - [facility] 3 08:39:50 Problem Notes None recorded. Procedures Surgical History Date Name Laterality Status Provider Name and Address Organization Details Recorded Time discectomy of spine completed RUSSELL VENTURA - [facility] 04/13/2022 08:40:09 Imaging Results Imaging Date Name Status LastModified by Organiz ation Details LastModified Time 05/10/2022 XR, tibia + fibula, 2 view completed [email or web address] [facility] [address] [place], [address], 05/10/2022 16:15:36 05/16/2022 imaging/diag nostic result completed Information not available 05/16/2022 15:00:08 Procedure Notes [...] e) 50 mcg/actuati on nasal spray,suspe nsion [place] 1 spray twice a day by intranasa [...] Updated DateTime 3 162.56 cm 25.7 kg/m2 36373.8 6 g 7 99 % 99 % 102 /min 18 /min 97.8 [degF] 102 mm[Hg] 65 mm[Hg] RUSSELL WINCHESTER [facility] 3 08:41:05 Date Recorded Body height Body mass index (BMI) Body weight Oxygen saturation Oxygen saturation in Arterial blood by Pulse oximetry Heart rate Respiratory rate Body temperature Pain severity - 0-10 verbal numeric rating [Score] - Reported Systolic blood pressure Diastolic blood pressure Provider Name and Address Organization Details Last Updated DateTime 3 162.56 cm 27.5 kg/m2 52378.7 8 g 97 % 97 % 103 /min 20 /min 98.3 [degF] 6 105 mm[Hg] 71 mm[Hg] Krissy Atkins [facility] 3 08:35:19 Social History Question Answer Notes LastModified by [facility] ion Details LastModified Time Tobacco Smoking Status Current Every Day Smoker RUSSELL nichols PA [facility] 04/13/2022 08:39:30 What Is Your Level Of Alcohol Consumption? None Information not available 04/13/2022 Have You Had Direct Contact, Or Contact During Intimacy, With Monkeypox Rash, Scabs, Or Body Fluids From A Person With Monkeypox? No [email or web address] Information not available 05/10/2022 How Much Tobacco Do You Smoke? 0.25 PPD Information not available 04/13/2022 Do You Use Any Illicit Or Recreational Drugs? No Information not available 04/13/2022 Have You Recently Traveled Abroad? No [email or web address] Information not available 04/13/2022 Do You Or Have You Ever Used Any Other Forms Of Tobacco Or Nicotine? No [email or web address] Information not available 04/13/2022 Sex: Unknown Functional Status None recorded. Mental Status None recorded. Family History Relationship Description Onset Age of this Age Resolved Age Notes LastModified by Organization Details LastModified Time Father No current problems or disability [email or web address] Not available 04/13 08:39:09 Mother No current problems or disability [email or web address] Not available 04/13 08:39:09 Medical History No medical history recorded. Gynecological HistoryNo gynecological history recorded. Obstetrics History GPAL:G 0 P 0 0 0 0 Immunizations Vaccine Type Date Status Note Provider Nam e and Address Organization Details Recorded Time Influenza, split virus, quadrivalent, preservative 2 completed Krissy Pulaski null, PA - [facility] 05/10/2022 08:39:06 Influenza, split virus, quadrivalent, preservative 1 completed Krissy Wilbert null, PA - [facility] 05/10/2022 08:39:06 Hib, unspecified formulation 4 completed Krissy Wilbert null, PA - [facility] 05/10/2022 08:39:06 Hib, unspecified formulation 4 completed Krissy Pulaski null, PA - [facility] 05/10/2022 08:39:06 HPV9 7 completed Krissy Pulaski null, PA - [facility] 05/10/2022 08:39:06 IPV 9 completed Krissy Pulaski null, PA - [facility] 05/10/2022 08:39:06 IPV 4 completed Krissy Wilbert null, PA - [facility] 05/10/2022 08:39:06 IPV 4 completed Krissy Pulaski null, PA - [facility] 05/10/2022 08:39:06 [...] 30 mcg/0.3 mL dose 2 completed Krissy Wilbert null, PA - [facility] 05/10/2022 08:39:06 COVID-19, mRNA, LNP-S, PF, 30 mcg/0.3 mL dose 1 completed Krissy Pulaski null, PA - [facility] 05/10/2022 08:39:06 COVID-19, mRNA, LNP-S, PF, 30 mcg/0.3 mL dose 1 completed Krissy Pulaski null, PA - [facility] 05/10/2022 08:39:06 COVID-19, mRNA, LNP-S, bivalent, PF, 30 mcg/0.3 mL dose 2 completed Krissy Wilbert null, PA - [facility] 05/10/2022 08:39:06 Tdap 7 completed Krissy Pulaski null, PA - [facility] 05/10/2022 08:39:06 HPV, unspecified formulation 8 completed Krissy Wilbert null, PA - [facility] 05/10/2022 08:39:06 HPV, unspecified formulation 7 completed Krissy Pulaski null, PA - [facility] 05/10/2022 08:39:06 Td (adult), 2 Lf tetanus toxoid, preservative free, adsorbed 5 completed Krissy Pulaski null, PA - [facility] 05/10/2022 08:39:06 Td (adult), 2 Lf tetanus toxoid, preservative free, adsorbed 1 completed Krissy Pulaski null, PA - [facility] 05/10/2022 08:39:06 Hep B, adolescent or pediatric 4 completed Krissy Wilbert null, PA - [facility] 05/10/2022 08:39:06 Hep B, adult 4 completed Krissy Wilbert null, PA - [facility] 05/10/2022 08:39:06 Hep B, adult 4 completed Krissy Pulaski null, PA - [facility] 05/10/2022 08:39:06 Hep B, adult 3 completed Krissy Pulaski null, PA - [facility] 05/10/2022 08:39:06 Hib (PRP-T) 4 completed Krissy Wilbert null, PA - [facility] 05/10/2022 08:39:06 meningococcal MCV4P 1 completed Krissy Wilbert null, PA - [facility] 05/10/2022 08:39:06 DTaP 9 completed Krissy Wilbert null, PA - [facility] 05/10/2022 08:39:06 DTaP 4 completed Krissy Wilbert null, PA - [facility] 05/10/2022 08:39:06 DTaP 4 completed Krissy Pulaski null, PA - [facility] 05/10/2022 08:39:06 DTaP 4 completed Krissy Wilbert null, PA - [facility] 05/10/2022 08:39:06 DTaP 5 completed Krissy Pulaski null, PA - [facility] 05/10/2022 08:39:06 Influenza, split virus, quadrivalent, PF 1 completed Krissy Pulaski null, PA - [facility] 05/10/2022 08:39:06 Past Encounters Encounter ID Performer Location Encounter Start Date Encounter Closed Date Diagnosis/Indication Diagnosis SNOMED-CT Code Diagnosis ICD10 Code Diagnosis [place] [id number] [place] [address] [address] 04/13/2022 08:15:23 04/13/2022 09:18:12 Acute sinusitis 92582249 J01.90 Allergic conjunctivitis of bilateral eyes 3549402835 67767 H10.13 [id number] JOHN FIERRO [facility] [address] [place] [address] 05/10/2022 08:07:23 05/10/2022 10:08:20 Pain in right lower limb 761749258 M79.604 You may take ibuprofen as directed on package. Cellulitis of lower leg 439206386 L03.119 Heat: Apply moist heat to the affected area 3 times a day for 20 minutes at a time. Do not sleep with a heating pad as it may cause skin blum. Acute lymp hadenitis of inguinal lymph nodes [id number] L04.3 Call your PCP to schedule a [...] Schrader Member ID Guarantor Name 04/13/2022 1 [facility] (MEDICAID REPLACEMENT - HMO) AMY Dickinson Jak [id number] Malu Jak 05/10/2022 1 [facility] (MEDICAID REPLACEMENT - HMO) AMY Dickinson Jak [id number] Malu Jak Notes Date Note Type Note [...] Ham NP [address] [place], [address], PA - [facility] 04/13/2022 09:14:44 3 [...] the leg lump. JOHN FIERRO MD [address] [facility], [address], PA - [facility] 05/10/2022 11:24:44 OBGyn Episode No OBEpisode recorded.
--- OUTSIDE RECORDS SUMMARY | 2024-06-16 14:02 | XMS_ITS | Encounter Summary ---
Author Organization [employer] Address [address] [place] [address] [address] [place] [address] Care Team Providers Care Bag Bundler Name Role Phone Unavailable Primary Care Provider Unavailabl e Reason for Visit * Reason Comments Med Refill Encounter Details Date Type Department Care Team ([facility] st Contact Info) Description 06/29/2023 Refill [facility] [address] [place] [address] Wesley Spaulding MD [address] [place] [address] Social History Tobacco Use Types Packs/Day Years [...]
--- OUTSIDE RECORDS SUMMARY | 2024-06-16 14:02 | XMS_ITS | Encounter Summary ---
Author Organization [employer] Address [address] [place] [address] 7 [place] [address] Care Team Providers Care Greenhouse Grower Name Role Phone Wesley Spaulding MD Primary Care Provider [phone] Reason for Visit * Reason Onset Date Comments Med Change Request Med Refill 07/17/2022 Seasonal allergy meds Encounter Details Date Type Department Care Team ([facility] st Contact Info) Description 07/17/2022 Refill [facility] MED & PEDS [address] [place], [place] [phone] Wesley Spaulding MD [address] [place] [address] Seasonal allergies Social History Tobacco Use Types [...] theses medications aren't covered by her insurance. Embedded Firmware Developer called pt pharmacy: [facility] ([facility]) cost $13a pack and Fluticasone cost $25 a bottle. documented in this encounter Plan of Treatment Not on file documented as of this encounter Visit Diagnoses Diagnosis Seasonal allergies Allergic rhinitis, cause unspecified documented in this encounter Care Teams Greenhouse Grower Relationship Specialty Start Date End Date Wesley Spaulding MD [address] [place] [address] PCP - General Internal Medicine 10/26/18 06/08/23 documented as of this encounter
--- OUTSIDE RECORDS SUMMARY | 2024-06-16 14:02 | XMS_ITS | Encounter Summary ---
Author Organization [facility] Address [address] [place] [address] Phone Care Team Providers Care Barn And Property Manager Name Role Phone Magdalena Hernandez NP Primary Care Provider Jose denise Encounter Details Date Type Department Care Team (Late st Contact Info) Description 07/21/2009 Documentation [facility] [address] [place] [address] Family Medicine, Physician [address] [place], [place] [phone] Social History Tobacco Use Types Packs/Day Years [...] on filedocumented in this encounter Care Teams Barn And Property Manager Relationship Specialty Start Date End Date Magdalena Hernandez NP PCP - General 10/11/16 documented as of this encounter
--- OUTSIDE RECORDS SUMMARY | 2024-06-16 14:02 | XMS_ITS | Encounter Summary ---
Author Organization [facility] Address [address] [place] [address] Care Team Providers Care Senior Health Educator Name Role Phone Shantell Coughlin MD Primary Care Provider [phone] Reason for Visit * Reason Onset Date Comments [place] 01/20/2024 Encounter Details Date Type Department Care Team (Late st Contact Info) Description 01/20/2024 Nurse Triage Adult Medicine [address] [phone] Shantell Coughlin MD [address] [place] [address] [place] Social History Tobacco Use Types Packs/Day [...] has been prescribed by a provider from [place] so we will not be filling this [...] traveled recently to another state outside of [place], [place], [place], [place], [place], [place], [place]? no o If yes, did you [...] of accident/Injury: No If yes, gather 3rd constitution party insurance information Third Libertarian Information: not applicable PCP: Shantell Coughlin MD Payor: [facility] PLAN / Plan: [facility] MEDICAID / Product Type: *No Product type* / documented in this encounter Plan of Treatment Upcoming Encounters Date Type Department Care Team (Late st Contact Info) Description 07/02/2024 8:00 AM EDT Consult General Surgery - [place] [address] [address] Garcia Fabian MD 175 [facility] [address] [place] [address] 08/04/2024 8:00 AM EDT Office Visit Adult Medicine [address] [address] Shantell Coughlin MD [address] [place] [address] documented as of this encounter Visit Diagnoses Not on filedocumented in this encounter Care Teams Senior Health Educator Relationship Specialty Start Date End Date Shantell Coughlin MD [address] [place] [address] PCP - General Internal Medicine 01/09/24 documented as of this encounter
--- OUTSIDE RECORDS SUMMARY | 2024-06-16 14:02 | XMS_ITS | Encounter Summary ---
Author Organization [facility] Address [address] [place] [address] 7 [place] [address] Care Team Providers Care Conference Center Coordinator Name Role Phone Wesley Spaulding MD Primary Care Provider [phone] Encounter Details Date Type Department Care Team (Late st Contact Info) Description 12/04/2022 Abstract [facility] MED[facility] [address] [place] [address] Romy Calderon Social History Tobacco Use Types [...] on filedocumented in this encounter Care Teams Conference Center Coordinator Relationship Specialty Start Date End Date Wesley Spaulding MD [address] [place], [place] [phone] PCP - General Internal Medicine 10/26/18 06/08/23 documented as of this encounter
--- OUTSIDE RECORDS SUMMARY | 2024-06-16 14:02 | XMS_ITS | Clinical Summary ---
Author Organization [facility] Address [address] [place] [address] Phone Care Team Providers Care Landscape Designer Name Role Phone Magdalena Hernandez NP Primary [...] of Elevated cholesterol, Family history of Sudden /[place] under age 55, Family history of ADD/ADHD, [...] complete this topic Procedures * Due to [facility] law, this organization might not be sharing sensitive test results. Procedure Name Priority Date/Time Associated Diagnosis Comments CHLAMYDIA AND GONORRHEA, AMPLIFIED Routine 05/03/2014 2:55 PM EST from Last 3 Months or Most Recently Relevant to Health Maintenance Results * Due to [place] vushaper law, this organization might not be sharing sensitive test results. * Chlamydia and Gonorrhoea, Amplified (05/03/2014 2:55 PM EST) URINE CHLAMYDIA AMP PROBE NEGATIVE [facility] Comment: No Chlamydia Trachomatis RNA detected in this patient's sample REFERENCE VALUE: NEGATIVE URINE GC AMP PROBE NEGATIVE [facility] Comment: No Neisseria Gonorrhoeae RNA detected in this patient's sample REFERENCE VALUE: NEGATIVE NOTE: This test uses boat cleaner-mediated amplification method to detect rRNA from C.Trachomatis [...] without risk of sexual abuse. Consult the [facility] if needed. Contact phone number . Therapeutic failure or success cannot be determined with the Aptima Combo2 assay since nucleic acid may persist following appropriate antimicrobial therapy. The Centers for Disease Control and Prevention (CDC) recommends confirmatory retesting using culture or a different nucleic acid amplification test when positive results occur, if indicated. Testing performed or reported by [facility], a Service of [facility], [address] [place] [address] Sam Guthrie MD, PhD, Contract Implementation Analyst 05/03/2014 2:55 PM EST Narrative [facility] - 05/03/2014 2:55 PM EST URINE CHLAMYDIA GC AMP PROBE Magdalena Hernandez NP LAB MICROBIOLOGY - GENERAL OR DERABLES Final Result [facility] [address] [place] [address], from Last 3 Months or Most Recently Relevant to Health Maintenance Care Teams Landscape Designer Relationship Specialty Start Date End Date Magdalena Hernandez NP PCP - General 10/11/16
--- OUTSIDE RECORDS SUMMARY | 2024-06-16 14:02 | XMS_ITS | Clinical Summary ---
Author Organization [employer] Address [address] [facility] [address]t [place] [address] Care Team Providers Care Interpersonal Communications Professor Name Role Phone Unavailable Primary Care Provider Unavailabl e Allergies Active Allergy Reactions Criticality Noted Date Comments Apple Juice Swelling High 10/12/2020 Mouth and throught swell and tingle. [place] Pulp Angioedema High 08/25/2020 Prunus Persica Angioedema [...] Type Department Care Team Description 04/06/2024 Refill [facility] MED & PEDS [address] [place] [address] Wesley Spaulding MD from Last 3 Months Social History [...] Most Recently Relevant to Health Maintenance Insurance [facility] STANDARD [facility] ACO
--- OUTSIDE RECORDS SUMMARY | 2024-06-16 14:02 | XMS_ITS | Clinical Summary ---
Author Organization [facility] Address [address] [place] [address] Care Team Providers Care Association Executive Name Role Phone Wesley Spaulding MD Primary Care Provider [phone] Social History Tobacco Use Types Packs/Day Years [...] 08/31/2012, 1993, Additional history exists Pneumococcal Vaccine: Peds (0 to 5 Years) and At-Risk Patients (6 to 49 Years) Aged Out No longer eligi ble based on patient's age to complete this [place] [address] Medicaid Care Teams Association Executive Relationship Specialty Start Date End Date Wesley Spaulding MD [address] [place] [address] PCP - General Internal Medicine 08/25/23
--- OUTSIDE RECORDS SUMMARY | 2024-06-16 14:02 | XMS_ITS | Encounter Summary ---
Author Organization [facility] Address [address] [place] [address] Phone Care Team Providers Care Logistics Operations Manager Name Role Phone Magdalena Hernandez NP Primary Care Provider Jose denise Encounter Details Date Type Department Care Team (Late st Contact Info) Description 09/27/2009 Documentation [facility] Family Medicine [address] [place] [address] Family Medicine, Physician [address] [place], [place] [phone] Social History Tobacco Use Types Packs/Day Years [...] on filedocumented in this encounter Care Teams Logistics Operations Manager Relationship Specialty Start Date End Date Magdalena Hernandez NP PCP - General 10/11/16 documented as of this encounter
== END 2024-06-16 14:43 | disposition left against medical advice (07) ==
PROVIDERS: Physician Assistant Medical; Emergency Provider Emergency Medicine; PCP Internal Medicine
DX: O20.9 Hemorrhage in early pregnancy, unspecified (principal); Z3A.01 Less than 8 weeks gestation of pregnancy
CPT/HCPCS: 36415; 80048; 80076; 83735; 84702; 85025; 96372; 99282; 99284; J1885

== ENCOUNTER 2024-06-16 22:37 | Emergency (ER) | payer MEDICAID, SELFPAY ==
--- NOTE | ~2024-06-16 | US_ITS ---
CLINICAL HISTORY: HCG 1750, took pills 1 week ago, retained --- Additional Notes or Special Instructions: Please evaluate for possible retained products of conception [facility]IME[facility] OBSTETRICAL ULTRASOUND COMPARISON: None. FINDINGS: There is no intrauterine gestational sac. No adnexal mass or loculated fluid collection. Heterogeneous material is noted within the endometrial cavity. The endometrial cavity measures approximately 2.2 cm in thickness on image 6. There is no hypervascularity. Left ovary measures 2.7 x 1.9 x 1.8 cm and is unremarkable. Right ovary measures 4.2 x 1.9 x 2.3 cm and contains a 2.1 x 1.6 x 2.1 cm probable corpus luteum cyst. IMPRESSION: 1. There is no intrauterine gestation. Differential considerations include early intrauterine , ectopic , and miscarriage. Correlation with serial beta-hCG levels is advised. A follow-up ultrasound examination can be considered, as clinically directed. 2. Heterogeneous material is noted within the endometrial cavity, with the endometrial cavity measuring approximately 2.2 cm in thickness. There is no hypervascularity. If the patient has miscarried, retained products of conception will need to be excluded. Consultation with OB-RETORT ENGINEER is advised to determine appropriate management/follow-up. This document has been electronically signed by: Claudio Strong M.D. on 06/17/2024 04:05:59
[2024-06-16 22:40] VITALS: BP 98/52; PULSE 125; RESP 18; TEMP 37.4; O2SAT 98; BMI 24.0
--- NOTE | 2024-06-17 00:52 | ED_ITS ---
HPI - General Adult General Chief complaint: Abdominal Pain Stated complaint: fever, abdominal pain seen earlier today Time Seen by Provider: 06/17/24 00:52 History of Present Illness ED Provider: Kota BERMUDEZ narrative: The patient is a 29-year-old female who was approximately 6 weeks 2 weeks ago when she started taking mifepristone and misoprostol for the purposes of a medical . She took the 1st fill on June 04 and the 2nd pill on June 05. [facility] She says that she has had vaginal bleeding for about a week. She has also been having a lot of intermittent bandar like pains. Earlier today she was having pains that were not relieved by Tylenol. [facility] get checked in an emergency room. She had come earlier on June 16 at around 11 in the morning. She had labs done and a bedside ultrasound by the emergency physician. However she left the emergency room without completing treatment at 1:39 PM. She was upset because she had not received any pain medications. She returned this evening because she was still having a lot of symptoms and other the also apparently had a temperature of 100.4 degrees at home this evening. At the 1st visit she had had labs that showed a beta hCG of 1729. She had had a white count of 6.0, hemoglobin of 10.5. Related Data Previous Rx's ?Medication ?Instructions ?Recorded naproxen 500 mg tablet 500 mg PO BID PRN pain #20 tabs 09/13/20 doxycycline monohydrate 100 mg 100 mg PO BID #20 caps 09/25/20 capsule erythromycin 5 mg/gram (0.5 %) eye 0.5 inch ophthalmic (eye) BID 7 10/26/20 ointment days #3.5 grams prednisone 20 mg tablet 60 mg (3 x 20 mg) PO DAILY 4 days 10/26/20 #12 tabs doxycycline hyclate 100 mg tablet 100 mg PO BID 10 days #20 tabs 12/22/20 naproxen 500 mg tablet 500 mg PO BID PRN pain #14 tabs 12/22/20 lorazepam 1 mg tablet 1 mg PO TID PRN anxiety #10 tabs 08/19/21 ondansetron 4 mg disintegrating 4 mg PO Q6H PRN nausea and 08/19/21 tablet vomiting #10 tabs polymyxin B sulfate 10,000 1 drp ophthalmic (eye) Q3H 7 days 04/09/22 unit-trimethoprim 1 mg/mL eye #10 mL drops (Polytrim) Allergies Allergy/AdvReac Type Severity Reaction Status Date / Time peach Allergy Angioedema Verified 06/16/24 22:44 plum Allergy Angioedema Verified 06/16/24 22:44 Review of Systems 2 Review of Systems: Yes all other systems are reviewed and are negative [facility] Past Medical History Medical History Lumbar disc herniation with radiculopathy No known health problems Social History Social History Alcohol intake: never Patient Tobacco Use Status: Never used Tobacco Use of substances other than those prescribed or required for medical reasons: No Advance Directives: No Advance Directives Information Provided: Yes Do you have a plan to hurt others: No Plan Physical Exam ED Vital Signs: Vital Signs - 24 hr 06/16/24 22:40 06/17/24 02:29 06/17/24 04:08 Temperature 99.4 F 98.3 F Pulse Rate 125 H 85 88 Respiratory Rate 18 16 14 Blood Pressure 98/52 L 93/55 L 96/52 L Pulse Oximetry 98 100 99 Oxygen Delivery Method Room Air Room Air Room Air 06/17/24 06:08 Temperature 102.1 F H Pulse Rate 114 H Respiratory Rate 18 Blood Pressure 99/45 L Pulse Oximetry 100 Oxygen Delivery Method Room Air BMI result Body Mass Index 24.0 Const Other: The patient was awake and alert. She seemed to have a very anxious affect. My initial impression was that she was very anxious but not necessarily acutely ill. HENMT Other: Face is symmetrical. Mucous membranes moist. Eyes General: appearance normal, both eyes and all related structures Neck Neck: Yes full ROM Resp Effort & Inspection: normal respiratory effort Auscultation: clear to auscultation bilaterally Cardio Rate: regular rate Rhythm: regular rhythm Heart sounds: S1 normal heart sound present and S2 normal heart sound present GI Other: The abdomen is soft and nontender Other: Unremarkable external genitalia although there was some blood present. With insertion of the speculum there was a pool of blood in the vaginal vault. This was suctioned. Cervical os is closed. Minimal ongoing bleeding. No purulence. The patient had uterine tenderness with bimanual palpation. Skin Other: Skin is dry and unremarkable Neuro Other: The patient is awake and alert. She had a very anxious demeanor and affect. Cranial nerves were intact. She moves her extremities symmetrically. Extrem Other: No peripheral edema Medications Administered Generic Name Dose Route Start Last Admin Trade Name Freq PRN Reason Stop Dose Admin Piperacillin Sod/Tazobactam 100 mls @ 200 mls/hr 06/17/24 05:39 06/17/24 05:59 Sod 4.5 gm/ Sodium Chloride IV 06/17/24 06:08 200 mls/hr ONCE ONE Administration Sodium Chloride 1,000 mls @ 999 mls/hr 06/17/24 05:45 06/17/24 06:20 Ns IV 06/17/24 06:45 999 mls/hr .Q1H1M PATRICIA Administration Acetaminophen 1,000 mg in 100 mls @ 400 mls/hr 06/17/24 05:51 06/17/24 06:23 Ofirmev IV 06/17/24 06:05 Infused ONCE ONE Infusion Morphine Sulfate 4 mg 06/17/24 05:51 06/17/24 06:06 Morphine Sulfate 4 Mg/Ml Cartridge IVPUSH 06/17/24 05:52 4 mg ONCE ONE Administration Protocol Discontinued Medications Generic Name Dose Route Start Last Admin Trade Name Freq PRN Reason Stop Dose Admin Sodium Chloride 1,000 mls @ 999 mls/hr 06/17/24 01:30 06/17/24 04:16 Ns IV 06/17/24 02:30 Infused .Q1H1M PATRICIA Infusion Ketorolac Tromethamine 10 mg 06/17/24 01:17 06/17/24 02:01 Ketorolac Tromethamine 15 Mg/Ml Vial IVPUSH 06/17/24 01:18 10 mg ONCE ONE Administration Morphine Sulfate 4 mg 06/17/24 01:43 06/17/24 02:01 Morphine Sulfate 4 Mg/Ml Cartridge IVPUSH 06/17/24 01:44 4 mg ONCE ONE Administration Protocol Ondansetron HCl 4 mg 06/17/24 01:57 06/17/24 02:01 Ondansetron Hcl 4 Mg/2 Ml Vial IVPUSH 06/17/24 01:58 4 mg ONCE ONE Administration Medical Decision Making Medical Decision Making MDM Narrative: The patient is a 29-year-old who began a medication 2 weeks ago. She has had ongoing vaginal bleeding for over a week and has also had crampy abdominal pain. She was seen several hours prior to this visit here with unremarkable labs. Beta hCG was 1729. The patient had left the emergency room several hours prior after being frustrated that she had not received pain medications. She returns because she was feeling worse. Initially the patient had tachycardia at triage but was not febrile. On my exam she does not look obviously acutely ill but seemed very anxious. Her abdomen seemed benign. A repeat beta hCG was 1300. WBC was 5.9 with 87.9 neutrophils. An ultrasound was done that showed material in the endometrium that possibly represented retained products of conception. After the ultrasound results were available I performed a speculum exam during which time the patient seemed to be having shivering. It was hard to tell whether this was related to anxiety or might be shaking chills. I used a thermometer to check a vaginal temperature and it was 102. I proceeded with a pelvic exam, swabs for GC and chlamydia, bacterial vaginosis, and a wound culture were sent. Because of the patient's temperature of 102 degrees blood cultures and a lactate were obtained and the patient was started on Zosyn. I discussed the case with Dr. Toribio of Gynecology. He is single coverage and is not going to be available after this morning. He therefore does not feel he can provide complete care for this patient who might require hospitalization. I therefore contacted [facility] and discussed the case with an on- call controls operator molded goods, Dr. Mickey Grover, who has accepted the patient for transfer to the [facility] unit. I explained to the patient that given her fever and retained products of conception on ultrasound that she might require a surgical procedure that hospitalization and that transfer to [facility] is necessary for appropriate care. The patient understands this. Lab Data 06/17/24 01:40 06/17/24 01:40 Labs: Lab Results 06/17/24 06/17/24 Range/Units 01:40 05:39 WBC 5.9 (4.8-10.8) X10*3/uL RBC 3.73 L (4.20-5.50) X10*6/uL Hgb 9.4 L (12.0-16.0) g/dl Hct 28.5 L (37.0-47.0) % MCV 76.4 L (80.0-98.0) fL MCH 25.2 L (27.0-33.0) pg MCHC 33.0 (31.0-35.0) g/dl RDW 14.4 (11.0-16.0) % Plt Count 265 (160-400) X10*3/uL MPV 9.3 L (9.4-12.3) fL Immature Gran % (Auto) 0.7 H (0.0-0.4) % Neut % (Auto) 87.9 H (45-73) % Lymph % (Auto) 8.3 L (20-40) % Sabine % (Auto) 2.4 (2-11) % Eos % (Auto) 0.0 (0-4) % Baso % (Auto) 0.7 (0-2) % Lymph # (Auto) 0.5 L (1.2-4.9) X10*3/uL Sabine # (Auto) 0.1 (0.1-1.2) X10*3/uL Eos # (Auto) 0.0 (0.0-0.4) X10*3/uL Baso # (Auto) 0.0 (0.0-0.2) X10*3/uL Abs Immat Gran (auto) 0.04 H (0.00-0.03) X10*3/uL Absolute Neuts (auto) 5.2 (2.0-8.3) x10*3/uL Absolute Nucleated RBC 0.000 (0.0-0.012) X10*3/uL Nucleated RBC % (auto) 0.0 (0.0-0.2) /100WBC Sodium 138 (135-145) mmol/L Potassium 3.5 D (3.3-5.1) mmol/L Chloride 110 H (96-108) mmol/L Carbon Dioxide 18 L (22-29) mmol/L Anion Gap 14 (12-20) BUN 9 (9-16) mg/dL Creatinine 0.64 (0.5-1.4) mg/dL Estim Creat Clear Calc 109.9 Estimated GFR > 60 Random Glucose 94 (60-115) mg/dL Lactic Acid 2.0 (0.5-2.0) mmol/L Calcium 8.4 D (8.4-10.2) mg/dL Total Bilirubin 0.4 (0.0-1.0) mg/dL Direct Bilirubin 0.2 (0.0-0.5) mg/dL AST 68 H (5-31) U/L ALT 42 H (0-31) U/L Alkaline Phosphatase 88 (39-117) U/L Total Protein 6.6 (6.5-8.0) g/dL Albumin 3.4 L (3.5-5.0) g/dL Beta HCG, Quant 1303 mIU/mL Critical Care Time Critical Care Time Critical Care Time: Yes Total Critical Care Time: 35 Attestation: The patient was critically ill with a high probability of imminent or life- threatening deterioration. ?I spent greater than 30 minutes of discontinuous time evaluating the patient, delivering critical care at the bedside, discussing evaluating data with consultants. ?Critical care time does not include time spent performing separately billable procedures or teaching. ?Time spent performing critical care with 35 minutes. Discharge Plan Discharge Clinical Impression: Incomplete complicated by genital tract and pelvic infection Patient Disposition: [facility] Transfer Details: [facility], ESTHER, Dr. Mickey Grover Prescriptions: No Action doxycycline monohydrate 100 mg capsule 100 mg PO BID Qty: 20 0RF naproxen 500 mg tablet 500 mg PO BID PRN (Reason: pain) Qty: 20 0RF prednisone 20 mg tablet 60 mg PO DAILY 4 Days Qty: 12 0RF erythromycin 5 mg/gram (0.5 %) ointment 0.5 inch ophthalmic (eye) BID 7 Days Qty: 3.5 0RF lorazepam 1 mg tablet 1 mg PO TID PRN (Reason: anxiety) Qty: 10 0RF ondansetron 4 mg tablet,disintegrating 4 mg PO Q6H PRN (Reason: nausea and vomiting) Qty: 10 0RF polymyxin B sulf-trimethoprim [Polytrim] 10,000 unit- 1 mg/mL drops 1 drp ophthalmic (eye) Q3H 7 Days Qty: 10 0RF Rx Instructions: while awake; do not exceed 6 doses in 24 hours doxycycline hyclate 100 mg tablet 100 mg PO BID 10 Days Qty: 20 0RF naproxen 500 mg tablet 500 mg PO BID PRN (Reason: pain) Qty: 14 0RF Print Language: Romanian
[2024-06-17 01:44] LABS: MANUAL DIFF FLAG NO
[2024-06-17 01:49] LABS: Basophils Percent Auto 0.7 % (0-2); Hematocrit 28.5 % (37.0-47.0); Hemoglobin 9.4 g/dl (12.0-16.0); Imm Gran Abs Auto 0.04 X10*3/uL (0.00-0.03); Imm Gran Pct Auto 0.7 % (0.0-0.4); Lymphocytes Absolute Auto 0.5 X10*3/uL (1.2-4.9); Lymphocytes Percent Auto 8.3 % (20-40); Mean Corpuscular Hemoglobin 25.2 pg (27.0-33.0); Mean Corpuscular Volume 76.4 fL (80.0-98.0); Mean Platelet Volume 9.3 fL (9.4-12.3); Monocytes Absolute Auto 0.1 X10*3/uL (0.1-1.2); Monocytes Percent Auto 2.4 % (2-11); Neutrophils Absolute Auto 5.2 x10*3/uL (2.0-8.3); Neutrophils Percent Auto 87.9 % (45-73); Platelet Count 265 X10*3/uL (160-400); Red Blood Count 3.73 X10*6/uL (4.20-5.50); Red Cell Distribution Width 14.4 % (11.0-16.0); White Blood Count 5.9 X10*3/uL (4.8-10.8)
[2024-06-17] MEDS: 0.9 % Sodium Chloride 1,000 ML 999 ML IV ×2 (01:51→06:20)
[2024-06-17] MEDS: Ketorolac Tromethamine 15 MG/ML VIAL 10 MG IVPUSH (02:01)
[2024-06-17] MEDS: Morphine Sulfate 4 MG/ML CARTRIDGE IVPUSH ×2 (02:01→06:06)
[2024-06-17] MEDS: ondansetron HCL 4 MG/2 ML VIAL IVPUSH (02:01)
[2024-06-17 02:04] LABS: HCG Quantitative 1303 mIU/mL
[2024-06-17 02:05] LABS: Alanine Aminotransferase 42 U/L (0-31); Albumin Level 3.4 g/dL (3.5-5.0); Anion Gap 14 (12-20); Aspartate Amino Transferase 68 U/L (5-31); Bilirubin Direct 0.2 mg/dL (0.0-0.5); Bilirubin Total 0.4 mg/dL (0.0-1.0); Blood Urea Nitrogen 9 mg/dL (9-16); Calcium 8.4 mg/dL (8.4-10.2); Carbon Dioxide 18 mmol/L (22-29); Chloride 110 mmol/L (96-108); Creatinine Clr Calc Pharmacy 109.9; Estimated Glomerular Filt Rate > 60; Glucose Random 94 mg/dL (60-115); Potassium 3.5 mmol/L (3.3-5.1); Sodium 138 mmol/L (135-145); Total Protein 6.6 g/dL (6.5-8.0)
[2024-06-17 02:29] VITALS: BP 93/55; PULSE 85; RESP 16; TEMP 36.8; O2SAT 100
[2024-06-17 02:46] LABS: Alkaline Phosphatase 88 U/L (39-117)
[2024-06-17 04:08] VITALS: BP 96/52; PULSE 88; RESP 14; O2SAT 99
--- NOTE | 2024-06-17 05:48 | PM.GYNCN ---
DIRECTOR OF CAMPUS RECREATION - CN: HPI Data of Consult Consult date: 06/17/24 Primary Care Provider: Shantell Cosby MD Consult Narrative Narrative: I was consulted on Malu Benedict who is a 29 year old female [facility] weeks of [facility], 2 weeks ago with mifepristone and misoprostol. This was followed by 1 week of vaginal bleeding associated with pelvic cramping. Earlier today she was having pains that were not relieved by Tylenol. She presents to the emergency room earlier on June 16 at around 11 in the morning. She had labs done and a bedside ultrasound by the emergency physician. However the patient left the emergency room without completing treatment at 1:39 PM. She was upset because she had not received any pain medications. She returned this evening because she was still having a lot of symptoms and other the also apparently had a temperature of 100.4 at home this evening. In the emergency room temperature was 102 degrees, the patient has started having chills Blood pressure 96/52 H&H 9.4/28.5 with a white count of 5.9 Ultrasound showed the following: IMPRESSION: 1. There is no intrauterine gestation. Differential considerations include early intrauterine , ectopic , and miscarriage. Correlation with serial beta-hCG levels is advised. A follow-up ultrasound examination can be considered, as clinically directed. 2. Heterogeneous material is noted within the endometrial cavity, with the endometrial cavity measuring approximately 2.2 cm in thickness. There is no hypervascularity. If the patient has miscarried, retained products of conception will need to be excluded. Consultation with OB-DIRECTOR OF CAMPUS RECREATION is advised to determine appropriate management/follow-up. cc:: CC: OB [facility] Past Medical History Medical History Lumbar disc herniation with radiculopathy No known health problems Social History Social History Alcohol intake: never Patient Tobacco Use Status: Never used Tobacco Meds Allergies Allergy/AdvReac Type Severity Reaction Status Date / Time peach Allergy Angioedema Verified 06/16/24 22:44 plum Allergy Angioedema Verified 06/16/24 22:44 Active Medications: Current Medications Piperacillin Sod/Tazobactam (Sod 4.5 gm/ Sodium Chloride) 100 mls @ 200 mls/hr IV ONCE ONE Stop: 06/17/24 06:08 Sodium Chloride (Ns) 1,000 mls @ 999 mls/hr IV .Q1H1M PATRICIA Stop: 06/17/24 06:45 DIRECTOR OF CAMPUS RECREATION Physical Exam Vitals Vital signs: Temp Pulse Resp BP Pulse Ox O2 Del Method 98.3 F 88 14 96/52 L 99 Room Air 06/17/24 02:29 06/17/24 04:08 06/17/24 04:08 06/17/24 04:08 06/17/24 04:08 06/17/24 04:08 BMI result Body Mass Index 24.0 Additional Comments: Exam reported by Dr. Escudero as the following Abdominal exam soft with no tenderness Pelvic exam showed mild blood per vagina, cervical uterine or adnexal tenderness, no purulent discharge, no active bleeding DIRECTOR OF CAMPUS RECREATION - Results Labs 06/17/24 01:40 06/17/24 01:40 Labs: Short CBC 06/17/24 Range/Units 01:40 WBC 5.9 (4.8-10.8) X10*3/uL Hgb 9.4 L (12.0-16.0) g/dl Hct 28.5 L (37.0-47.0) % Plt Count 265 (160-400) X10*3/uL BMP 06/17/24 01:40 Sodium 138 Potassium 3.5 D Chloride 110 H Carbon Dioxide 18 L BUN 9 Creatinine 0.64 Calcium 8.4 D Liver Function 06/17/24 Range/Units 01:40 Total Bilirubin 0.4 (0.0-1.0) mg/dL Direct Bilirubin 0.2 (0.0-0.5) mg/dL AST 68 H (5-31) U/L ALT 42 H (0-31) U/L Alkaline Phosphatase 88 (39-117) U/L Albumin 3.4 L (3.5-5.0) g/dL Assessment and Plan (1) Incomplete complicated by genital tract and pelvic infection: Status: Acute Recommended to Dr. Escudero the following: GC/CT, BV panel/Trichomonas Screen for sepsis if positive treat accordingly Start ceftriaxone/doxycycline/metronidazole sergio The patient is needs suction D&C sergio Transfer to [facility], since there no cheese packer coverage in-hospital and for the emergency for the coming 4 days. I spent a total of 20 minutes reviewing the chart, communicating to the emergency room provider and documenting in the medical record
[2024-06-17] MEDS: Piperacillin Sodium/Tazobactam 4.5 GM in 0.9 % Sodium Chloride 100 ML IV (05:59)
[2024-06-17] MEDS: Acetaminophen 1,000 MG/100 ML PIGGYBACK 400 MG IV (06:06)
[2024-06-17 06:08] VITALS: BP 99/45; PULSE 114; RESP 18; TEMP 38.9; O2SAT 100
--- NOTE | 2024-06-17 06:13 | PC.NURSE ---
22g R hand, 20g L forearm. DURING DOWN TIME: 5mg diazepam, 4mg zofran, 1L LR. pelvic exam done. vaginal temp taken at that time, 102.1.
--- NOTE | 2024-06-17 06:47 | PC.NURSE ---
report given to Rn at [facility]
[2024-06-17 06:49] VITALS: BP 103/50; PULSE 123; RESP 20; TEMP 37.8; O2SAT 99
[2024-06-17 08:37] LABS: Bacterial Vaginosis PCR NEGATIVE (Negative); Candida Group PCR NOT DETECTED (Not Detect); Candida glab krusei PCR NOT DETECTED (Not Detect); Trichomonas vaginalis PCR NOT DETECTED (Not Detect)
[2024-06-17 15:13] LABS: CT PCR NOT DETECTED (Not Detect.); NG PCR NOT DETECTED (Not Detect.)
== END 2024-06-17 07:20 | disposition short-term general hospital (02) ==
PROVIDERS: Emergency Provider Emergency Medicine; PCP Internal Medicine
DX: O03.0 Genital tract and pelvic infection following incomplete spontaneous abortion (principal); R10.2 Pelvic and perineal pain; R50.9 Fever, unspecified
CPT/HCPCS: 36415; 76801; 80048; 80076; 81515; 83605; 84702; 85025; 86850; 86900; 86901; 87040; 87070; 87147; 87205; 87491; 87591; 96361; 96365; 96367; 96375; 96376; 99284; 99285; J0131; J1885; J2270; J2405; J2543

== ENCOUNTER → 2024-06-16 23:51 | Outpatient (BNV) | payer MEDICAID, SELFPAY | PROVIDERS: Emergency Provider Emergency Medicine; PCP Internal Medicine; Visit Provider Obstetrics & Gynecology | DX: O03.0 Genital tract and pelvic infection following incomplete spontaneous abortion (principal) | CPT/HCPCS: 99499 ==

== ENCOUNTER → 2024-06-17 01:39 | Outpatient (BNV) | payer MEDICAID, SELFPAY | PROVIDERS: Emergency Provider Emergency Medicine; PCP Internal Medicine; Visit Provider Radiology Diagnostic Radiology | DX: O02.81 Inappropriate change in quantitative human chorionic gonadotropin (hCG) in early pregnancy (principal) | CPT/HCPCS: 76801 ==

== ENCOUNTER 2024-06-17 21:45 | Emergency (ER) | payer MEDICAID, SELFPAY ==
[2024-06-17 22:07] VITALS: BP 124/68; PULSE 99; RESP 18; TEMP 37.4; O2SAT 100; BMI 24.0
--- NOTE | 2024-06-17 22:25 | PC.NURSE ---
In reviewing previous labs pt positive for gram positive cocci- according to previous MD report pt was seen this morning in [facility] and transferred to [facility]. Charge nurse notified.
[2024-06-17 22:40] LABS: MANUAL DIFF FLAG NO
[2024-06-17 22:41] LABS: Basophils Percent Auto 0.2 % (0-2); Hematocrit 26.4 % (37.0-47.0); Hemoglobin 8.8 g/dl (12.0-16.0); Imm Gran Abs Auto 0.06 X10*3/uL (0.00-0.03); Imm Gran Pct Auto 1.4 % (0.0-0.4); Lymphocytes Absolute Auto 0.8 X10*3/uL (1.2-4.9); Lymphocytes Percent Auto 19.1 % (20-40); Mean Corpuscular HGB Conc 33.3 g/dl (31.0-35.0); Mean Corpuscular Hemoglobin 25.7 pg (27.0-33.0); Mean Corpuscular Volume 77.2 fL (80.0-98.0); Mean Platelet Volume 9.7 fL (9.4-12.3); Monocytes Absolute Auto 0.2 X10*3/uL (0.1-1.2); Monocytes Percent Auto 4.1 % (2-11); Neutrophils Absolute Auto 3.2 x10*3/uL (2.0-8.3); Neutrophils Percent Auto 75.2 % (45-73); Platelet Count 189 X10*3/uL (160-400); Red Blood Count 3.42 X10*6/uL (4.20-5.50); Red Cell Distribution Width 14.6 % (11.0-16.0); White Blood Count 4.2 X10*3/uL (4.8-10.8)
[2024-06-17 22:55] LABS: Alanine Aminotransferase 69 U/L (0-31); Albumin Level 3.1 g/dL (3.5-5.0); Alkaline Phosphatase 137 U/L (39-117); Aspartate Amino Transferase 107 U/L (5-31); Bilirubin Total 0.7 mg/dL (0.0-1.0); Blood Urea Nitrogen 8 mg/dL (9-16); Calcium 7.7 mg/dL (8.4-10.2); Creatinine Clr Calc Pharmacy 113.5; Estimated Glomerular Filt Rate > 60; Glucose Random 95 mg/dL (60-115); Lactic Acid 1.2 mmol/L (0.5-2.0)
[2024-06-17] MEDS: Piperacillin Sodium/Tazobactam 3.375 GM in 0.9 % Sodium Chloride 50 ML IV (23:18)
[2024-06-17 23:20] VITALS: BP 97/55; PULSE 89; RESP 18; TEMP 36.8; O2SAT 100
[2024-06-17 23:38] LABS: Lactic Acid 1.1 mmol/L (0.5-2.0)
[2024-06-17 23:39] LABS: Anion Gap 10 (12-20); Carbon Dioxide 20 mmol/L (22-29); Chloride 107 mmol/L (96-108); Potassium 3.3 mmol/L (3.3-5.1); Sodium 134 mmol/L (135-145)
[2024-06-17 23:44] LABS: HCG Quantitative 997 mIU/mL
[2024-06-18] MEDS: ondansetron HCL 4 MG/2 ML VIAL IVPUSH (00:02)
[2024-06-18] MEDS: Morphine Sulfate 4 MG/ML CARTRIDGE IVPUSH (00:02)
--- NOTE | 2024-06-18 01:21 | ED.GENADULT ---
HPI - General Adult General Chief complaint: Recheck/Abnormal Lab/Rx Stated complaint: abnormal labs Time Seen by Provider: 06/17/24 22:59 Source: patient Mode of arrival: ambulatory Limitations: no limitations History of Present Illness ED Provider: HPI narrative: 29 year old female [facility] of [facility], 2 weeks ago with mifepristone and misoprostol. This was followed by 1 week of vaginal bleeding associated with pelvic cramping. Patient was seen here yesterday earlier by [facility] and transferred to [facility] for further evaluation for incomplete complicated by genital tract and pelvic infection for patient having fever 100.1 intermittent patient was seen at [facility] discharge as there was no RPOC patient was called back to the ER as blood cultures done yesterday showed Gram-positive cocci in chain both in anaerobic and aerobic culture Gram-positive cocci in cluster in aerobic also patient has received IV Zosyn in the ER patient has had T-max of 102.1 degrees yesterday in the ER today was 99.3 Related Data Previous Rx's ?Medication ?Instructions ?Recorded naproxen 500 mg tablet 500 mg PO BID PRN pain #20 tabs 09/13/20 doxycycline monohydrate 100 mg 100 mg PO BID #20 caps 09/25/20 capsule erythromycin 5 mg/gram (0.5 %) eye 0.5 inch ophthalmic (eye) BID 7 10/26/20 ointment days #3.5 grams prednisone 20 mg tablet 60 mg (3 x 20 mg) PO DAILY 4 days 10/26/20 #12 tabs doxycycline hyclate 100 mg tablet 100 mg PO BID 10 days #20 tabs 12/22/20 naproxen 500 mg tablet 500 mg PO BID PRN pain #14 tabs 12/22/20 lorazepam 1 mg tablet 1 mg PO TID PRN anxiety #10 tabs 08/19/21 ondansetron 4 mg disintegrating 4 mg PO Q6H PRN nausea and 08/19/21 tablet vomiting #10 tabs polymyxin B sulfate 10,000 1 drp ophthalmic (eye) Q3H 7 days 04/09/22 unit-trimethoprim 1 mg/mL eye #10 mL drops (Polytrim) Allergies Allergy/AdvReac Type Severity Reaction Status Date / Time peach Allergy Angioedema Verified 06/17/24 22:10 plum Allergy Angioedema Verified 06/17/24 22:10 Review of Systems Review of Systems: Yes all other systems are reviewed and are negative [facility] Past Medical History Medical History Lumbar disc herniation with radiculopathy No known health problems Social History Social History Alcohol intake: never Patient Tobacco Use Status: Never used Tobacco Use of substances other than those prescribed or required for medical reasons: No Advance Directives: No Advance Directives Information Provided: Yes Do you have a plan to hurt others: No Plan Physical Exam ED Vital Signs: Vital Signs - 24 hr 06/17/24 22:07 06/17/24 23:20 06/18/24 01:39 Temperature 99.3 F 98.2 F 98.6 F Pulse Rate 99 89 88 Respiratory Rate 18 18 16 Blood Pressure 124/68 97/55 L 96/49 L Pulse Oximetry 100 100 96 Oxygen Delivery Method Room Air Room Air Room Air BMI result Body Mass Index 24.0 Appearance: Alert. Oriented X3. No acute distress. Eyes: PERRLA, No Nystagmus ENT: Pharynx normal. Oral Mucosa moist Neck: Normal inspection. Neck supple. CVS: Normal heart rate and rhythm. Pulses normal. Respiratory: No respiratory distress. Equal air entry bilateral, no wheezing/rales/rhonchi Abdomen: Soft and suprapubic tenderness Bowel sounds are present, no mass palpable, no CVA tenderness Skin: Skin warm and dry. Normal skin color. Normal skin turgor. Extremities: No lower extremity edema. No calf tenderness Neuro: Oriented X 3. No motor deficit. No sensory deficit.No cerebellar signs , cranial nerves II-XII intact Medications Administered Discontinued Medications Generic Name Dose Route Start Last Admin Trade Name Freq PRN Reason Stop Dose Admin Piperacillin Sod/Tazobactam 50 mls @ 100 mls/hr 06/17/24 22:59 06/18/24 00:01 Sod 3.375 gm/ Sodium Chloride IV 06/17/24 23:28 Infused ONCE ONE Infusion Morphine Sulfate 4 mg 06/17/24 23:52 06/18/24 00:02 Morphine Sulfate 4 Mg/Ml Cartridge IVPUSH 06/17/24 23:53 4 mg ONCE ONE Administration Protocol Ondansetron HCl 4 mg 06/17/24 23:52 06/18/24 00:02 Ondansetron Hcl 4 Mg/2 Ml Vial IVPUSH 06/17/24 23:53 4 mg ONCE ONE Administration Sumatriptan Succinate 6 mg 06/18/24 01:21 06/18/24 01:40 Sumatriptan Succinate 6 Mg/0.5 Ml Vial SUBCUT 06/18/24 01:22 6 mg ONCE ONE Administration Medical Decision Making Medical Decision Making [facility] Narrative: Patient with positive cultures anaerobic and aerobic with Gram-positive cocci in chain received IV antibiotics no cigarette examiner coverage at [facility] will transfer the patient to [facility] for further evaluation rule out endometritis Dr. Brown admit accepted the patient to be seen at [facility] Differential Diagnosis Differential Diagnoses: The differential diagnosis associated with the presentation includes Endometritis Lab Data [facility] Lab Attestation statement: I reviewed the patient's lab results. 06/17/24 22:35 06/17/24 22:35 Labs: Lab Results 06/17/24 06/17/24 06/18/24 Range/Units 22:35 23:16 01:24 WBC 4.2 L (4.8-10.8) X10*3/uL RBC 3.42 L (4.20-5.50) X10*6/uL Hgb 8.8 L (12.0-16.0) g/dl Hct 26.4 L (37.0-47.0) % MCV 77.2 L (80.0-98.0) fL MCH 25.7 L (27.0-33.0) pg MCHC 33.3 (31.0-35.0) g/dl RDW 14.6 (11.0-16.0) % Plt Count 189 D (160-400) X10*3/uL MPV 9.7 (9.4-12.3) fL Immature Gran % (Auto) 1.4 H (0.0-0.4) % Neut % (Auto) 75.2 H (45-73) % Lymph % (Auto) 19.1 L (20-40) % [place] % (Auto) 4.1 (2-11) % Eos % (Auto) 0.0 (0-4) % Baso % (Auto) 0.2 (0-2) % Lymph # (Auto) 0.8 L (1.2-4.9) X10*3/uL [place] # (Auto) 0.2 (0.1-1.2) X10*3/uL Eos # (Auto) 0.0 (0.0-0.4) X10*3/uL Baso # (Auto) 0.0 (0.0-0.2) X10*3/uL Abs Immat Gran (auto) 0.06 H (0.00-0.03) X10*3/uL Absolute Neuts (auto) 3.2 (2.0-8.3) x10*3/uL Absolute Nucleated RBC 0.000 (0.0-0.012) X10*3/uL Nucleated RBC % (auto) 0.0 (0.0-0.2) /100WBC Sodium 134 L (135-145) mmol/L Potassium 3.3 (3.3-5.1) mmol/L Chloride 107 (96-108) mmol/L Carbon Dioxide 20 L (22-29) mmol/L Anion Gap 10 L (12-20) BUN 8 L (9-16) mg/dL Creatinine 0.62 (0.5-1.4) mg/dL Estim Creat Clear Calc 113.5 Estimated GFR > 60 Random Glucose 95 (60-115) mg/dL Lactic Acid 1.2 1.1 (0.5-2.0) mmol/L Calcium 7.7 L D (8.4-10.2) mg/dL Total Bilirubin 0.7 (0.0-1.0) mg/dL AST 107 H (5-31) U/L ALT 69 H (0-31) U/L Alkaline Phosphatase 137 H (39-117) U/L Total Protein 6.0 L (6.5-8.0) g/dL Albumin 3.1 L (3.5-5.0) g/dL Beta HCG, Quant 997 mIU/mL Urine Color Dark Yellow Urine Appearance Clear Urine pH 6.0 (5.0-9.0) Ur Specific [place] 1.025 (1.005-1.025) Urine Protein 30 (1+) H (Neg-Trace) mg/dL Urine Glucose (UA) Negative (Negative) mg/dL Urine Ketones Trace (Negative) mg/dL Urine Blood Moderate (2+) H (Negative) Urine Nitrite Negative (Negative) Ur Leukocyte Esterase Small (1+) H (Negative) Urine RBC >20 H (0-2) /HPF Urine WBC 11-20 H (0-5) /HPF Ur Squamous Epith Cells 0-2 (0-2) /HPF Urine Bacteria None Seen (None Seen) Hyaline Casts 0-2 (0-2) /LPF Independent Interpretation I performed an independent interpretation of an: CT Scan Radiology Impression Discussion of test interpretation with radiology: I have reviewed the radiologist's reading. Radiologist Impression: [address] [address] Ultrasound Report Signed Patient: Malu Benedict MR#: [id number] : 1995 Acct:[id number] Age/Sex: 29 / F ADM Date: 06/16/24 Loc: .ED Attending Dr: Ordering Physician: Woody Escudero MD Date of Service: 06/17/24 Procedure(s): US OB <= 14 weeks fetus Accession Number(s): [id number] cc: Woody Escudero MD; Shantell Cosby MD~ CLINICAL HISTORY: HCG 1750, took pills 1 week ago, retained --- Additional Notes or Special Instructions: Please evaluate for possible retained products of conception [facility] OBSTETRICAL ULTRASOUND COMPARISON: None. FINDINGS: There is no intrauterine gestational sac. No adnexal mass or loculated fluid collection. Heterogeneous material is noted within the endometrial cavity. The endometrial cavity measures approximately 2.2 cm in thickness on image 6. There is no hypervascularity. Left ovary measures 2.7 x 1.9 x 1.8 cm and is unremarkable. Right ovary measures 4.2 x 1.9 x 2.3 cm and contains a 2.1 x 1.6 x 2.1 cm probable corpus luteum cyst. IMPRESSION: 1. There is no intrauterine gestation. Differential considerations include early intrauterine , ectopic , and miscarriage. Correlation with serial beta-hCG levels is advised. A follow-up ultrasound examination can be considered, as clinically directed. 2. Heterogeneous material is noted within the endometrial cavity, with the endometrial cavity measuring approximately 2.2 cm in thickness. There is no hypervascularity. If the patient has miscarried, retained products of conception will need to be excluded. Consultation with [facility] [facility] is advised to determine appropriate management/follow-up. This document has been electronically signed by: Claudio Strong M.D. on 06/17/2024 04:05:59 Discharge Plan Discharge Clinical Impression: Incomplete complicated by genital tract and pelvic infection, Endometritis, Blood bacterial culture positive Patient Disposition: [facility] Transfer Details: [facility] Dr Brown Prescriptions: No Action doxycycline monohydrate 100 mg capsule 100 mg PO BID Qty: 20 0RF naproxen 500 mg tablet 500 mg PO BID PRN (Reason: pain) Qty: 20 0RF prednisone 20 mg tablet 60 mg PO DAILY 4 Days Qty: 12 0RF erythromycin 5 mg/gram (0.5 %) ointment 0.5 inch ophthalmic (eye) BID 7 Days Qty: 3.5 0RF lorazepam 1 mg tablet 1 mg PO TID PRN (Reason: anxiety) Qty: 10 0RF ondansetron 4 mg tablet,disintegrating 4 mg PO Q6H PRN (Reason: nausea and vomiting) Qty: 10 0RF polymyxin B sulf-trimethoprim [Polytrim] 10,000 unit- 1 mg/mL drops 1 drp ophthalmic (eye) Q3H 7 Days Qty: 10 0RF Rx Instructions: while awake; do not exceed 6 doses in 24 hours doxycycline hyclate 100 mg tablet 100 mg PO BID 10 Days Qty: 20 0RF naproxen 500 mg tablet 500 mg PO BID PRN (Reason: pain) Qty: 14 0RF Print Language: Omani
[2024-06-18 01:32] LABS: Appearance Urine Clear; Color Urine Dark Yellow; Glucose Urine UA Negative (Negative); Leukocyte Esterase Urine Small (1+) (Negative); Nitrite Urine Negative (Negative); Specific Gravity - Urine 1.025 (1.005-1.025); UMIC TRIGGER UACC YES; Urine Blood Moderate (2+) (Negative); Urine Ketones Trace mg/dL (Negative); Urine Protein 30 (1+) mg/dL (Neg-Trace)
[2024-06-18 01:36] LABS: Bacteria Urine None Seen (None Seen); Hyaline Casts Urine 0-2 /LPF (0-2); RBC Urine >20 /HPF (0-2); Squamous Epithelial Cell Urine 0-2 /HPF (0-2); UACC Culture Trigger YES
[2024-06-18 01:39] VITALS: BP 96/49; PULSE 88; RESP 16; TEMP 37; O2SAT 96
[2024-06-18] MEDS: SUMAtriptan succinate 6 MG/0.5 ML VIAL SUBCUT (01:40)
--- NOTE | 2024-06-18 02:38 | PC.NURSE ---
report given to RN at [facility]
[2024-06-18 02:59] VITALS: BP 96/49; PULSE 88; RESP 16; TEMP 37; O2SAT 96
== END 2024-06-18 03:00 | disposition short-term general hospital (02) ==
PROVIDERS: Emergency Provider Internal Medicine
DX: O03.0 Genital tract and pelvic infection following incomplete spontaneous abortion (principal); R78.81 Bacteremia; N71.9 Inflammatory disease of uterus, unspecified; Z79.899 Other long term (current) drug therapy
CPT/HCPCS: 36415; 80053; 81001; 83605; 84702; 85025; 87040; 87086; 96365; 96372; 96375; 99285; J2270; J2405; J2543; J3030